=== PATIENT | male | born 1940 | race Caucasian/White ===

== ENCOUNTER → 2021-06-19 09:35 | Outpatient (BNVA) | payer MEDICARE, OTHER, SELFPAY | PROVIDERS: PCP Internal Medicine; Visit Provider Internal Medicine | DX: I49.5 Sick sinus syndrome (principal); Z95.0 Presence of cardiac pacemaker ==

== ENCOUNTER → 2021-09-16 13:56 | Outpatient (BNVA) | payer MEDICARE, OTHER, SELFPAY | PROVIDERS: PCP Internal Medicine; Visit Provider Internal Medicine Cardiovascular Disease | DX: I49.5 Sick sinus syndrome (principal); Z95.0 Presence of cardiac pacemaker; I10 Essential (primary) hypertension; R42 Dizziness and giddiness; F17.210 Nicotine dependence, cigarettes, uncomplicated | CPT/HCPCS: 99213 ==

== ENCOUNTER → 2022-03-10 13:36 | Outpatient (BNVA) | payer MEDICARE, OTHER, SELFPAY | PROVIDERS: PCP Internal Medicine; Visit Provider Urology | DX: R97.20 Elevated prostate specific antigen [PSA] (principal); N41.9 Inflammatory disease of prostate, unspecified; G30.9 Alzheimer's disease, unspecified; F02.80 Dementia in other diseases classified elsewhere, unspecified severity, without behavioral disturbance, psychotic disturbance, mood disturbance, and anxiety; I49.5 Sick sinus syndrome; R33.9 Retention of urine, unspecified; R39.9 Unspecified symptoms and signs involving the genitourinary system; R82.71 Bacteriuria | CPT/HCPCS: 51741; 51798; 81003; 87077; 87086; 87186; 99203 ==

== ENCOUNTER → 2022-03-25 11:17 | Outpatient (BNVA) | payer MEDICARE, OTHER, SELFPAY | PROVIDERS: PCP Internal Medicine; Visit Provider Internal Medicine Cardiovascular Disease | DX: I49.5 Sick sinus syndrome (principal); Z95.0 Presence of cardiac pacemaker; I10 Essential (primary) hypertension; E78.5 Hyperlipidemia, unspecified; F17.210 Nicotine dependence, cigarettes, uncomplicated | CPT/HCPCS: 99213 ==

== ENCOUNTER → 2022-03-31 13:14 | Outpatient (BNVA) | payer MEDICARE, OTHER, SELFPAY | PROVIDERS: PCP Internal Medicine; Visit Provider Urology | DX: R39.89 Other symptoms and signs involving the genitourinary system (principal); R97.20 Elevated prostate specific antigen [PSA]; G30.9 Alzheimer's disease, unspecified; F02.80 Dementia in other diseases classified elsewhere, unspecified severity, without behavioral disturbance, psychotic disturbance, mood disturbance, and anxiety; I49.5 Sick sinus syndrome; R33.9 Retention of urine, unspecified; R39.9 Unspecified symptoms and signs involving the genitourinary system; R82.71 Bacteriuria | CPT/HCPCS: 55700; 76872; 76942; 88305 ==

== ENCOUNTER 2022-04-19 07:29 | Outpatient (CLI) | payer MEDICARE, OTHER, SELFPAY ==
[2022-04-19 08:11] LABS: Blood Urea Nitrogen 19 mg/dL (8-23)
[2022-04-19] MEDS: iohexol 350 mg/mL 500 mL Btl (per mL) IV (08:22)
--- NOTE | 2022-04-19 08:30 | CTR_ITS ---
PROCEDURE INFORMATION: Exam: CT Abdomen And Pelvis Without And With Contrast Exam date and time: 04/19/2022 8:16 AM Age: 81 years old Clinical indication: Initial staging oncological exam. Tumor/polyp/nodule location - prostate cancer. Prior surgery; Surgery date: 6+ months; Surgery type: Appy, left hip, pacemaker; Additional info: Prostate cancer, CT abd/pelvis with and without contrast soon TECHNIQUE: Imaging protocol: Computed tomography of the abdomen and pelvis without and with contrast. 3D rendering (Not supervised by radiologist): MIP and/or 3D reconstructed images were created by the technologist. Radiation optimization: All CT scans at this facility use at least one of these dose optimization techniques: automated exposure control; mA and/or kV adjustment per patient size (includes targeted exams where dose is matched to clinical indication); or iterative reconstruction. Contrast material: OMNIPAQUE 350; Contrast volume: 95 ml; Contrast route: INTRAVENOUS (IV); COMPARISON: CR XR hip LT 2-3V wo/w pel* [id number] 09/22/2017 10:30 AM RADIATION DOSE METRICS: Total DLP (mGy-cm): 3078.32 FINDINGS: Pleural spaces: Small bilateral pleural effusions. Liver: Normal. No mass. Gallbladder and bile ducts: Normal. No calcified stones. No ductal dilation. Pancreas: Normal. No ductal dilation. Spleen: Normal. No splenomegaly. Adrenal glands: Normal. No mass. Kidneys and ureters: There is a 4.5 cm benign-appearing cysts in the left kidney. No hydronephrosis. Stomach and bowel: Sigmoid diverticulosis. No diverticulitis. No significant bowel dilatation or evidence of obstruction. Appendix: No evidence of appendicitis. Intraperitoneal space: Unremarkable. No free air. No significant fluid collection. Vasculature: Abdominal aorta and iliac arteries are calcified. No abdominal aortic aneurysm. Lymph nodes: Unremarkable. No enlarged lymph nodes. Urinary bladder: Unremarkable as visualized. Reproductive: The prostate is unremarkable as visualized. Bones/joints: A left hip prosthesis is present in satisfactory position. Chronic degenerative changes are present in the spine. No acute bony abnormality. Soft tissues: Unremarkable. CT/CT abdomen pelvis wo/w [id number] IMPRESSION: 1. Small pleural effusions. 2. No acute abnormality in the abdomen.. No evidence of metastatic disease. COMMENTS: Consistent with the [employer]'s Incidental Findings Committee white paper (J Am Adam Radiol 2018): Any incidental renal lesion less than 1 cm or classified as too small to characterize, or any incidental cystic renal lesion characterized as simple-appearing, is likely benign. No follow-up imaging is recommended for these lesions per consensus recommendations based on imaging criteria.
== END 2022-04-19 07:30 | disposition home or self-care (01) ==
PROVIDERS: PCP Internal Medicine; Visit Provider Urology
DX: C61 Malignant neoplasm of prostate (principal); J90 Pleural effusion, not elsewhere classified
CPT/HCPCS: 74178; 82565; 84520; Q9967

== ENCOUNTER 2022-04-21 07:26 | Outpatient (CLI) | payer MEDICARE, OTHER, SELFPAY ==
--- NOTE | 2022-04-21 07:45 | NM_ITS ---
WS: [id number] NUCLEAR MEDICINE BONE SCAN Radiopharmaceutical: 26.3 Tc-99m MDP mCi IV Injection site: antecubital Postinjection imaging delay: 1 hr CLINICAL INFORMATION: PROSTATE CANCER COMPARISON: None. FINDINGS: Bone lesions: Multiple punctate foci of radiotracer uptake involving the bilateral ribs suspicious fo r metastatic disease. Patchy areas of uptake within the lower thoracic and lumbar spine some of which may be degenerative but suspicious for metastatic disease. Additional focal area of activity LEFT lo wer cervical spine near the thyroid Soft tissue contours: Normal. Kidneys: Normal. Other findings: Degenerative type uptake involving both AC joints and sternoclavicular joints. Degene rative type uptake involving the base of the 1st LEFT metatarsal and both knees. IMPRESSION: 1. Numerous punctate foci of bony uptake involving the bilateral ribs suspicious for metastatic dise ase. 2. Additional punctate areas of uptake involving the posterior elements in the lower thoracic and heena mbar spine some of which may be degenerative but suspicious for metastatic disease. 3. aAdditional punctate focus of uptake in the LEFT lower cervical spine suspicious for metastatic d isease.
== END 2022-04-21 07:27 | disposition home or self-care (01) ==
LOC: RAD 07:30
PROVIDERS: PCP Internal Medicine; Visit Provider Urology
DX: C61 Malignant neoplasm of prostate (principal); R39.9 Unspecified symptoms and signs involving the genitourinary system; R33.8 Other retention of urine; N41.9 Inflammatory disease of prostate, unspecified; Z98.890 Other specified postprocedural states
CPT/HCPCS: 51798; 78306; 81003; 99214; A9561

== ENCOUNTER → 2022-04-22 09:20 | Outpatient (BNVA) | payer MEDICARE, OTHER, SELFPAY | PROVIDERS: PCP Internal Medicine; Visit Provider Internal Medicine | DX: Z45.010 Encounter for checking and testing of cardiac pacemaker pulse generator [battery] (principal) | CPT/HCPCS: 93296 ==

== ENCOUNTER 2022-05-03 07:39 | Oncology outpatient (recurring) (ONCR) | payer MEDICARE, OTHER, SELFPAY | END 2022-05-18 23:59 | disposition home or self-care (01) | PROVIDERS: PCP Internal Medicine; Visit Provider Internal Medicine Hematology & Oncology | DX: C61 Malignant neoplasm of prostate (principal); J90 Pleural effusion, not elsewhere classified; C79.51 Secondary malignant neoplasm of bone; F17.210 Nicotine dependence, cigarettes, uncomplicated; Z79.52 Long term (current) use of systemic steroids; Z79.818 Long term (current) use of other agents affecting estrogen receptors and estrogen levels; Z79.899 Other long term (current) drug therapy | CPT/HCPCS: 99204 ==

== ENCOUNTER → 2022-05-05 15:22 | Outpatient (BNVA) | payer MEDICARE, OTHER, SELFPAY | PROVIDERS: PCP Internal Medicine; Visit Provider Urology | DX: C61 Malignant neoplasm of prostate (principal); R33.8 Other retention of urine; R39.9 Unspecified symptoms and signs involving the genitourinary system; N41.9 Inflammatory disease of prostate, unspecified | CPT/HCPCS: 99213 ==

== ENCOUNTER → 2022-05-27 10:32 | Outpatient (BNVA) | payer MEDICARE, OTHER, SELFPAY | PROVIDERS: PCP Internal Medicine; Visit Provider Urology | DX: C61 Malignant neoplasm of prostate (principal); R33.8 Other retention of urine; R39.9 Unspecified symptoms and signs involving the genitourinary system; K92.1 Melena | CPT/HCPCS: 36415; 52000; 85025; 99213 ==

== ENCOUNTER 2022-06-07 13:31 | Oncology outpatient (recurring) (ONCR) | payer MEDICARE, OTHER, SELFPAY | END 2022-06-15 23:59 | disposition home or self-care (01) | LOC: ONCMED 13:31 | PROVIDERS: PCP Internal Medicine; Visit Provider Internal Medicine Hematology & Oncology | DX: C61 Malignant neoplasm of prostate (principal); C79.51 Secondary malignant neoplasm of bone; F17.210 Nicotine dependence, cigarettes, uncomplicated; Z79.52 Long term (current) use of systemic steroids; Z79.818 Long term (current) use of other agents affecting estrogen receptors and estrogen levels; Z79.899 Other long term (current) drug therapy | CPT/HCPCS: 99213; 99214 ==

== ENCOUNTER 2022-07-12 08:47 | Oncology outpatient (recurring) (ONCR) | payer MEDICARE, OTHER, SELFPAY ==
[2022-07-12 09:13] LABS: Basophils # 0.1 10^3/uL (0.0-0.1); Basophils % 1.2 %; Eosinophils # 0.2 10^3/uL (0.0-0.8); Eosinophils % 1.5 %; Hematocrit 29.5 % (42.0-52.0); Hemoglobin 9.6 g/dL (11.7-16.6); Lymphocytes # 1.4 10^3/uL (0.8-4.8); Lymphocytes % 14.3 %; Mean Corpuscular HGB Conc 32.5 g/dL (30.0-36.0); Mean Corpuscular Hemoglobin 29.8 pg (28.0-34.0); Mean Corpuscular Volume 91.6 fl (80-94); Monocytes % 9.7 %; Neutrophils # 7.16 10^3/uL (1.8-7.7); Neutrophils % 71.9 %; Nucleated Red Blood Cells % 0 %; Platelet Count 197 10^3/cmm (130-400); Red Blood Count 3.22 10^6/uL (4.1-5.3); Red Cell Distribution Width 16.2 % (12.1-15.1)
[2022-07-12 09:41] LABS: Alanine Aminotransferase 23 U/L (0-41); Albumin Level 3.7 g/dL (3.5-5.2); Alkaline Phosphatase 156 U/L (40-130); Anion Gap 16.6 (5-19); Aspartate Amino Transferase 40 U/L (0-40); Blood Urea Nitrogen 16 mg/dL (8-23); Calcium 8.8 mg/dL (8.5-10.5); Carbon Dioxide 25 mmol/L (22-29); Chloride 94 mmol/L (98-107); Globulin 2.9 g/dL (1.3-4.6); Glucose 116 mg/dL (65-115); Osmolality Calculated 274 mOsm/kg (285-295); Potassium 4.6 mmol/L (3.5-5.1); Sodium 131 mmol/L (136-145); Testosterone Total 227.4 ng/dL (193-740); Total Bilirubin 0.4 mg/dL (0.15-1.2); Total Protein 6.6 g/dL (6.6-8.7)
== END 2022-07-16 23:59 | disposition home or self-care (01) ==
PROVIDERS: Nurse Practitioner; PCP Internal Medicine; Visit Provider Internal Medicine Hematology & Oncology
DX: C61 Malignant neoplasm of prostate (principal); J90 Pleural effusion, not elsewhere classified; C79.51 Secondary malignant neoplasm of bone; F17.210 Nicotine dependence, cigarettes, uncomplicated; Z79.52 Long term (current) use of systemic steroids; Z79.818 Long term (current) use of other agents affecting estrogen receptors and estrogen levels; Z79.899 Other long term (current) drug therapy; C77.8 Secondary and unspecified malignant neoplasm of lymph nodes of multiple regions
CPT/HCPCS: 36415; 80053; 84153; 84403; 85025; 99215

== ENCOUNTER → 2022-07-29 12:36 | Outpatient (BNVA) | payer MEDICARE, OTHER, SELFPAY | PROVIDERS: PCP Internal Medicine; Visit Provider Nurse Practitioner Family | DX: I10 Essential (primary) hypertension (principal); Z95.0 Presence of cardiac pacemaker; F17.210 Nicotine dependence, cigarettes, uncomplicated; Z79.82 Long term (current) use of aspirin | CPT/HCPCS: 99214 ==

== ENCOUNTER 2022-08-02 08:00 | Oncology outpatient (recurring) (ONCR) | payer MEDICARE, OTHER, SELFPAY ==
[2022-07-26] MEDS: denosumab 120 mg SDV SUBCUT (14:31)
[2022-07-26] MEDS: leuprolide 22.5 mg Kit IM (14:32)
[2022-07-26 14:40] VITALS: BP 130/57; PULSE 73; RESP 18; TEMP 36.6; O2SAT 93
[2022-08-02 08:12] LABS: Basophils # 0.1 10^3/uL (0.0-0.1); Basophils % 1.8 %; Eosinophils # 0.4 10^3/uL (0.0-0.8); Eosinophils % 4.7 %; Hematocrit 33.3 % (42.0-52.0); Hemoglobin 10.4 g/dL (11.7-16.6); Lymphocytes # 1.7 10^3/uL (0.8-4.8); Lymphocytes % 21.8 %; Mean Corpuscular HGB Conc 31.2 g/dL (30.0-36.0); Mean Corpuscular Volume 92.8 fl (80-94); Mean Platelet Volume 10.2 fL (7.4-10.4); Monocytes # 0.6 10^3/uL (0.2-0.9); Monocytes % 7.5 %; Neutrophils # 4.91 10^3/uL (1.8-7.7); Neutrophils % 63.6 %; Nucleated Red Blood Cells % 0 %; Platelet Count 232 10^3/cmm (130-400); Red Blood Count 3.59 10^6/uL (4.1-5.3); Red Cell Distribution Width 16.6 % (12.1-15.1); White Blood Count 7.7 10^3/uL (4.0-10.0)
[2022-08-02 08:41] LABS: Alanine Aminotransferase 16 U/L (0-41); Albumin Level 4.1 g/dL (3.5-5.2); Alkaline Phosphatase 186 U/L (40-130); Anion Gap 17.6 (5-19); Aspartate Amino Transferase 37 U/L (0-40); Blood Urea Nitrogen 22 mg/dL (8-23); Calcium 8.4 mg/dL (8.5-10.5); Carbon Dioxide 21 mmol/L (22-29); Chloride 98 mmol/L (98-107); Globulin 3.5 g/dL (1.3-4.6); Glucose 151 mg/dL (65-115); Osmolality Calculated 278 mOsm/kg (285-295); Potassium 5.6 mmol/L (3.5-5.1); Sodium 131 mmol/L (136-145); Testosterone Total 291.9 ng/dL (193-740); Total Bilirubin 0.3 mg/dL (0.15-1.2); Total Protein 7.6 g/dL (6.6-8.7)
[2022-08-02 11:20] LABS: Ferritin 53 ng/mL (30-400); Iron 79 ug/dL (59-158); Percent Saturation 18.4 % (20-50); Total Iron Binding Capacity 429 mcg/dl; Unsaturated Iron Binding 350 ug/dL (112-347)
[2022-08-02 11:36] LABS: Vitamin B12 308 pg/mL (232-1245)
== END 2022-08-15 23:59 | disposition home or self-care (01) ==
PROVIDERS: PCP Internal Medicine; Visit Provider Internal Medicine Hematology & Oncology
DX: C61 Malignant neoplasm of prostate; C77.8 Secondary and unspecified malignant neoplasm of lymph nodes of multiple regions; C79.51 Secondary malignant neoplasm of bone; Z79.52 Long term (current) use of systemic steroids; Z79.818 Long term (current) use of other agents affecting estrogen receptors and estrogen levels; Z79.899 Other long term (current) drug therapy; D64.9 Anemia, unspecified; F17.210 Nicotine dependence, cigarettes, uncomplicated
CPT/HCPCS: 36415; 51741; 51798; 80053; 81003; 82607; 82728; 83540; 83550; 84153; 84403; 85025; 96372; 99213; 99214; J0897; J9217

== ENCOUNTER 2022-08-25 07:49 | Oncology outpatient (recurring) (ONCR) | payer MEDICARE, OTHER, SELFPAY ==
[2022-08-25 08:20] LABS: Basophils # 0.1 10^3/uL (0.0-0.1); Basophils % 0.9 %; Eosinophils # 0.2 10^3/uL (0.0-0.8); Hematocrit 32.2 % (42.0-52.0); Hemoglobin 10.1 g/dL (11.7-16.6); Lymphocytes # 1.3 10^3/uL (0.8-4.8); Lymphocytes % 16.7 %; Mean Corpuscular HGB Conc 31.4 g/dL (30.0-36.0); Mean Corpuscular Hemoglobin 30.1 pg (28.0-34.0); Mean Corpuscular Volume 96.1 fl (80-94); Mean Platelet Volume 9.3 fL (7.4-10.4); Monocytes # 0.5 10^3/uL (0.2-0.9); Monocytes % 6.3 %; Neutrophils # 5.69 10^3/uL (1.8-7.7); Nucleated Red Blood Cells % 0 %; Platelet Count 252 10^3/cmm (130-400); Red Blood Count 3.35 10^6/uL (4.1-5.3); Red Cell Distribution Width 16.5 % (12.1-15.1); White Blood Count 7.7 10^3/uL (4.0-10.0)
[2022-08-25 09:31] LABS: Alanine Aminotransferase 17 U/L (0-41); Albumin Level 4.1 g/dL (3.5-5.2); Alkaline Phosphatase 161 U/L (40-130); Aspartate Amino Transferase 20 U/L (0-40); Blood Urea Nitrogen 26 mg/dL (8-23); Calcium 7.6 mg/dL (8.5-10.5); Carbon Dioxide 20 mmol/L (22-29); Chloride 100 mmol/L (98-107); Ferritin 46 ng/mL (30-400); Globulin 2.7 g/dL (1.3-4.6); Glucose 112 mg/dL (65-115); Iron 80 ug/dL (59-158); Osmolality Calculated 276 mOsm/kg (285-295); Percent Saturation 22.7 % (20-50); Sodium 130 mmol/L (136-145); Total Bilirubin 0.2 mg/dL (0.15-1.2); Total Iron Binding Capacity 351 mcg/dl; Total Protein 6.8 g/dL (6.6-8.7); Unsaturated Iron Binding 271 ug/dL (112-347)
[2022-08-25] MEDS: denosumab 120 mg SDV SUBCUT (10:32)
[2022-08-25 11:26] LABS: Potassium 6.5 mmol/L (3.5-5.1)
[2022-08-25] MEDS: sodium chloride 0.9% 250 ML IV (14:06)
[2022-08-25 15:49] LABS: Potassium 5.6 mmol/L (3.5-5.1)
== END 2022-09-15 23:59 | disposition home or self-care (01) ==
PROVIDERS: Nurse Practitioner Family; PCP Internal Medicine; Visit Provider Internal Medicine Hematology & Oncology
DX: C61 Malignant neoplasm of prostate; C79.51 Secondary malignant neoplasm of bone; C77.8 Secondary and unspecified malignant neoplasm of lymph nodes of multiple regions; E86.0 Dehydration; E87.5 Hyperkalemia; E83.51 Hypocalcemia; Z79.818 Long term (current) use of other agents affecting estrogen receptors and estrogen levels; Z79.52 Long term (current) use of systemic steroids; Z79.899 Other long term (current) drug therapy; D64.9 Anemia, unspecified
CPT/HCPCS: 36415; 80053; 82728; 83540; 83550; 84132; 84153; 85025; 96372; 99214; J0897; J7040

== ENCOUNTER 2022-09-22 09:18 | Oncology outpatient (recurring) (ONCR) | payer MEDICARE, OTHER, SELFPAY ==
[2022-09-22 09:31] VITALS: BP 166/83; PULSE 76; RESP 18; TEMP 36.6; O2SAT 98
[2022-09-22 09:33] LABS: Basophils # 0.1 10^3/uL (0.0-0.1); Basophils % 0.9 %; Eosinophils # 0.1 10^3/uL (0.0-0.8); Eosinophils % 1.5 %; Hematocrit 33.9 % (42.0-52.0); Hemoglobin 10.9 g/dL (11.7-16.6); Lymphocytes # 1.3 10^3/uL (0.8-4.8); Lymphocytes % 20.5 %; Mean Corpuscular HGB Conc 32.2 g/dL (30.0-36.0); Mean Corpuscular Hemoglobin 30.7 pg (28.0-34.0); Mean Corpuscular Volume 95.5 fl (80-94); Mean Platelet Volume 8.8 fL (7.4-10.4); Monocytes # 0.5 10^3/uL (0.2-0.9); Monocytes % 8.3 %; Neutrophils # 4.47 10^3/uL (1.8-7.7); Neutrophils % 68.5 %; Nucleated Red Blood Cells % 0 %; Platelet Count 260 10^3/cmm (130-400); Red Blood Count 3.55 10^6/uL (4.1-5.3); Red Cell Distribution Width 15.4 % (12.1-15.1); White Blood Count 6.5 10^3/uL (4.0-10.0)
[2022-09-22 10:05] LABS: Alanine Aminotransferase 13 U/L (0-41); Albumin Level 4.3 g/dL (3.5-5.2); Alkaline Phosphatase 157 U/L (40-130); Anion Gap 15.9 (5-19); Aspartate Amino Transferase 17 U/L (0-40); Blood Urea Nitrogen 26 mg/dL (8-23); Calcium 8.5 mg/dL (8.5-10.5); Carbon Dioxide 22 mmol/L (22-29); Chloride 93 mmol/L (98-107); Globulin 2.8 g/dL (1.3-4.6); Glucose 105 mg/dL (65-115); Osmolality Calculated 265 mOsm/kg (285-295); Potassium 5.9 mmol/L (3.5-5.1); Sodium 125 mmol/L (136-145); Total Bilirubin 0.3 mg/dL (0.15-1.2); Total Protein 7.1 g/dL (6.6-8.7)
[2022-09-22] MEDS: denosumab 120 mg SDV SUBCUT (11:50)
[2022-09-22] MEDS: sodium chloride 0.9% 250 ML IV (11:51)
[2022-09-22 15:51] LABS: Potassium 5.1 mmol/L (3.5-5.1)
[2022-09-22 16:00] VITALS: BP 122/64; PULSE 61; RESP 16; TEMP 36.1; O2SAT 94
== END 2022-10-15 23:59 | disposition home or self-care (01) ==
PROVIDERS: PCP Internal Medicine; Visit Provider Internal Medicine Hematology & Oncology
DX: C61 Malignant neoplasm of prostate; C79.51 Secondary malignant neoplasm of bone; E83.51 Hypocalcemia; R19.7 Diarrhea, unspecified; E87.5 Hyperkalemia; Z79.899 Other long term (current) drug therapy; F17.210 Nicotine dependence, cigarettes, uncomplicated
CPT/HCPCS: 80053; 84132; 84153; 85025; 96360; 96372; 99214; J0897; J7050

== ENCOUNTER 2022-10-20 13:07 | Oncology outpatient (recurring) (ONCR) | payer MEDICARE, OTHER, SELFPAY ==
[2022-10-20 13:19] VITALS: BP 97/57; PULSE 79; RESP 18; TEMP 37.1; O2SAT 93
[2022-10-20 13:32] LABS: Basophils # 0.1 10^3/uL (0.0-0.1); Basophils % 1.2 %; Eosinophils # 0.1 10^3/uL (0.0-0.8); Eosinophils % 1.3 %; Hematocrit 30.9 % (42.0-52.0); Hemoglobin 9.9 g/dL (11.7-16.6); Lymphocytes # 1.6 10^3/uL (0.8-4.8); Mean Corpuscular Hemoglobin 31.4 pg (28.0-34.0); Mean Corpuscular Volume 98.1 fl (80-94); Mean Platelet Volume 9.3 fL (7.4-10.4); Monocytes # 0.5 10^3/uL (0.2-0.9); Monocytes % 8.2 %; Neutrophils # 3.82 10^3/uL (1.8-7.7); Nucleated Red Blood Cells % 0 %; Platelet Count 255 10^3/cmm (130-400); Red Blood Count 3.15 10^6/uL (4.1-5.3); Red Cell Distribution Width 15.1 % (12.1-15.1); White Blood Count 6.1 10^3/uL (4.0-10.0)
[2022-10-20 15:11] LABS: Alanine Aminotransferase 14 U/L (0-41); Alkaline Phosphatase 111 U/L (40-130); Anion Gap 16.6 (5-19); Aspartate Amino Transferase 14 U/L (0-40); Blood Urea Nitrogen 34 mg/dL (8-23); Calcium 8.1 mg/dL (8.5-10.5); Carbon Dioxide 22 mmol/L (22-29); Chloride 101 mmol/L (98-107); Globulin 2.4 g/dL (1.3-4.6); Glucose 88 mg/dL (65-115); Osmolality Calculated 285 mOsm/kg (285-295); Potassium 5.6 mmol/L (3.5-5.1); Sodium 134 mmol/L (136-145); Total Bilirubin 0.2 mg/dL (0.15-1.2); Total Protein 6.4 g/dL (6.6-8.7)
[2022-10-20] MEDS: leuprolide 22.5 mg Kit IM (17:21)
== END 2022-11-15 23:59 | disposition home or self-care (01) ==
PROVIDERS: PCP Internal Medicine; Visit Provider Internal Medicine Hematology & Oncology
DX: C61 Malignant neoplasm of prostate; C77.8 Secondary and unspecified malignant neoplasm of lymph nodes of multiple regions; C79.51 Secondary malignant neoplasm of bone; R53.0 Neoplastic (malignant) related fatigue; R63.4 Abnormal weight loss; Z68.23 Body mass index [BMI] 23.0-23.9, adult; R42 Dizziness and giddiness; M25.59 Pain in other specified joint; R20.0 Anesthesia of skin; E87.5 Hyperkalemia; E83.51 Hypocalcemia; Z79.818 Long term (current) use of other agents affecting estrogen receptors and estrogen levels; Z79.899 Other long term (current) drug therapy
CPT/HCPCS: 36415; 80053; 84153; 85025; 96402; 99214; J9217

== ENCOUNTER → 2022-11-16 15:40 | Outpatient (BNVA) | payer MEDICARE, OTHER, SELFPAY | PROVIDERS: PCP Internal Medicine; Visit Provider Internal Medicine | DX: Z45.010 Encounter for checking and testing of cardiac pacemaker pulse generator [battery] (principal) | CPT/HCPCS: 93296 ==

== ENCOUNTER 2022-12-15 13:00 | Oncology outpatient (recurring) (ONCR) | payer MEDICARE, OTHER, SELFPAY ==
[2022-11-17 13:35] VITALS: BMI 23.0
[2022-11-17 13:36] VITALS: BP 134/57; PULSE 70; RESP 17; TEMP 36.4; O2SAT 93
[2022-11-17 14:16] LABS: Basophils # 0.1 10^3/uL (0.0-0.1); Basophils % 0.8 %; Eosinophils % 0.5 %; Hematocrit 31.9 % (42.0-52.0); Hemoglobin 10.3 g/dL (11.7-16.6); Lymphocytes # 1.2 10^3/uL (0.8-4.8); Lymphocytes % 15.6 %; Mean Corpuscular HGB Conc 32.3 g/dL (30.0-36.0); Mean Corpuscular Hemoglobin 32.8 pg (28.0-34.0); Mean Corpuscular Volume 101.6 fl (80-94); Monocytes # 0.5 10^3/uL (0.2-0.9); Monocytes % 7.2 %; Neutrophils # 5.66 10^3/uL (1.8-7.7); Neutrophils % 75.8 %; Nucleated Red Blood Cells % 0 %; Platelet Count 246 10^3/cmm (130-400); Red Blood Count 3.14 10^6/uL (4.1-5.3); Red Cell Distribution Width 13.7 % (12.1-15.1); White Blood Count 7.5 10^3/uL (4.0-10.0)
[2022-11-17 14:36] LABS: Alanine Aminotransferase 18 U/L (0-41); Albumin Level 3.9 g/dL (3.5-5.2); Alkaline Phosphatase 100 U/L (40-130); Anion Gap 13.5 (5-19); Aspartate Amino Transferase 20 U/L (0-40); Blood Urea Nitrogen 30 mg/dL (8-23); Calcium 8.9 mg/dL (8.5-10.5); Carbon Dioxide 25 mmol/L (22-29); Chloride 101 mmol/L (98-107); Globulin 2.4 g/dL (1.3-4.6); Glucose 102 mg/dL (65-115); Osmolality Calculated 284 mOsm/kg (285-295); Potassium 5.5 mmol/L (3.5-5.1); Sodium 134 mmol/L (136-145); Total Bilirubin 0.2 mg/dL (0.15-1.2); Total Protein 6.3 g/dL (6.6-8.7)
[2022-11-17] MEDS: denosumab 120 mg SDV SUBCUT (15:17)
== END 2022-12-16 23:59 | disposition home or self-care (01) ==
PROVIDERS: Nurse Practitioner Family; PCP Internal Medicine; Visit Provider Internal Medicine Hematology & Oncology
DX: Z53.9 Procedure and treatment not carried out, unspecified reason (principal)
CPT/HCPCS: 80053; 85025; 96372; J0897

== ENCOUNTER 2023-01-12 13:00 | Oncology outpatient (recurring) (ONCR) | payer MEDICARE, OTHER, SELFPAY ==
[2023-01-12 13:43] VITALS: BP 123/65; PULSE 81; RESP 18; TEMP 36.4; O2SAT 95
[2023-01-12 14:10] LABS: Basophils # 0.1 10^3/uL (0.0-0.1); Basophils % 0.5 %; Eosinophils % 0.3 %; Hematocrit 33.7 % (37-53); Lymphocytes # 1.2 10^3/uL (0.8-4.8); Lymphocytes % 11.8 %; Mean Corpuscular Hemoglobin 31.2 pg (27-33); Mean Corpuscular Volume 97.4 fl (82-101); Mean Platelet Volume 10.1 fL (7.4-10.4); Monocytes # 0.8 10^3/uL (0.2-0.9); Monocytes % 8.3 %; Neutrophils # 7.96 10^3/uL (1.8-7.7); Neutrophils % 78.1 %; Nucleated Red Blood Cells % 0 %; Platelet Count 242 10^3/cmm (157-399); Red Blood Count 3.46 10^6/uL (3.85-5.65); Red Cell Distribution Width 12.6 % (12.1-15.1); White Blood Count 10.18 10^3/uL (3.29-11.43)
[2023-01-12 14:42] LABS: Alanine Aminotransferase 16 U/L (0-41); Albumin Level 3.8 g/dL (3.5-5.2); Alkaline Phosphatase 152 U/L (40-130); Anion Gap 11.4 (5-19); Aspartate Amino Transferase 37 U/L (0-40); Blood Urea Nitrogen 26 mg/dL (8-23); Calcium 8.8 mg/dL (8.5-10.5); Carbon Dioxide 28 mmol/L (22-29); Chloride 99 mmol/L (98-107); Globulin 3.2 g/dL (1.3-4.6); Glucose 113 mg/dL (65-115); Osmolality Calculated 284 mOsm/kg (285-295); Potassium 4.4 mmol/L (3.5-5.1); Sodium 134 mmol/L (136-145); Total Bilirubin 0.3 mg/dL (0.15-1.2)
[2023-01-12 15:19] LABS: Testosterone Total 2.5 ng/dL (193-740)
[2023-01-12] MEDS: leuprolide 22.5 mg Kit IM (16:15)
[2023-01-12] MEDS: denosumab 120 mg SDV SUBCUT (16:15)
== END 2023-01-15 23:59 | disposition home or self-care (01) ==
PROVIDERS: Nurse Practitioner Family; PCP Internal Medicine; Visit Provider Internal Medicine Medical Oncology
DX: C61 Malignant neoplasm of prostate (principal); F32.A Depression, unspecified; Z79.899 Other long term (current) drug therapy
CPT/HCPCS: 36415; 80053; 84153; 84403; 85025; 96372; 96402; 99214; J0897; J9217

== ENCOUNTER 2023-01-27 07:05 | Outpatient (CLI) | payer MEDICARE, OTHER, SELFPAY ==
[2023-01-27] MEDS: iohexol 350 mg/mL 500 mL Btl (per mL) IV (08:22)
[2023-01-27] MEDS: iohexol 350 mg/mL 500 mL Btl (per mL) PO (08:22)
--- NOTE | 2023-01-27 08:30 | CTR_ITS ---
PROCEDURE INFORMATION: Exam: CT Chest With Contrast; Diagnostic Exam date and time: 01/27/2023 8:33 AM Age: 82 years old Clinical indication: Abnormal findings; Abnormal lab test; Other: Increased psa; Abnormal diagnostic tests; Prior surgery; Surgery date: 6+ months; Surgery type: Appy, pacemaker, lt hip; Patient HX: Cancer (type)--prostate, bone, lymph nodes TECHNIQUE: Imaging protocol: Diagnostic computed tomography of the chest with contrast. Radiation optimization: All CT scans at this facility use at least one of these dose optimization techniques: automated exposure control; mA and/or kV adjustment per patient size (includes targeted exams where dose is matched to clinical indication); or iterative reconstruction. Contrast material: OMNI 350; Contrast volume: 100 ml; Contrast route: INTRAVENOUS (IV); REPORTING DATA: Count of CT and Cardiac NM exams in prior 12 months: This patient has received [address] and 0 known cardiac nuclear medicine studies in the 12 months prior to the current study. COMPARISON: NM bone scan whole body* [id number] 04/21/2022 7:45 AM RADIATION DOSE METRICS: Total DLP (mGy-cm): 679.88 FINDINGS: Tubes, catheters and devices: There is a dual-lead AICD with leads positioned in the right atrium and right ventricle. Lungs: There is moderate diffuse centrilobular emphysema. There is minimal upper lung predominant paraseptal emphysema. There is minimal subpleural fine reticular opacity in the lower lungs bilaterally. There is an 11 x 10 mm focus of mixed ground-glass and reticular opacity in the left upper lobe on axial series 4, image 12. Pleural spaces: There is no pleural effusion or pneumothorax. Heart: Heart size is normal. There is no pericardial effusion. Lymph nodes: There is no mediastinal or hilar lymphadenopathy. Vasculature: There is mild aortic atherosclerotic disease. The central pulmonary arteries are unremarkable. Bones/joints: There are sclerotic osseous lesions involving the ribs, thoracic spine, left clavicle, left humerus, and bilateral scapulae. No acute fracture. Soft tissues: The extrathoracic soft tissues are unremarkable. PROCEDURE INFORMATION: Exam: CT Abdomen And Pelvis With Contrast Exam date and time: 01/27/2023 8:33 AM Age: 82 years old Clinical indication: Abnormal findings; Abnormal lab test; Other: Increased psa; Abnormal diagnostic tests; Prior surgery; Surgery date: 6+ months; Surgery type: Appy, pacemaker, lt hip; Patient HX: Cancer (type)--prostate, bone, lymph nodes TECHNIQUE: Imaging protocol: Computed tomography of the abdomen and pelvis with contrast. Radiation optimization: All CT scans at this facility use at least one of these dose optimization techniques: automated exposure control; mA and/or kV adjustment per patient size (includes targeted exams where dose is matched to clinical indication); or iterative reconstruction. Contrast material: OMNI 350; Contrast volume: 100 ml; Contrast route: INTRAVENOUS (IV); REPORTING DATA: Count of CT and Cardiac NM exams in prior 12 months: This patient has received [address] and 0 known cardiac nuclear medicine studies in the 12 months prior to the current study. COMPARISON: CT abdomen pelvis wo/w [id number] 04/19/2022 8:16 AM RADIATION DOSE METRICS: Total DLP (mGy-cm): 679.88 FINDINGS: Liver: The liver is normal. Gallbladder and bile ducts: The gallbladder is nondistended. No stones are seen. There is trace pericholecystic fluid in the gallbladder fossa. There is no biliary dilation. Pancreas: The pancreas is unremarkable. Spleen: The spleen is unremarkable. Adrenal glands: The adrenal glands are hypertrophic bilaterally. Kidneys and ureters: Bilateral renal vascular calcification. There are simple cysts in the left kidney. There is no hydronephrosis or stones. Stomach and bowel: The stomach is decompressed, preventing meaningful evaluation of wall thickness. The small bowel is nondilated. There is moderate sigmoid colonic diverticulosis without evidence of diverticulitis. Appendix: The appendix is absent. Intraperitoneal space: Trace simple free fluid in the lower abdomen. No intraperitoneal free air. Vasculature: There is moderate aortic atherosclerotic disease. The portal, splenic and superior mesenteric veins are patent. Lymph nodes: There is a 10 x 10 mm retroperitoneal lymph node in the left upper para-aortic region on axial series 5, image 30 which is slightly increased since 04/19/2022 when it measured 8 x 7 mm. No other enlarged retroperitoneal lymph nodes. No pelvic or inguinal lymph node enlargement. No mesenteric lymph node enlargement. Urinary bladder: There is mild diffuse bladder wall thickening suggesting muscular hypertrophy. Reproductive: The prostate and seminal vesicles are unremarkable. Bones/joints: There are sclerotic osseous metastases involving the lumbar spine, pelvis and sacrum. The left hip prosthesis is intact and well aligned. No acute fracture. Soft tissues: The abdominal wall is intact. CT/CT chest abdpel w/*[id number] IMPRESSION: 1. Sclerotic osseous metastases. 2. 11 x 10 mm focus of mixed ground-glass and reticular opacity in the left upper lobe is nonspecific and may represent focal fibrosis or minimal bronchiolitis. Metastasis is less likely but not unequivocally excluded. Recommend attention to this finding at follow-up. 3. Paraseptal and centrilobular emphysema with minimal subpleural reticular opacity in the lower lungs suggesting interstitial lung disease. IMPRESSION: 1. Sclerotic osseous metastases are new since 04/19/2022. 2. Borderline enlarged retroperitoneal lymph node (10 x 10 mm) slightly increased in size since 04/19/2022 (8 x 7 mm). Recommend attention to this finding at follow-up. 3. Trace intraperitoneal free fluid of unknown significance. 4. New bilateral adrenal hypertrophy. COMMENTS: Consistent with the [employer]'s Incidental Findings Committee white paper (J Am Adam Radiol 2018): Any incidental renal lesion less than 1 cm or classified as too small to characterize, or any incidental cystic renal lesion characterized as simple-appearing, is likely benign. No follow-up imaging is recommended for these lesions per consensus recommendations based on imaging criteria.
== END 2023-01-27 07:06 | disposition home or self-care (01) ==
LOC: RAD 07:06
PROVIDERS: PCP Internal Medicine; Visit Provider Nurse Practitioner Family
DX: C61 Malignant neoplasm of prostate (principal); C79.51 Secondary malignant neoplasm of bone; R59.0 Localized enlarged lymph nodes; I10 Essential (primary) hypertension; I49.5 Sick sinus syndrome; E78.5 Hyperlipidemia, unspecified; Z95.0 Presence of cardiac pacemaker; Z72.0 Tobacco use
CPT/HCPCS: 71260; 74177; 99214; Q9967

== ENCOUNTER 2023-01-28 07:45 | Outpatient (CLI) | payer MEDICARE, OTHER, SELFPAY ==
--- NOTE | 2023-01-28 08:45 | NM_ITS ---
WS: [id number] NUCLEAR MEDICINE BONE SCAN Radiopharmaceutical: 26.8 Tc-99m MDP mCi IV Injection site: Antecubital Postinjection imaging delay: 1 hr CLINICAL INFORMATION: increasing PSA COMPARISON: 04/21/2022 FINDINGS: Bone lesions: Areas of increased activity compatible with metastatic disease involving the ribs, thor acic spine, LEFT humerus, LEFT sterno clavicular junction extending into the sternum, and LEFT greate r than RIGHT scapula. Punctate foci of uptake in the thoracic and lumbar spine are progressed compare d to previous. Thoracolumbar scoliosis. Soft tissue contours: Normal. Kidneys: Normal. Other findings: Degenerative type uptake involving both AC joints and sternoclavicular joints. Degene rative type uptake involving the base of the 1st LEFT metatarsal and both knees. IMPRESSION: 1. Progressed metastatic disease compared to previous worse involving the sternoclavicular junction with new sternal lesion. 2. Progressed punctate lesions involving the thoracic and lumbar spine. 3. Numerous punctate foci of uptake involving the ribs appears progressed.
== END 2023-01-28 07:46 | disposition home or self-care (01) ==
LOC: RAD 07:46
PROVIDERS: PCP Internal Medicine; Visit Provider Nurse Practitioner Family
DX: C79.51 Secondary malignant neoplasm of bone (principal); C61 Malignant neoplasm of prostate
CPT/HCPCS: 78306; A9561

== ENCOUNTER 2023-02-09 20:41 | Inpatient (IN) | payer MEDICARE, OTHER, SELFPAY ==
--- NOTE | 2023-02-09 | USR_ITS ---
NOTE: Report was unsigned for reason: Order was edited. Original Signature date and time was: 02/10/23 @ 1:10 AM PROCEDURE INFORMATION: Exam: US Duplex Lower Extremity Veins, Bilateral Exam date and time: 02/10/2023 12:20 AM Age: 82 years old Clinical indication: Condition or disease; Patient HX: Prostate cancer with mets, elevated d-dimer, shortness of breath; Additional info: Sandhu TECHNIQUE: Imaging protocol: Real-time duplex ultrasound of the bilateral extremities with 2-D pierre scale, color Doppler flow and spectral waveform analysis including responses to compression and other maneuvers (when performed) with image documentation. Complete exam focused on the lower extremity veins. COMPARISON: CT chest abdpel w/*[id number] 01/27/2023 8:33 AM FINDINGS: Right deep veins: Unremarkable. The common femoral, femoral, proximal profunda femoral and popliteal veins are patent without thrombus. Normal Doppler waveforms. Normal compressibility and/or augmentation response. Left deep veins: Unremarkable. The common femoral, femoral, proximal profunda femoral and popliteal veins are patent without thrombus. Normal Doppler waveforms. Normal compressibility and/or augmentation response. Superficial veins: Bilateral saphenofemoral junctions are patent without thrombus. Soft tissues: Right calf edema. Left calf edema. IMPRESSION: No evidence of acute deep venous thrombosis. Mild edema noted in each. MTDD
--- NOTE | 2023-02-09 20:47 | ECG_ITS ---
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 Measurements Intervals [place] Rate: 102 P: 69 NE: 209 QRS: 160 QRSD: 149 T: 73 QT: 370 QTc: 482 Interpretive Statements ELECTRONIC VENTRICULAR PACEMAKER Compared to ECG 06/05/2015 05:59:25 AV dual-paced complex(es) or rhythm no longer present Electronically Signed On 02-09-2023 23:38:17 CDT by Gomez Sanchez M.D. [id number]
[2023-02-09 20:48] VITALS: BP 136/81; PULSE 99; RESP 16; TEMP 36.5; O2SAT 93; BMI 25.0
--- NOTE | 2023-02-09 20:55 | XRR_ITS ---
PROCEDURE INFORMATION: Exam: XR Chest Exam date and time: 02/09/2023 9:15 PM Age: 82 years old Clinical indication: Shortness of breath; Additional info: SOA TECHNIQUE: Imaging protocol: Radiologic exam of the chest. Views: 1 view. COMPARISON: CT chest abdpel w/*[id number] 01/27/2023 8:33 AM FINDINGS: Tubes, catheters and devices: Left subclavian transvenous atrioventricular pacemaker is in expected position. Lungs: Lungs are hyperinflated. Clear parenchyma. Pleural spaces: No pleural effusion. No pneumothorax. Heart/Mediastinum: Mildly enlarged cardiac silhouette is stable from prior. Bones/joints: Bone anchors are visible in the left humeral head. Subjective bony demineralization. XR/XR chest 1V [id number] IMPRESSION: Hyperinflated but clear lungs. No other acute cardiopulmonary abnormality.
[2023-02-09 21:10] LABS: Hematocrit 30.7 % (37-53); Mean Corpuscular HGB Conc 32.6 g/dL (30-55); Mean Corpuscular Hemoglobin 30.5 pg (27-33); Mean Corpuscular Volume 93.6 fl (82-101); Mean Platelet Volume 10.6 fL (7.4-10.4); Platelet Count 91 10^3/cmm (157-399); Red Blood Count 3.28 10^6/uL (3.85-5.65); Red Cell Distribution Width 15.1 % (12.1-15.1); White Blood Count 11.81 10^3/uL (3.29-11.43)
[2023-02-09 21:19] VITALS: BP 139/77; PULSE 93; RESP 17; O2SAT 98
[2023-02-09 21:26] LABS: Troponin(5th) Baseline 35 ng/L (0-15)
[2023-02-09 21:37] LABS: Slide Review Slide Review Perform
[2023-02-09 21:39] LABS: Absolute Segmented Neutrophil 8.7 10/cmm (1.6-7.1); Band Neutrophils Absolute 0.1 10^3/cmm (0.0-1.2); Eosinophils 0 %; Lymphocytes 10 %; Monocytes Absolute 1.1 10^3/cmm (0.1-0.6); Segmented Neutrophils 74 %; Total Cells Counted 100 (0-100)
[2023-02-09 21:40] LABS: Absolute Neutrophil 8.9 10^3/cmm (1.4-6.5); Platelet Estimate Decreased (Normal)
[2023-02-09 21:45] LABS: Alanine Aminotransferase 178 U/L (0-41); Albumin Level 3.7 g/dL (3.5-5.2); Alkaline Phosphatase 356 U/L (40-130); Aspartate Amino Transferase 228 U/L (0-40); Blood Urea Nitrogen 29 mg/dL (8-23); Calcium 8.3 mg/dL (8.5-10.5); Carbon Dioxide 22 mmol/L (22-29); Chloride 91 mmol/L (98-107); Globulin 2.3 g/dL (1.3-4.6); Glucose 138 mg/dL (65-115); NT Pro B Type Natriuretic Pept 15717 pg/mL (0-450); Osmolality Calculated 270 mOsm/kg (285-295); Sodium 126 mmol/L (136-145); Total Bilirubin 0.7 mg/dL (0.15-1.2)
[2023-02-09 21:50] LABS: Anion Gap 17.5 (5-19); Potassium 4.5 mmol/L (3.5-5.1)
--- NOTE | 2023-02-09 22:39 | CTR_ITS ---
PROCEDURE INFORMATION: Exam: CTA Chest With Contrast Exam date and time: 02/09/2023 11:14 PM Age: 82 years old Clinical indication: Shortness of breath; Prior surgery; Surgery date: 6+ months; Surgery type: Pacer; Additional info: SOA, per hospitalist TECHNIQUE: Imaging protocol: Computed tomographic angiography of the chest with contrast. Exam focused on the arteries. 3D rendering (Not supervised by radiologist): MIP and/or 3D reconstructed images were created by the technologist. Radiation optimization: All CT scans at this facility use at least one of these dose optimization techniques: automated exposure control; mA and/or kV adjustment per patient size (includes targeted exams where dose is matched to clinical indication); or iterative reconstruction. Contrast material: OMNI 350; Contrast volume: 70 ml; Contrast route: INTRAVENOUS (IV); REPORTING DATA: Count of CT and Cardiac NM exams in prior 12 months: This patient has received 2 known CTs and 0 known cardiac nuclear medicine studies in the 12 months prior to the current study. COMPARISON: CT chest abdpel w/*[id number] 01/27/2023 8:33 AM RADIATION DOSE METRICS: Total DLP (mGy-cm): 412.69 FINDINGS: Tubes, catheters and devices: Left subclavian transvenous atrioventricular pacemaker is in expected position. Pulmonary arteries: Attenuation coefficient in the main pulmonary artery is 150 Hounsfield units, suboptimal. No large or central emboli are demonstrated. Small or peripheral emboli cannot be excluded. Aorta: Mild calcific plaque noted in the normal caliber thoracic aorta. There is insufficient contrast in the aortic lumen to exclude dissection. Thyroid: Homogeneous thyroid. Lungs: Advanced centrilobular emphysema. Subpleural reticular opacities suggest interstitial lung disease. Pleural spaces: Small non loculated bilateral pleural effusions. No pneumothorax. Heart: Aortic valve annulus and leaflet calcifications are noted. Mild cardiomegaly. Coronary arteries: Moderate coronary artery calcification. Lymph nodes: Numerous non pathologically enlarged mediastinal lymph nodes are noted. No axillary adenopathy. Diaphragm: Small sliding hiatal hernia. Gallbladder and bile ducts: Postprandial gallbladder is contracted. Spleen: Normal spleen. Adrenal glands: Thickened adrenals without discrete mass. Kidneys and ureters: Visualized portions of the kidneys are normal. Stomach and bowel: Postprandial stomach. Intraperitoneal space: Low volume ascites noted in the upper abdomen. Bones/joints: Multifocal heterogeneous sclerotic bony lesions are worrisome for metastatic disease. No pathologic fracture. Soft tissues: Mild body wall edema. CT/CT angio chest [id number] IMPRESSION: 1. No large or central pulmonary embolism. Contrast bolus is suboptimal for exclusion of small or peripheral emboli. 2. Bilateral pleural effusions without loculation. Body wall edema. Low volume ascites. Findings are concerning for right heart failure. 3. 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 4. Extensive sclerotic osseous metastatic disease.
--- NOTE | 2023-02-09 22:56 | ECG_ITS ---
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 Measurements Intervals [place] Rate: 93 P: -44 SC: 164 QRS: 116 QRSD: 168 T: 52 QT: 416 QTc: 520 Interpretive Statements ELECTRONIC VENTRICULAR PACEMAKER ABNORMAL RHYTHM ECG Compared to ECG 06/05/2015 05:59:25 AV dual-paced complex(es) or rhythm no longer present Electronically Signed On 02-09-2023 23:39:39 CDT by Gomez Sanchez M.D. [id number]
[2023-02-09 22:57] LABS: Reflex FDPQ test REFLEX FDP QUEST TES
--- NOTE | 2023-02-09 23:01 | ED_ITS ---
HPI - SOB/Dyspnea General: Chief Complaint: Shortness of Breath/Dyspnea Stated Complaint: SOB, swelling in hands and face Time Seen by Provider: 02/09/23 20:53 Source: patient and family Mode of arrival: wheelchair Limitations: no limitations and altered mental status (Patient has Alzheimer's and often repeats questions) History of Present Illness: HPI Narrative: Patient presents emergency department today accompanied by family for evaluation treatment of concerns for worsening shortness of breath. Patient has a history of sick sinus syndrome for which he has a pacemaker. Dr. Sanchez saw this patient on 01/27 for a normal cardiology visit. He had mentioned increased blood pressures, increased chest pains, and increased dyspnea on exertion during that time and EKG showed new finding of A-fib. They did discuss starting anticoagulation but patient declined-stating he wanted to stay on aspirin. Patient does have a significant history of prostate cancer. Patient will cath himself every once in a while to keep the urethra open. He had a CT examination last month which showed metastases into the bones of the pelvis. No other concerning findings on the CT at that time. Patient's family noted decrease in oxygen saturation at home and with his complaints of shortness of breath and noticeable increase in bilateral lower extremity edema, did bring the patient in. They were worried about puffiness in his face earlier today but, notes that it looks to have improved somewhat. Review of Systems General: Reports: 10 or more systems reviewed and unremarkable except in HPI and below PFSH ED PFSH: Medical History Alzheimer disease Dizziness Dyslipidemia Elevated PSA HTN (hypertension) Migraine SSS (sick sinus syndrome) Surgical History Hx of shoulder surgery S/P appendectomy S/P cataract extraction S/P hip replacement Status cardiac pacemaker Family History Father , AT AGE 80 Stroke Mother , AT AGE 26 Bowel obstruction Other CAD (coronary artery disease) Cancer Social History Smoking and tobacco/nicotine status: current every day tobacco/nicotine user cigarettes Packs smoked per day: 1 Years cigarettes smoked: 70 Alcohol intake: never Substance/Drug Use: never Lives independently: Yes Marital status: / service: Yes branch: [employer] Current occupational status: retired Previous occupational history: [employer] Current gender identity: Male Physical Exam Const: COMMON NORMALS: patient oriented x3 GENERAL APPEARANCE: well kempt OTHER: Patient is pleasant, social. Answers much of his own history.. Vital signs relatively stable while using 3 L nasal cannula. HENMT: COMMON NORMALS: normocephalic, atraumatic, external ears normal, Normal external nose present, Normal nasal mucous membranes and turbinates present and moist oral mucous membranes HEAD & SCALP: normocephalic and atraumatic NOSE: Normal external nose present and Normal nasal mucous membranes and turbinates present EXTERNAL EAR: Yes external ears normal Neck/C-Spine: COMMON NORMALS: full ROM Chest: COMMONS NORMALS: normal inspection of the chest (Visible pacemaker bump in left upper chest) Resp: OTHER: No signs of respiratory distress-no obvious retractions or accessory muscle use. 88 to 89% O2 on room air. 92 to 93% on 3 L nasal cannula. Cardio: COMMON NORMALS: regular rate and regular rhythm RATE: regular rate RHYTHM: regular rhythm OTHER: Paced but regular. GI: OTHER: Abdomen is soft, nontender to palpation. Extremity: NARRATIVE EXTREMITY EXAM: Patient moves all limbs independently. Neuro: COMMON NORMALS: patient oriented x3, CN's II-XII intact bilaterally and moves all extremities SPEECH: speech normal Psych: COMMON NORMALS: cooperative, normal affect and activity/motor behavior normal APPEARANCE: Yes grossly normal and Yes well kempt ATTITUDE: Yes calm Course Vital Signs: Vital signs: Vital Signs Temperature 97.7 F 02/09/23 20:48 Pulse Rate 93 02/09/23 21:19 Respiratory Rate 17 02/09/23 21:19 Blood Pressure 139/77 02/09/23 21:19 Pulse Oximetry 98 02/09/23 21:19 Oxygen Delivery Me thod Nasal Cannula 02/09/23 21:19 Oxygen Flow Rate 3 02/09/23 21:19 MDM - SOB/Dyspnea Medical Decision Making Patient presented to the emergency department today for continued dyspnea and worsening edema. Patient was placed on 3 L by nasal cannula as his oxygenation was in the upper 80s upon arrival. Patient had 3+ pitting edema in the lower extremities. While the chest x-ray did not indicate signs of cardiomegaly or pleural effusion, I did check a BNP which was found to be greater than 15,000. Baseline troponin was 35. He also had noticeable elevated LFTs. No previous BNP to compare but last months LFTs were normal. Patient was started on Lasix and we discussed an indwelling Amaro catheter as he does get so out of breath trying to get up and down out of the bed and, as he has had issues with his prostate due to cancer requiring catheterization anyways, he agreed. Having been consulting with Dr. Martinez during this patient's evaluation, he recommended I discussed the case with regarding findings of new onset CHF and acutely elevated LFTs. Dr Ramon also had concerns given the patient's platelet count and requested a DIC profile, D-dimer, and CTA to be ordered. He is however admitting the patient to [facility]. Differential Diagnosis Likely congestive heart failure; Unlikely acute exacerbation of chronic obstructive airways disease, community acquired pneumonia or pulmonary embolism Lab Data 02/09/23 21:00 02/09/23 21:00 Labs/Radiology: Radiology Impressions Chest X-Ray 02/09/23 20:55 IMPRESSION: Hyperinflated but clear lungs. No other acute cardiopulmonary abnormality. Chest CTA 02/09/23 22:39 IMPRESSION: 1. No large or central pulmonary embolism. Contrast bolus is suboptimal for exclusion of small or peripheral emboli. 2. Bilateral pleural effusions without loculation. Body wall edema. Low volume ascites. Findings are concerning for right heart failure. 3. 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 4. Extensive sclerotic osseous metastatic disease. Laboratory Results WBC 11.81 10^3/uL (3.29-11.43) H 02/09/23 21:00 RBC 3.28 10^6/uL (3.85-5.65) L 02/09/23 21:00 Hgb 10.00 g/dL (11.27-16.99) L 02/09/23 21:00 Hct 30.7 % (37-53) L 02/09/23 21:00 MCV 93.6 fl (82-101) 02/09/23 21:00 MCH 30.5 pg (27-33) 02/09/23 21:00 MCHC 32.6 g/dL (30-55) 02/09/23 21:00 RDW 15.1 % (12.1-15.1) 02/09/23 21:00 Plt Count 91 10^3/cmm (157-399) L 02/09/23 21:00 MPV 10.6 fL (7.4-10.4) H 02/09/23 21:00 Lymph % (Auto) Not Reportable 02/09/23 21:00 [place] % (Auto) Not Reportable 02/09/23 21:00 Lymph # (Auto) Not Reportable 02/09/23 21:00 [place] # (Auto) Not Reportable 02/09/23 21:00 Total Counted 100 (0-100) 02/09/23 21:00 Atypical Lymphs % Not Reportable 02/09/23 21:00 Absolute Neutrophils 8.9 10^3/cmm (1.4-6.5) H 02/09/23 21:00 Segmented Neutrophils 74 % 02/09/23:00 Abs Segm Neuts (Man) 8.7 10/cmm (1.6-7.1) H 02/09/23 21:00 Band Neutrophils 1.0 % 02/09/23 21:00 Abs Band Neuts (Man) 0.1 10^3/cmm (0.0-1.2) 02/09/23 21:00 Lymphocytes (Manual) 10 % 02/09/23 21:00 Monocytes (Manual) 9.0 % 02/09/23 21:00 Absolute Monocytes 1.1 10^3/cmm (0.1-0.6) H 02/09/23 21:00 Eosinophils (Manual) 0 % 02/09/23 21:00 Absolute Eosinophils 0.0 10^3/cmm (0.0-0.7) 02/09/23 21:00 Basophils (Manual) 0.0 % 02/09/23 21:00 Absolute Basophils 0.0 10^3/cmm (0.0-0.2) 02/09/23 21:00 Metamyelocytes 2.0 % 02/09/23 21:00 Myelocytes 3.0 % 02/09/23 21:00 Nucleated RBCs 1.0 /100WBC (0-1) 02/09/23 21:00 Platelet Estimate Decreased (Normal) 02/09/23 21:00 PT 21.00 SECONDS (12.1-14.9) H 02/09/23 22:50 INR 1.75 (0.8-1.2) H 02/09/23 22:50 APTT 35.0 SECONDS (23.9-36.7) 02/09/23 22:50 Fibrinogen 155 mg/dL (174-498) L 02/09/23 22:50 D-Dimer >= 20.00 ug/mLFEU (0-0.59) H 02/09/23 22:50 Sodium 126 mmol/L (136-145) L 02/09/23 21:00 Potassium 4.5 mmol/L (3.5-5.1) 02/09/23 21:00 Chloride 91 mmol/L (98-107) L 02/09/23 21:00 Carbon Dioxide 22 mmol/L (22-29) 02/09/23 21:00 Anion Gap 17.5 (5-19) 02/09/23 21:00 BUN 29 mg/dL (8-23) H 02/09/23 21:00 Creatinine 1.1 mg/dL (0.7-1.2) 02/09/23 21:00 GFR Calculation Not Reportable 02/09/23 21:00 Glucose 138 mg/dL (65-115) H 02/09/23 21:00 Calculated Osmolality 270 mOsm/kg (285-295) L 02/09/23 21:00 Calcium 8.3 mg/dL (8.5-10.5) L 02/09/23 21:00 Total Bilirubin 0.7 mg/dL (0.15-1.2) 02/09/23 21:00 AST 228 U/L (0-40) H 02/09/23 21:00 ALT 178 U/L (0-41) H 02/09/23 21:00 Alkaline Phosphatase 356 U/L (40-130) H 02/09/23 21:00 Creatine Kinase 578 U/L (39-308) H* 02/09/23 22:50 Troponin T Baseline 35 ng/L (0-15) H 02/09/23 21:00 Troponin T 120 Minute 33.20 ng/L (0-15) H 02/09/23 22:50 Delta Troponin T -1.80 ABS# (0-10) L 02/09/23 22:50 NT-Pro-B Natriuret Pep 01674 pg/mL (0-450) H 02/09/23 21:00 Total Protein 6.0 g/dL (6.6-8.7) L 02/09/23 21:00 Albumin 3.7 g/dL (3.5-5.2) 02/09/23 21:00 Globulin 2.3 g/dL (1.3-4.6) 02/09/23 21:00 Urine Color Light yellow (Yellow) 02/09/23 22:06 Urine Appearance Clear (CLEAR) 02/09/23 22:06 Urine pH 5 (5-7) 02/09/23 22:06 Ur Specific Ackworth 1.020 (1.005-1.030) 02/09/23 22:06 Urine Protein Neg (Negative) 02/09/23 22:06 Urine Glucose (UA) Norm (Normal) 02/09/23 22:06 Urine Ketones Negative (Negative) 02/09/23 22:06 Urine Blood 2+ (Negative) H 02/09/23 22:06 Urine Nitrate Negative (Negative) 02/09/23 22:06 Urine Bilirubin Neg (Negative) 02/09/23 22:06 Urine Urobilinogen 1 mg/dL (Negative) H 02/09/23 22:06 Ur Leukocyte Esterase Negative (Negative) 02/09/23 22:06 Urine RBC 5-10 /hpf (0-2) H 02/09/23 22:06 Urine WBC 0-4 /hpf (0-5) H 02/09/23 22:06 Ur Squamous Epith Cells None /hpf (0-5) 02/09/23 22:06 Ur Transition Epith Cell 0-4 /hpf 02/09/23 22:06 Amorphous Sediment Not Reportable 02/09/23 22:06 Urine Bacteria Trace /hpf (NONE) 02/09/23 22:06 Urine Mucus 2+ /hpf 02/09/23 22:06 All radiology interpretation(s) finalized by discharge Discharge Plan Discharge Patient Disposition: Admitted As Inpatient Admit Provider: Leeroy Ramon Clinical Impression: Congestive heart failure, Status cardiac pacemaker, Elevated LFTs Condition: Stable Coding Level of Care Code 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
[2023-02-09 23:15] LABS: Add Urine Microscopic? YES; Bilirubin Urine Neg (Negative); Blood Urine 2+ (Negative); Glucose Urine UA Norm (Normal); Ketones Urine Negative (Negative); Leukocyte Esterase Urine Negative (Negative); Nitrate Urine Negative (Negative); Protein Urine Neg (Negative); Urine Appearance Clear (CLEAR); Urine Color Light yellow (Yellow); Urobilinogen Urine 1 mg/dL (Negative); pH Urine 5 (5-7)
[2023-02-09 23:16] LABS: Add Urine Culture? No; Bacteria Urine TRACE /hpf; Mucus Urine 2+ /hpf; Transitional Epi Cells Urine 0-4 /hpf; WBC Urine 0-4 /hpf (0-5)
[2023-02-09 23:19] LABS: INR 1.75 (0.8-1.2)
[2023-02-09 23:25] LABS: Creatine Phosphokinase 578 U/L (39-308)
[2023-02-09] MEDS: FUROsemide 10 mg/mL SDV 4mL 40 MG IVP (23:35)
[2023-02-09 23:37] LABS: D Dimer >= 20.00 ug/mLFEU (0-0.59)
[2023-02-09] MEDS: iohexol 350 mg/mL 500 mL Btl (per mL) IV (23:39)
[2023-02-09 23:47] LABS: Fibrinogen 155 mg/dL (174-498)
--- NOTE | 2023-02-09 23:48 | P.HP_ITS ---
Providers/Chief Complaint Primary Care Provider: Daniele Clarke DO Chief Complaint: SOB, swelling in hands and face History of Present Illness Pleasant 82-year-old gentleman with history of metastatic prostate cancer on Lupron, abiraterone, denosumab, lately with decreased functional status, SSS, atrial fibrillation, status post pacemaker, declined anticoagulation, on aspirin, HLD, HTN, Alzheimer's disease presented due to progressive shortness of breath, lower extremity edema, in ER noted newly requiring 2 L nasal cannula oxygen, found in fluid overload with new congestive heart failure, NT-proBNP 15,717. Baseline troponin 35, 2-hour troponin 33.2. Additionally noted new transaminitis, AST 228, ALT 178, alk phos 356. Hyponatremia sodium 126. Mild leukocytosis 11.8, but with neutrophilia, 1% bands, 3% myelocytes, 2% m etamyelocytes and with new thrombocytopenia, platelets 91. Chronic anemia hemoglobin at 10. INR 1.75 Chest x-ray with hyperinflation. UA with 5-10 RBC, 0-4 WBC, negative nitrate, trace bacteria. Review of Systems Const: Denies: fever(s), chills, body aches or malaise ENMT: Denies: throat pain Card: Denies: chest pain, edema, pre-syncope or dyspnea on exertion Resp: Reports: non-productive cough; Denies: dyspnea, productive cough, change in phlegm color or hemoptysis GI: Denies: abdominal pain, nausea, vomiting, diarrhea, constipation, hematochezia or melena : Denies: flank pain, difficulty urinating, urinary frequency or hematuria Musc: Denies: back pain, joint swelling or joint redness Skin/Breast: Denies: rash or new lesions Neuro: Denies: headache(s), numbness in extremities, weakness in extremities, dizziness, confusion or seizure-like activity Medications/Allergies Home Medications Medication Instructions Recorded Confirmed Last Taken Type fluoxetine 20 mg capsule (Prozac) 20 mg PO DAILY 05/21/19 01/27/23 Unknown History meloxicam 7.5 mg tablet (Mobic) 7.5 mg PO DAILY 05/21/19 01/27/23 Unknown History omeprazole 40 mg capsule,delayed 40 mg PO DAILY 05/21/19 01/27/23 Unknown His tory release simvastatin 20 mg tablet 20 mg PO DAILY 05/21/19 01/27/23 Unknown History aspirin 81 mg tablet,delayed 81 mg PO DAILY 12/05/19 01/27/23 Unknown History release (Adult Low Dose Aspirin) oxycodone-acetaminophen 5 mg-325 1 tab PO ONCE PRN pain 1 day #1 tab 03/10/22 01/27/23 Unknown Rx mg tablet (Percocet) acetaminophen 500 mg capsule 500 mg PO DAILY PRN 03/25/22 01/27/23 Unknown History montelukast 10 mg tablet 10 mg PO DAILY PRN 03/25/22 01/27/23 Unknown History (Singulair) sulfamethoxazole 800 1 tab PO BID #60 tabs 04/21/22 01/27/23 Unknown Rx mg-trimethoprim 160 mg tablet tamsulosin 0.4 mg capsule 0.4 mg PO BID PRN 08/02/22 01/27/23 Unknown History ascorbic acid (vitamin C) 500 mg 500 mg PO DAILY 08/25/22 01/27/23 Unknown History capsule,extended release (Vitamin C) cholecalciferol (vitamin D3) 10 10 mcg PO DAILY 08/25/22 01/27/23 Unknown History mcg (400 unit) capsule metoprolol succinate 50 mg 75 mg PO DAILY #135 tabs 10/04/22 01/27/23 Unknown Rx tablet,extended release 24 hr prednisone 5 mg tablet 5 mg PO BID #60 tabs 10/11/22 01/27/23 Unknown Rx escitalopram oxalate 5 mg tablet 5 mg PO DAILY #30 tabs 01/12/23 01/27/23 Unknown Rx abiraterone 250 mg tablet See Rx Instructions .Route 01/19/23 01/27/23 Unknown Rx .COMPLEX #28 tabs Allergies Allergy/AdvReac Type Severity Reaction Status Date / Time grass pollen Allergy Mild ALGY-Conges Verified 01/27/23 13:43 leobardo PFSH Acute PFSH: Medical History Alzheimer disease Dizziness Dyslipidemia Elevated PSA HTN (hypertension) Migraine SSS (sick sinus syndrome) Surgical History Hx of shoulder surgery S/P appendectomy S/P cataract extraction S/P hip replacement Status cardiac pacemaker Family History Father , AT AGE 80 Stroke Mother , AT AGE 26 Bowel obstruction Other CAD (coronary artery disease) Cancer Social History Smoking and tobacco/nicotine status: current every day tobacco/nicotine user cigarettes Packs smoked per day: 1 Years cigarettes smoked: 70 Alcohol intake: never Substance/Drug Use: never Lives independently: Yes Marital status: / service: Yes branch: [employer] Current occupational status: retired Previous occupational history: [employer] Current gender identity: Male Vitals/I&O/Wt Last Vital Signs Temp 97.7 F 02/09/23 20:48 Pulse 93 02/09/23 21:19 Resp 17 02/09/23 21:19 BP 139/77 02/09/23 21:19 Pulse Ox 98 02/09/23 21:19 O2 Del Method Nasal Cannula 02/09/23 21:19 O2 Flow Rate 3 02/09/23 21:19 Weight last 48 hrs Weight 78.925 kg Physical Exam Narrative: Family including daughter at bedside. Const: COMMON NORMALS: patient oriented x3 and alert GENERAL APPEARANCE: cooperative ORIENTATION/CONSCIOUSNESS: Yes awake HENMT: COMMON NORMALS: oropharynx normal Neck/C-Spine: COMMON NORMALS: no JVD Resp: AUSCULTATION: diminished lung sounds Cardio: COMMON NORMALS: no JVD, regular rhythm, S1 normal heart sound present, S2 normal heart sound present and No murmurs present (Cardio) RHYTHM: regular rhythm HEART SOUNDS: S1 normal heart sound present and S2 normal heart sound present GI: COMMON NORMALS: Normal to inspection, nondistended, normoactive bowel sounds present, Soft to palpation and non-tender PALPATION: Yes Soft to palpation Extremity: COMMON NORMALS: no joint enlargement GENERAL: Yes edema (3+ BL LE) Neuro: COMMON NORMALS: patient oriented x3 and moves all extremities SENSORIUM/ORIENTATION: Yes alert Skin: COMMON NORMALS: no rashes or lesions noted GENERAL SKIN EXAM: no rashes or lesions noted Urinary Catheter Management: Amaro: Cath Placed During This Visit: yes Urinary Catheter Date of Insertion: 02/09/23 Urinary Catheter Time of Insertion: 23:04 Data 02/09/23 21:00 02/09/23 21:00 A&P Assessment and plan (1) Congestive heart failure: Appears to have new onset severe decompensated congestive heart failure with lower extremity edema, dyspnea, suspected congestive hepatopathy. Type unknown. Suspect component of right heart failure. Complicated by new onset hypoxia requiring 2 L nasal cannula oxygen. Not normally on oxygen. Pending further assessment. No history of CHF. Discussed with ER provider, ER documentation reviewed. Received Lasix, continue diuretics as per discussion, monitor YASMINE, weights. At risk of electro abnormality, monitor chemistry and on telemetry with risk of arrhythmia. Monitor renal function, at risk of LASHELL. Assess TTE. Complete troponin, EKG series. He has been free of chest pain or pressure. Oxygen support, 3 L nasal cannula. Wean down as tolerating. Discussed with him and family. Consider uncommon but possible adverse effect with Lupron causing congestive heart failure, consider uncommon but possible adverse effect with abiraterone causing CHF, will need to be considered at follow-up with oncology. (2) Elevated LFTs: Reviewed liver parameters, INR. Suspect congestive hepatopathy with decompens ated CHF. Possible right heart failure. Hold statin. He does report he has had dry cough. Assess respiratory viral panel. (3) Thrombocytopenia: New thrombocytopenia: Platelets down to 91,000. Unclear cause. Unclear if may be related to portal hypertension, congestive hepatopathy. DIC profile has been sent. Noted elevated D-dimer. Fibrinogen borderline low 155. Additionally noted some neutrophilia, bands 1%, myelocytes 3%, metamyelocytes 2%. Does not appear to have obvious infection, although he is coughing, requested respiratory viral panel. Chest x-ray not suggestive of focal pneumonia. UA has been requested. We will request peripheral smear. Follow-up CBC. Prophylactic Lovenox for now. Monitor platelet level. Head CTA, technically somewhat difficult study but on my interpretation no large PE. Lower extremity swelling, VTE not ruled out at this time. Check lower extremity duplex. (4) Hyponatremia: Hypervolemic hyponatremia, reviewed chemistry, sodium 126. Diuresis as above. Reassess sodium. (5) Goals of care, counseling/discussion: With metastatic cancer, recently with decline in functional status, but in case of cardiopulmonary arrest wants to have attempted resuscitation, CPR, intubation if needed. Plan Mild rhabdomyolysis: Follow-up CK. Hold statin for now. Metastatic prostate cancer SSS, status post pacemaker Atrial fibrillation: Declined anticoagulation, on aspirin HTN: Monitor blood pressures HLD: With rhabdomyolysis, transaminitis, hold statin for now. Reassess CK, reassess liver parameters. Alzheimer's disease Requested to confirm home medications, please reconcile once available. Attestations Medical Necessity Statement*: Admission of over 2 midnights anticipated for assessment management of new decompensated congestive heart failure, new thrombocytopenia, hyponatremia, transaminitis, rhabdomyolysis in a gentleman with underlying metastatic cancer, additional comorbidities as above. Diagnoses Congestive heart failure I50.9 Elevated LFTs R79.89 Thrombocytopenia D69.6 Hyponatremia E87.1 Goals of care, counseling/discussion Z71.89
[2023-02-10] VITALS (12 sets, daily range): BP systolic 112–149; BP diastolic 61–93; PULSE 52–98; RESP 16–37; TEMP 36.3–36.9; O2SAT 91–98
[2023-02-10 01:48] LABS: Adenovirus Not Detected (NOT DETECT); Chlamydia Pneumoniae Not Detected (NOT DETECT); Coronavirus 229E,HKU1,NL63,OC4 Not Detected (NOT DETECT); Human Metapneumovirus Not Detected (NOT DETECT); Human Rhinovirus/Enterovirus Not Detected (NOT DETECT); Influenza A Not Detected (NOT DETECT); Influenza A H1 Not Detected (NOT DETECT); Influenza A H1-2009 Not Detected (NOT DETECT); Influenza A H3 Not Detected (NOT DETECT); Influenza B Not Detected (NOT DETECT); Mycoplasma Pneumoniae Not Detected (NOT DETECT); Parainfluenza Virus Type 1 Not Detected (NOT DETECT); Parainfluenza Virus Type 2 Not Detected (NOT DETECT); Parainfluenza Virus Type 3 Not Detected (NOT DETECT); Parainfluenza Virus Type 4 Not Detected (NOT DETECT); Respiratory Syncytial Virus A Not Detected (NOT DETECT); Respiratory Syncytial Virus B Not Detected (NOT DETECT); SARS-COV-2 Not Detected (NOT DETECT)
--- NOTE | 2023-02-10 01:49 | USCV_ITS ---
Charlie Regalado Age: 82 Gender: M : 1940 Exam Date: 02/10/2023 02:24 Ordering Phys: Leeroy Ramon MD Technologist: JOSE Exam Location: [facility] [place] Indication: prostate cancer with mets, SOB, JONES, s/p pacer 2016. BP: 147 / 84 HR: 75 Rhythm: Atrial fibrillation Technical Quality: Adequate MEASUREMENTS (Male / Female) Normal Values 2D ECHO LV Diastolic Diameter PLAX 5.1 cm 4.2 - 5.9 / 3.9 - 5.3 cm LV Systolic Diameter PLAX 3.9 cm IVS Diastolic Thickness 1.3 cm 0.6 - 1.0 / 0.6 - 0.9 cm IVS Systolic Thickness 1.9 cm LVPW Diastolic Thickness 1.3 cm 0.6 - 1.0 / 0.6 - 0.9 cm LVPW Systolic Thickness 1.7 cm LVOT Diameter 2.0 cm LV Ejection Fraction 2D Teich 45.4 % LV Ejection Fraction MOD 2C 41.9 % LV Ejection Fraction 2C AL 41.1 % LA Diameter 4.6 cm LA Width 4.8 cm LA Height 5.3 cm RA Width 4.6 cm RA Height 5.9 cm Aorta at Sinotubular Diameter 2.8 cm IVC Diameter 2.7 cm M-MODE Aortic Annulus Diameter 3.5 cm LA Ao Ratio MM 1.5 MV E Point Septal Separation 1.5 cm DOPPLER AV Peak Velocity 116.0 cm/s LVOT Peak Velocity 73.0 cm/s AV Area Cont Eq vti 2.0 cm squared AV Area Cont Eq pk 1.9 cm squared MV Area PHT 7.6 cm squared MV E' Velocity 77.0 cm/s Mitral E to MV E' Ratio 15.1 Mitral E to LV E' Lateral Ratio 9.5 Mitral E to LV E' Septal Ratio 37.5 TR Peak Velocity 301.3 cm/s TR Peak Gradient 36.3 mmHg TV Peak E Velocity 72.0 cm/s Right Atrial Pressure 10.0 mmHg Pulmonary Artery Systolic Pressu 46.3 mmHg PV Peak Velocity 89.0 cm/s RV Acceleration Time 0.1 s RV Ejection Time 0.3 s RV AcT/ET 0.2 FINDINGS Left Ventricle Normal left ventricular cavity size. Normal left ventricular wall thickness. Moderately decreased left ventricular systolic function. Left ventricular ejection fraction is estimated at 30-35 % visually and 41% by modified biplane method. Global left ventricular hypokinesis. Abnormal septal motion consistent with pacemaker. Abnormal diastolic function. Right Ventricle Normal right ventricular size and systolic function. Right ventricular systolic pressure 52 mmHg. Catheter/pacemaker wire visualized in the right ventricle. Right Atrium Normal right atrial size. Catheter/pacemaker wire in the right atrial cavity. Left Atrium Moderately increased left atrial size. Mitral Valve Mild mitral annular calcification. Mildly thickened mitral valve. No mitral valve stenosis. Mild mitral valve regurgitation. Aortic Valve Thickened trileaflet aortic valve. No aortic valve stenosis. No aortic valve regurgitation. Tricuspid Valve Structurally normal tricuspid valve. No tricuspid valve stenosis. Mild to moderate tricuspid valve regurgitation. Pulmonic Valve Pulmonic valve not well visualized. Pericardium No pericardial effusion. Aorta Normal size aortic root and proximal ascending aorta. IVC Normal IVC dimension with no respiratory change of the inferior vena cava. CONCLUSIONS 1. Normal left ventricular cavity size. Moderately decreased left ventricular systolic function. Left ventricular ejection fraction is estimated at 30-35 % visually and 41% by modified biplane method. Global left ventricular hypokinesis. 2. Mild mitral valve regurgitation. 3. Mild to moderate tricuspid valve regurgitation. 4. When compared to study dated 05/30/2015, left regular systolic function seems to have decreased. Radha Gregory MD (Electronically Signed) Final Date: 10 February 2023 13:05 S
[2023-02-10] MEDS: enoxaparin 30 mg/0.3 mL Syringe SUBCUT (01:56)
[2023-02-10] MEDS: acetaminophen 325 mg Tablet 650 MG PO (01:57)
--- NOTE | 2023-02-10 02:56 | ECG_ITS ---
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 Measurements Intervals [place] Rate: 62 P: 0 AL: 0 QRS: 155 QRSD: 160 T: 33 QT: 441 QTc: 450 Interpretive Statements ELECTRONIC VENTRICULAR PACEMAKER ABNORMAL RHYTHM ECG Compared to ECG 02/09/2023 22:20:58 No significant changes Electronically Signed On 02-10-2023 11:33:37 CDT by Radha Gregory M.D. [id number]
[2023-02-10 03:38] LABS: Troponin 5 6HR 39.08 ng/L (0-15)
[2023-02-10 03:40] LABS: Troponin 5 6HR Delta 4.08 ng/L (0-12)
[2023-02-10 05:01] LABS: Reflex FDPQ test REFLEX FDP QUEST TES
[2023-02-10 05:16] LABS: INR 1.83 (0.8-1.2)
[2023-02-10] MEDS: FUROsemide 10 mg/mL SDV 4mL 40 MG IVP ×2 (05:16→17:21)
[2023-02-10 05:17] LABS: Partial Thromboplastin Time 40.5 SECONDS (23.9-36.7)
[2023-02-10 05:22] LABS: Fibrinogen 153 mg/dL (174-498)
[2023-02-10 05:34] LABS: D Dimer >= 20.00 ug/mLFEU (0-0.59)
[2023-02-10 07:30] LABS: LAB Peripheral Smear Sent for Review
--- NOTE | 2023-02-10 08:32 | US_ITS ---
WS: [id number] RIGHT UPPER QUADRANT ULTRASOUND HISTORY: RIGHT upper quadrant pain. COMPARISON: None available. Liver: 21.6 cm in length. Enlarged liver. No mass. No bile duct dilatation. Portal Vein: Normal hepatopetal flow with monophasic waveform. Gallbladder: Abnormal gallbladder. Gallbladder does not measure greater than 4 cm in diameter. There is diffuse wall thickening with no stones identified. There is fluid around the gallbladder consisten t with pericholecystic fluid infiltrates the soft tissues adjacent to the liver. Gallbladder was also abnormal on the CT from 02/09/2023. CBD: 0.4 cm Pancreas: Portions of the head and tail are obscured. The body is negative. Right kidney: 11.8 cm in length. Normal size and echogenicity. No hydronephrosis or mass. Aorta and IVC: Unremarkable abdominal aorta and IVC. No ascites. IMPRESSION: 1. No cholelithiasis. 2. Diffuse gallbladder wall thickening with adjacent pericholecystic fluid. This may be secondary to a calculus acute cholecystitis. Gallbladder wall thickening and pericholecystic fluid also can be rel ated to hepatocellular disease. Additional causes of pericholecystic fluid include cirrhosis, congest tammy heart failure and ascites. 3. Small RIGHT pleural effusion. 4. Moderate hepatomegaly.
[2023-02-10] MEDS: aspirin 81 mg EC Tablet PO (08:33)
[2023-02-10] MEDS: metoprolol succinate ER (24 HR) 25 mg Tablet 75 MG PO (08:33)
[2023-02-10] MEDS: pantoprazole DR 40 mg Tablet PO ×2 (08:33→17:22)
[2023-02-10 09:38] LABS: C Reactive Protein 53.8 mg/L (0.0-4.9)
[2023-02-10 09:45] LABS: Procalcitonin 0.14 ng/mL (0-0.5)
[2023-02-10] MEDS: metroNIDAZOLE IV 500 MG/100 ML PREMIX 100 MG IV ×2 (14:42→21:13)
--- NOTE | 2023-02-10 15:39 | XR_ITS ---
WS: [id number] Exam: XR chest 1V portable [id number] Date/Time of Exam: 02/10/2023 3:45 PM Reason For Exam: increased SOB Comparison 02/09/2023. The lungs are mildly hyperinflated. No consolidating infiltrates are seen. Mild cardiac enlargement. No obvious pleural effusions are noted. A permanent cardiac pacer superimposes the LEFT chest. Bony s tructures are intact. DJD of the visualized shoulders. IMPRESSION: 1. Mild cardiac enlargement and pulmonary hyperinflation. No acute process noted.
--- NOTE | 2023-02-10 15:40 | ECG_ITS ---
[facility] Test Date: 2023-02-10 Pat Name: Charlie Regalado Department: Room: 106 Gender: Male Evaluation Advisor: : 1940 Requested By: Eulalio Mata Order Number: [id number] Cinthia MD: Radha Gregory M.D. Measurements Intervals [place] Rate: 59 P: 158 CT: 177 QRS: 244 QRSD: 161 T: 88 QT: 447 QTc: 446 Interpretive Statements ATRIAL FIBRILLATION ELECTRONIC VENTRICULAR PACEMAKER ABNORMAL RHYTHM ECG Compared to ECG 02/10/2023 03:23:09 No significant changes Electronically Signed On 02-10-2023 16:39:02 CDT by Radha Gregory M.D. [id number]
[2023-02-10 16:05] LABS: ABG PCO2 27.5 mmHg (35-45); Alveolar-Arterial Oxygen Gradi 4.8 mmHg (5-10); Arterial Blood Gas Hematocrit 31.5 % (42-52); Base Excess ABG -0.8 mmol/L (-2.0-2.0); Blood Gas Allen Test Pos; Blood Gas Sample Site Radial, right; Blood Gas Sample Type Arterial; Carboxyhemoglobin 0.8 %THgb (0.4-20.1); HCO3 ABG 21.5 mmol/L (22-26); Ionized Calcium Level - ABG 1.1 mmol/L (1.1-1.4); Methemoglobin 0.6 % (0.4-1.5); Oxygen Device NC; Oxygen Saturation ABG 95.4; PO2 ABG 77.3 mmHg (80.0-100.0); Potassium Level - ABG 3.8 mmol/L (3.5-5.0); Total Hemoglobin 10.3 g/dL (14-18)
[2023-02-10] MEDS: ciprofloxacin 400 MG/200 ML PREMIX 200 MG IV (16:12)
--- NOTE | 2023-02-10 16:21 | PM.PN ---
Subjective Subjective: Patient was seen this morning, he is alert to person, to place, not to time, he denies any shortness of breath, he tells me that his lower extremity edema has significantly improved, he feels a lot better, I went over his test results his venous ultrasound negative for DVT CT angiogram of the chest negative for PE, I think a lot of his symptoms are related to heart failure, particularly he has features of right-sided heart failure, given his elevated LFTs I will do a right upper quadrant ultrasound as he does complain of right upper quadrant pain, denies any fevers, no chills, I was advised by nursing staff that in the afternoon patient was more short of breath, tachypnea, patient's daughter is at bedside, patient was reexamined, his respiratory rate is between 12-14, does have crackles on lung florence, normotensive, he is alert to person, to place, he follows commands, repeat ABG shows patient tachypneic with a PCO2 of 27.5, and PO2 of 77.3, on 4 L, he continues to diurese well, patient's daughter is at bedside, I discussed echocardiogram findings, his EF is down to 35%, etiology is unclear, it could be a cardiac event, it could be possibly he is chemotherapy agents, will have to continue to diurese him, will follow his troponin series, and monitor him, and consider outpatient follow-up with cardiology for consideration angiogram, or stress testing based on his clinical progress or he can do as inpatient depending on his clinical progress, in terms of his shortness of breath, I think is likely secondary to pulm edema, will continue to diurese, however I am worried with his sodium, being 126, we have to recheck it, his creatinine has been reasonable, we will have to monitor his creatinine closely, he does have radiographic evidence of gallbladder wall thickening, this could be acute cholecystitis have started him on antibiotics, Cipro and Flagyl but it could be a right-sided heart failure and hepatic congestion, will watch him closely if his respiratory status worsens we might have to move him to ICU for closer monitoring, will start him on BiPAP tonight, patient and daughter voiced understanding, all questions answered, agreed to proceed Vitals/I&O/Wt Last Vital Signs Temp 97.5 F L 02/10/23 11:28 Pulse 93 02/10/23 11:28 Resp 26 H 02/10/23 11:28 BP 120/66 02/10/23 11:28 Pulse Ox 92 02/10/23 11:28 O2 Del Method Nasal Cannula 02/10/23 11:28 O2 Flow Rate 4 02/10/23 08:00 02/10/23 02/10/23 02/10/23 06:59 14:59 22:59 Intake Total 60 / 60 600 / 600 100 / 700 Output Total 1850 / 1850 Balance -1790 / -1790 600 / 600 100 / 700 Weight last 48 hrs Weight 78.335 kg Weight 78.925 kg Physical Exam Const: COMMON NORMALS: no acute distress and patient oriented x3 Resp: COMMON NORMALS: normal respiratory effort, No retractions and No use of accessory muscles AUSCULTATION: crackles and wheezes Cardio: COMMON NORMALS: regular rate, regular rhythm, S1 normal heart sound present and S2 normal heart sound present RATE: regular rate RHYTHM: regular rhythm HEART SOUNDS: S1 normal heart sound present and S2 normal heart sound present GI: COMMON NORMALS: Normal to inspection, nondistended, normoactive bowel sounds present and non-tender Extremity: COMMON NORMALS: no pedal edema Neuro: COMMON NORMALS: patient oriented x3 Psych: COMMON NORMALS: mental status grossly normal Urinary Catheter Management: Amaro: Cath Placed During This Visit: yes Reason for Continuing Indwelling Catheter: Accurate Measurement of Urinary Output in Critically Ill Patients Urinary Catheter Date of Insertion: 02/09/23 Urinary Catheter Time of Insertion: 23:04 Data 02/09/23 21:00 02/09/23 21:00 A&P Assessment and plan (1) Hyponatremia: (2) Thrombocytopenia: (3) Elevated LFTs: (4) Status cardiac pacemaker: (5) HTN (hypertension): (6) Dyslipidemia: (7) SSS (sick sinus syndrome): (8) Prostate cancer: (9) Systolic CHF, acute: (10) Right-sided heart failure: (11) Cholecystitis without calculus: (12) Bilateral pleural effusion: (13) Emphysema of lung: Plan Acute hypoxic respiratory failure -Secondary to pulm edema, fluid overload, systolic CHF -Possible component of lung emphysema Plan -Monitor in cardiac stepdown unit -Currently on 4 L, will consider BiPAP schedule during the night -Continue diuresis, monitor serum sodium, creatinine -We will get 40 mg IV push Lasix tonight -1 dose of Solu-Medrol -Monitor respiratory status closely -DuoNeb, budesonide -Full code -Lovenox for DVT prophylaxis Systolic CHF, acute exacerbation CONCLUSIONS ?1. Normal left ventricular cavity size. Moderately decreased ?left ventricular systolic function.? Left ventricular ejection ?fraction is estimated at 30-35 % visually and 41% by modified ?biplane method. Global left ventricular hypokinesis. ?2. Mild mitral valve regurgitation. ?3. Mild to moderate tricuspid valve regurgitation. ?4. When compared to study dated 05/30/2015, left regular ?systolic function seems to have decreased. Plan -Diuresis as above -Aspirin, statin -We will repeat troponin series -We will consider heparin drip for anticoagulant therapy -Etiology cardiac versus stress-induced cardiomyopathy, -Denies chest pain Right-sided heart failure -Possibly secondary to underlying emphysema -CT angiogram negative for pulm embolism -We will continue diuresis Acalculous cholecystitis 1. No cholelithiasis. 2. Diffuse gallbladder wall thickening with adjacent pericholecystic fluid. This may be secondary to a calculus acute cholecystitis. Gallbladder wall thickening and pericholecystic fluid also can be related to hepatocellular disease. Additional causes of pericholecystic fluid include cirrhosis, congestive heart failure and ascites. 3. Small RIGHT pleural effusion. 4. Moderate hepatomegaly. 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 Metastatic prostate cancer SSS, status post pacemaker Atrial fibrillation: Declined anticoagulation, on aspirin HTN: Monitor blood pressures HLD: Alzheimer's disease Requested to confirm home medications, please reconcile once available. Patient was seen this morning, he is alert to person, to place, not to time, he denies any shortness of breath, he tells me that his lower extremity edema has significantly improved, he feels a lot better, I went over his test results his venous ultrasound negative for DVT CT angiogram of the chest negative for PE, I think a lot of his symptoms are related to heart failure, particularly he has features of right-sided heart failure, given his elevated LFTs I will do a right upper quadrant ultrasound as he does complain of right upper quadrant pain, denies any fevers, no chills, I was advised by nursing staff that in the afternoon patient was more short of breath, tachypnea, patient's daughter is at bedside, patient was reexamined, his respiratory rate is between 12-14, does have crackles on lung florence, normotensive, he is alert to person, to place, he follows commands, repeat ABG shows patient tachypneic with a PCO2 of 27.5, and PO2 of 77.3, on 4 L, he continues to diurese well, patient's daughter is at bedside, I discussed echocardiogram findings, his EF is down to 35%, etiology is unclear, it could be a cardiac event, it could be possibly he is chemotherapy agents, will have to continue to diurese him, will follow his troponin series, and monitor him, and consider outpatient follow-up with cardiology for consideration angiogram, or stress testing based on his clinical progress or he can do as inpatient depending on his clinical progress, in terms of his shortness of breath, I think is likely secondary to pulm edema, will continue to diurese, however I am worried with his sodium, being 126, we have to recheck it, his creatinine has been reasonable, we will have to monitor his creatinine closely, he does have radiographic evidence of gallbladder wall thickening, this could be acute cholecystitis have started him on antibiotics, Cipro and Flagyl but it could be a right-sided heart failure and hepatic congestion, will watch him closely if his respiratory status worsens we might have to move him to ICU for closer monitoring, will start him on BiPAP tonight, patient and daughter voiced understanding, all questions answered, agreed to proceed Attestations Medical Necessity Statement*: Patient requires hospitalization, inpatient, greater than 2 minutes, for acute hypoxic respiratory failure, systolic CHF exacerbation, right-sided heart failure, gallbladder wall thickening, possible cholecystitis, NSTEMI, rhabdomyolysis, transaminitis, Diagnoses Hyponatremia E87.1 Thrombocytopenia D69.6 Elevated LFTs R79.89 Status cardiac pacemaker Z95.0 HTN (hypertension) I10 Dyslipidemia E78.5 SSS (sick sinus syndrome) I49.5 Prostate cancer C61 Systolic CHF, acute I50.21 Right-sided heart failure I50.810 Cholecystitis without calculus K81.9 Bilateral pleural effusion J90 Emphysema of lung J43.9
[2023-02-10 16:31] LABS: Anion Gap 16.9 (5-19); Blood Urea Nitrogen 25 mg/dL (8-23); Carbon Dioxide 23 mmol/L (22-29); Chloride 92 mmol/L (98-107); Creatinine Clr Calc Pharmacy 60.5246; Glucose 107 mg/dL (65-115); Osmolality Calculated 271 mOsm/kg (285-295); Potassium 3.9 mmol/L (3.5-5.1); Sodium 128 mmol/L (136-145)
[2023-02-10 16:34] LABS: Troponin(5th) Baseline 61 ng/L (0-15)
[2023-02-10] MEDS: methylPREDNISolone sod succ 125 MG in water for injection-sterile 2 ML 24 MG IVP (17:21)
[2023-02-10] MEDS: predniSONE 5 mg Tablet PO (17:22)
[2023-02-10] MEDS: potassium chloride ER 20 mEq Tablet PO (17:22)
[2023-02-10] MEDS: metOLazone 5 MG Tablet 2.5 MG PO (17:22)
[2023-02-10] MEDS: heparin drip 25,000 UNIT/500 ML PREMIX 22 UNIT IV (18:38)
--- NOTE | 2023-02-10 18:43 | PC.NURSE ---
Patient has became increasingly more lethargic and drowsy through out the day. There has been some intermittent confusion. Patient had an event at 1530 where he became tachypenic and his oxygen dropped below normal limits. Physician and respiratory were notified, physician orders for abg, ekg, chest xray were placed. Patient is stable. Son is currently at bedside.
[2023-02-10 18:58] LABS: Troponin 5 2HR 63.73 ng/L (0-15)
[2023-02-10 19:00] LABS: Troponin 5 2HR Delta 2.73 ABS# (0-10)
[2023-02-10 19:34] LABS: Creatine Phosphokinase 360 U/L (39-308)
--- NOTE | 2023-02-10 19:47 | PC.NURSE ---
Patient has increasing restlessness. Son at bedside. Informed Dr Mata and received onetime order for Vistaril 25mg PO. RBVO
[2023-02-10] MEDS: hyDROXYzine 25 mg Capsule PO (21:14)
--- NOTE | 2023-02-10 21:30 | ECG_ITS ---
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 Measurements Intervals [place] Rate: 88 P: 98 [place]: 211 QRS: 180 QRSD: 174 T: 29 QT: 452 QTc: 549 Interpretive Statements ELECTRONIC VENTRICULAR PACEMAKER ABNORMAL RHYTHM ECG Compared to ECG 02/10/2023 15:49:36 Atrial fibrillation no longer present Electronically Signed On 02-11-2023 7:11:55 CDT by Radha Gregory M.D. [id number]
[2023-02-10 22:24] LABS: Troponin 5 6HR 54.35 ng/L (0-15)
[2023-02-10 22:32] LABS: Troponin 5 6HR Delta -6.65 ng/L (0-12)
[2023-02-11] VITALS (13 sets, daily range): BP systolic 114–151; BP diastolic 54–86; PULSE 60–82; RESP 13–32; TEMP 36.4–37.2; O2SAT 84–97
[2023-02-11] MEDS: ciprofloxacin 400 MG/200 ML PREMIX 200 MG IV ×2 (01:42→15:20)
[2023-02-11 01:45] LABS: Mean Corpuscular HGB Conc 32.8 g/dL (30-55); Mean Corpuscular Hemoglobin 30.5 pg (27-33); Mean Corpuscular Volume 93.2 fl (82-101); Mean Platelet Volume 11.8 fL (7.4-10.4); Platelet Count 74 10^3/cmm (157-399); Red Blood Count 3.11 10^6/uL (3.85-5.65); Red Cell Distribution Width 15.6 % (12.1-15.1); White Blood Count 13.07 10^3/uL (3.29-11.43)
[2023-02-11 02:05] LABS: Alanine Aminotransferase 179 U/L (0-41); Albumin Level 3.5 g/dL (3.5-5.2); Alkaline Phosphatase 417 U/L (40-130); Anion Gap 14.9 (5-19); Aspartate Amino Transferase 270 U/L (0-40); Blood Urea Nitrogen 28 mg/dL (8-23); Calcium 7.9 mg/dL (8.5-10.5); Carbon Dioxide 24 mmol/L (22-29); Chloride 94 mmol/L (98-107); Creatinine Clr Calc Pharmacy 60.5246; Globulin 2.3 g/dL (1.3-4.6); Glucose 144 mg/dL (65-115); Osmolality Calculated 276 mOsm/kg (285-295); Potassium 3.9 mmol/L (3.5-5.1); Sodium 129 mmol/L (136-145); Total Bilirubin 0.8 mg/dL (0.15-1.2); Total Protein 5.8 g/dL (6.6-8.7)
[2023-02-11 02:07] LABS: Partial Thromboplastin Time 119.9 SECONDS (23.9-36.7)
[2023-02-11 02:14] LABS: Absolute Segmented Neutrophil 11.2 10/cmm (1.6-7.1); Lymphocytes 9 %; Monocytes Absolute 0.3 10^3/cmm (0.1-0.6); Segmented Neutrophils 86 %; Slide Review Slide Review Perform; Total Cells Counted 100 (0-100)
[2023-02-11 02:15] LABS: Absolute Eosinophils 0.1 10^3/cmm (0.0-0.7); Eosinophils 1 %; Platelet Estimate Decreased (Normal)
[2023-02-11 02:16] LABS: NT Pro B Type Natriuretic Pept 10091 pg/mL (0-450)
[2023-02-11 02:17] LABS: Creatine Phosphokinase 451 U/L (39-308)
[2023-02-11] MEDS: FUROsemide 10 mg/mL SDV 4mL 40 MG IVP ×2 (04:39→09:23)
[2023-02-11] MEDS: potassium chloride ER 20 mEq Tablet PO ×2 (04:39→09:23)
[2023-02-11 05:22] LABS: Reflex FDPQ test REFLEX FDP QUEST TES
[2023-02-11] MEDS: metroNIDAZOLE IV 500 MG/100 ML PREMIX 100 MG IV ×3 (05:34→22:36)
[2023-02-11 05:38] LABS: Fibrinogen 263 mg/dL (174-498); INR 1.78 (0.8-1.2)
[2023-02-11 05:47] LABS: Partial Thromboplastin Time 109.9 SECONDS (23.9-36.7)
[2023-02-11 05:55] LABS: D Dimer >= 20.00 ug/mLFEU (0-0.59)
[2023-02-11] MEDS: budesonide 0.5 mg/2 mL Neb INHALATION (08:22)
[2023-02-11] MEDS: ipratropium-albuterol 3 mL Neb INHALATION ×2 (08:22→11:13)
--- NOTE | 2023-02-11 08:44 | PC.CHAP ---
Pastoral Care Encounter/Spiritual Assessment Type of Contact [] Declined hog handler visit [] Patient/Family/Request visit [] Outpatient visit [] Follow-up visit [] Physician referral [] Code/Alert [x] Routine visit [] Staff referral [] Actively dying [] Patient sleeping [x] Family support [] [] Out of room [] Palliative care [] [] Receiving care in room [] Pre-surgical visit [] Trauma [] Long length of stay [] ICU visit [] Other: Relational/Emotional Strength [x] Patient feels connected with others/family/visitors/staff [] Distress [] Loneliness/isolation [] Abandonment Spirituality of Patient [x] Person of [place] [] Attends Yarsani of their [place] [x] Believes in Prayer [] Reads Bible or Evangelical materials [] There are Spiritual issues to be addressed 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 Interventions [x] Prayer [x] Active listening [] Non-anxious presence [x] Spiritual/emotional support [] Crisis/trauma care [] Spiritual counseling [] Bereavement support [] Provided bereavement packet [] Provided Bible/devotional materials [] Provided toy/stuffed animal, coloring book to patient or family member [] Provided Communion [] Anointing/[place] [] Salvation [x] Completed spiritual assessment [] Other: Impact on Illness or Injury [] Angry [] Fearful [] Anxious [] Often cries [] Exhaustion [] Unable to work [] Unable to attend restorationism [] Unable to walk/stand [] Unable to read [] Unable to drive [] Unable to eat/drink [] Unable to sleep [] Unable to be with family [] Patient intubated [] Other: Summary Time spent with patient 5 min
[2023-02-11 09:11] LABS: Partial Thromboplastin Time 141.2 SECONDS (23.9-36.7)
[2023-02-11] MEDS: metoprolol succinate ER (24 HR) 25 mg Tablet 75 MG PO (09:22)
[2023-02-11] MEDS: atorvastatin 40 mg Tablet 20 MG PO (09:23)
[2023-02-11] MEDS: predniSONE 5 mg Tablet PO ×2 (09:23→18:01)
[2023-02-11] MEDS: aspirin 81 mg EC Tablet PO (09:23)
[2023-02-11] MEDS: pantoprazole DR 40 mg Tablet PO ×2 (09:23→18:01)
[2023-02-11] MEDS: escitalopram 10 mg Tablet 5 MG PO (09:23)
[2023-02-11] MEDS: metOLazone 5 MG Tablet PO (09:23)
[2023-02-11 10:30] LABS: Platelet Count 69 10^3/cmm (157-399)
--- NOTE | 2023-02-11 11:03 | P.PN_ITS ---
Subjective Subjective: Patient was seen this morning, patient's daughter is at bedside he is much more alert and awake, does report minimal shortness of breath, but significantly improved compared to last night, his daughter is at bedside tells me that he looks much more comfortable, his edema has improved, we had a discussion about his echocardiogram results, it could be CAD versus stress-induced cardiomyopathy, potentially from his cancer medications, we will continue to hold, will reach out to oncology, Vitals/I&O/Wt Last Vital Signs Temp 97.6 F 02/11/23 07:36 Pulse 79 02/11/23 08:22 Resp 20 H 02/11/23 08:22 BP 117/63 02/11/23 07:36 Pulse Ox 96 02/11/23 08:22 O2 Del Method Nasal Cannula 02/11/23 08:22 O2 Flow Rate 2 02/11/23 08:22 02/10/23 02/11/23 02/11/23 22:59 06:59 14:59 Intake Total 402 / 1002 669.033 / 1671.033 602.683 / 602.683 Output Total 2500 / 2500 Balance 402 / 1002 -1830.967 / -828.967 602.683 / 602.683 Weight last 48 hrs Weight 74.072 kg Weight 78.335 kg Weight 78.925 kg Physical Exam Const: COMMON NORMALS: no acute distress and patient oriented x3 Resp: COMMON NORMALS: normal respiratory effort, No retractions and No use of accessory muscles AUSCULTATION: crackles Cardio: COMMON NORMALS: regular rate, regular rhythm, S1 normal heart sound p resent and S2 normal heart sound present RATE: regular rate RHYTHM: regular rhythm HEART SOUNDS: S1 normal heart sound present and S2 normal heart sound present GI: COMMON NORMALS: Normal to inspection, nondistended, normoactive bowel sounds present and non-tender Extremity: COMMON NORMALS: no pedal edema Neuro: COMMON NORMALS: patient oriented x3 Psych: COMMON NORMALS: mental status grossly normal Urinary Catheter Management: Amaro: Cath Placed During This Visit: yes Reason for Continuing Indwelling Catheter: Acute Urinary Retention or Obstruction Urinary Catheter Date of Insertion: 02/09/23 Urinary Catheter Time of Insertion: 23:04 Data 02/11/23 01:35 02/11/23 01:35 A&P Assessment and plan (1) Hyponatremia: (2) Thrombocytopenia: (3) Elevated LFTs: (4) Status cardiac pacemaker: (5) HTN (hypertension): (6) Dyslipidemia: (7) SSS (sick sinus syndrome): (8) Prostate cancer: (9) Systolic CHF, acute: (10) Right-sided heart failure: (11) Cholecystitis without calculus: (12) Bilateral pleural effusion: (13) Emphysema of lung: Plan Acute hypoxic respiratory failure -Secondary to pulm edema, fluid overload, systolic CHF -Possible component of lung emphysema Plan -Monitor in cardiac stepdown unit -Currently on 4 L, will consider BiPAP schedule during the night -Continue diuresis, monitor serum sodium, creatinine -We will get 40 mg IV push Lasix this morning, metolazone, klor con -s/p dose of Solu-Medrol -Monitor respiratory status closely -DuoNeb, budesonide -Full code -Lovenox for DVT prophylaxis Systolic CHF, acute exacerbation CONCLUSIONS ?1. Normal left ventricular cavity size. Moderately decreased ?left ventricular systolic function.? Left ventricular ejection ?fraction is estimated at 30-35 % visually and 41% by modified ?biplane method. Global left ventricular hypokinesis. ?2. Mild mitral valve regurgitation. ?3. Mild to moderate tricuspid valve regurgitation. ?4. When compared to study dated 05/30/2015, left regular ?systolic function seems to have decreased. Plan -Diuresis as above -Aspirin, statin -We will repeat troponin series -Heparin drip -Etiology cardiac versus stress-induced cardiomyopathy, Zytiga -Denies chest pain Right-sided heart failure -Possibly secondary to underlying emphysema -CT angiogram negative for pulm embolism -We will continue diuresis Acalculous cholecystitis 1. No cholelithiasis. 2. Diffuse gallbladder wall thickening with adjacent pericholecystic fluid. This may be secondary to a calculus acute cholecystitis. Gallbladder wall thickening and pericholecystic fluid also can be related to hepatocellular disease. Additional causes of pericholecystic fluid include cirrhosis, congestive heart failure and ascites. 3. Small RIGHT pleural effusion. 4. Moderate hepatomegaly. 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 Metastatic prostate cancer SSS, status post pacemaker Atrial fibrillation: Declined anticoagulation, on aspirin HTN: Monitor blood pressures HLD: Alzheimer's disease Requested to confirm home medications, please reconcile once available. Plan for today 1 dose of Lasix, 1 dose of metolazone, potassium, currently on heparin drip, discussed with patient, discussed with family, discussed with daughter, Attestations Medical Necessity Statement*: Patient requires hospitalization for CHF, requiring further diuresis, stress- induced cardiomyopathy versus Zytiga versus CAD, NSTEMI, on heparin drip, a calculus cholecystitis, on antibiotics Diagnoses Hyponatremia E87.1 Thrombocytopenia D69.6 Elevated LFTs R79.89 Status cardiac pacemaker Z95.0 HTN (hypertension) I10 Dyslipidemia E78.5 SSS (sick sinus syndrome) I49.5 Prostate cancer C61 Systolic CHF, acute I50.21 Right-sided heart failure I50.810 Cholecystitis without calculus K81.9 Bilateral pleural effusion J90 Emphysema of lung J43.9
--- NOTE | 2023-02-11 12:16 | PC.SOCIAL ---
Pg 2 IMM Explained to pt Pg 2 IMM. No questions voiced. Provided pt a copy. Initialed, dated, & timed a copy & placed in chart.
[2023-02-11 14:46] LABS: Partial Thromboplastin Time 57.4 SECONDS (23.9-36.7)
[2023-02-11 22:56] LABS: Partial Thromboplastin Time 108.7 SECONDS (23.9-36.7)
[2023-02-12] VITALS (17 sets, daily range): BP systolic 103–128; BP diastolic 56–71; PULSE 72–92; RESP 16–22; TEMP 36.3–37.1; O2SAT 93–96
[2023-02-12] MEDS: ciprofloxacin 400 MG/200 ML PREMIX 200 MG IV ×2 (01:26→14:41)
[2023-02-12] MEDS: heparin drip 25,000 UNIT/500 ML PREMIX 17 UNIT IV (02:23)
[2023-02-12] MEDS: ondansetron 2 mg/ML SDV 2 mL 4 MG IVP (03:12)
[2023-02-12] MEDS: ipratropium-albuterol 3 mL Neb INHALATION ×5 (03:47→23:30)
[2023-02-12 04:56] LABS: Reflex FDPQ test REFLEX FDP QUEST TES
[2023-02-12 05:04] LABS: Hematocrit 24.4 % (37-53); Mean Corpuscular HGB Conc 32.8 g/dL (30-55); Mean Corpuscular Hemoglobin 30.8 pg (27-33); Mean Corpuscular Volume 93.8 fl (82-101); Mean Platelet Volume 11.7 fL (7.4-10.4); Platelet Count 84 10^3/cmm (157-399); Red Cell Distribution Width 15.5 % (12.1-15.1); White Blood Count 12.99 10^3/uL (3.29-11.43)
[2023-02-12 05:22] LABS: INR 1.47 (0.8-1.2)
[2023-02-12 05:23] LABS: Fibrinogen 271 mg/dL (174-498); Partial Thromboplastin Time 64.8 SECONDS (23.9-36.7)
[2023-02-12 05:25] LABS: Alanine Aminotransferase 141 U/L (0-41); Albumin Level 2.9 g/dL (3.5-5.2); Alkaline Phosphatase 330 U/L (40-130); Aspartate Amino Transferase 126 U/L (0-40); Blood Urea Nitrogen 26 mg/dL (8-23); Calcium 7.4 mg/dL (8.5-10.5); Carbon Dioxide 26 mmol/L (22-29); Chloride 91 mmol/L (98-107); Globulin 2.5 g/dL (1.3-4.6); Glucose 114 mg/dL (65-115); Osmolality Calculated 270 mOsm/kg (285-295); Sodium 127 mmol/L (136-145); Total Bilirubin 0.5 mg/dL (0.15-1.2); Total Protein 5.4 g/dL (6.6-8.7)
[2023-02-12 05:32] LABS: D Dimer 13.04 ug/mLFEU (0-0.59)
[2023-02-12 05:36] LABS: NT Pro B Type Natriuretic Pept 7216 pg/mL (0-450)
[2023-02-12 05:46] LABS: Slide Review Slide Review Perform
[2023-02-12 05:47] LABS: Absolute Neutrophil 11.4 10^3/cmm (1.4-6.5); Absolute Segmented Neutrophil 11.2 10/cmm (1.6-7.1); Band Neutrophils Absolute 0.3 10^3/cmm (0.0-1.2); Eosinophils 0 %; Lymphocytes 6 %; Lymphocytes Absolute 0.8 10^3/cmm (1.2-3.4); Monocytes Absolute 0.5 10^3/cmm (0.1-0.6); Platelet Estimate Decreased (Normal); Segmented Neutrophils 86 %; Total Cells Counted 100 (0-100)
[2023-02-12] MEDS: metroNIDAZOLE IV 500 MG/100 ML PREMIX 100 MG IV ×3 (06:09→21:30)
[2023-02-12 07:32] LABS: Partial Thromboplastin Time 46.6 SECONDS (23.9-36.7)
[2023-02-12] MEDS: budesonide 0.5 mg/2 mL Neb INHALATION (07:54)
--- NOTE | 2023-02-12 07:56 | PC.NURSE ---
Upon rounding on the patient at shift changed this nurse noted that while the IV pump said heparin, the bag hanging was magnesium sulfate. Nurse called pharmacy to make sure patient should not be receiving mag since I didn't see it on the JUN. Pharmacy confirmed and bag was quickly switched from mag sulfate to heparin. Dr. Mata notified. He ordered a stat mag to be drawn. Patient's PTT came back at 46.6. Patient is not in any distress. He is alert and oriented times 4 and was sitting up joking with nurses. Next PTT due at 1330. Awaiting mag results.
[2023-02-12 08:05] LABS: Magnesium 2.2 mg/dL (1.7-2.3)
[2023-02-12] MEDS: pantoprazole DR 40 mg Tablet PO ×2 (08:32→17:41)
[2023-02-12] MEDS: aspirin 81 mg EC Tablet PO (08:32)
[2023-02-12] MEDS: escitalopram 10 mg Tablet 5 MG PO (08:33)
[2023-02-12] MEDS: atorvastatin 40 mg Tablet 20 MG PO (08:36)
[2023-02-12] MEDS: predniSONE 5 mg Tablet PO ×2 (08:37→17:40)
[2023-02-12] MEDS: metOLazone 5 MG Tablet PO (08:37)
[2023-02-12] MEDS: potassium chloride ER 20 mEq Tablet 40 MEQ PO (08:37)
[2023-02-12] MEDS: metoprolol succinate ER (24 HR) 25 mg Tablet 75 MG PO (08:38)
[2023-02-12] MEDS: FUROsemide 10 mg/mL SDV 4mL 40 MG IVP (08:39)
[2023-02-12 13:38] LABS: Magnesium 2.4 mg/dL (1.7-2.3)
--- NOTE | 2023-02-12 16:23 | P.PN_ITS ---
Subjective Subjective: Patient was seen this morning, family members at bedside, does report shortness of breath but his lower extremity edema has improved, no chest pain, we did discuss his anemia, hemoglobin down to 8.0, will need to monitor, Hemoccult stool, going to hold the heparin drip for now given his NSTEMI, and his diminished ejection fraction, we discussed doing stress testing on Tuesday due to his diminished ejection fraction, for now he is agreeable but he wants to see how he does by tomorrow, Vitals/I&O/Wt Last Vital Signs Temp 97.9 F 02/12/23 10:59 Pulse 76 02/12/23 15:43 Resp 18 02/12/23 15:43 BP 115/68 02/12/23 15:43 Pulse Ox 93 02/12/23 15:43 O2 Del Method Room Air 02/12/23 15:43 O2 Flow Rate 2 02/12/23 15:35 02/12/23 02/12/23 02/12/23 06:59 14:59 22:59 Intake Total 628.284 / 2495.967 944.717 / 944.717 200 / 1144.717 Output Total 1300 / 2400 1550 / 1550 1550 / 3100 Balance -671.716 / 95.967 -605.283 / -605.283 -1350 / -1955.283 Weight last 48 hrs Weight 76.929 kg Weight 74.072 kg Physical Exam Const: COMMON NORMALS: no acute distress and patient oriented x3 Resp: COMMON NORMALS: normal respiratory effort, No retractions and No use of accessory muscles AUSCULTATION: crackles Cardio: COMMON NORMALS: regular rate, regular rhythm, S1 normal heart sound present and S2 normal heart sound present RATE: regular rate RHYTHM: re gular rhythm HEART SOUNDS: S1 normal heart sound present and S2 normal heart sound present GI: COMMON NORMALS: Normal to inspection, nondistended, normoactive bowel sounds present and non-tender Extremity: COMMON NORMALS: no pedal edema Neuro: COMMON NORMALS: patient oriented x3 Psych: COMMON NORMALS: mental status grossly normal Urinary Catheter Management: Amaro: Cath Placed During This Visit: yes Reason for Continuing Indwelling Catheter: Acute Urinary Retention or Ob struction Urinary Catheter Date of Insertion: 02/09/23 Urinary Catheter Time of Insertion: 23:04 Data 02/12/23 04:27 02/12/23 04:27 A&P Assessment and plan (1) Hyponatremia: (2) Thrombocytopenia: (3) Elevated LFTs: (4) Status cardiac pacemaker: (5) HTN (hypertension): (6) Dyslipidemia: (7) SSS (sick sinus syndrome): (8) Prostate cancer: (9) Systolic CHF, acute: (10) Right-sided heart failure: (11) Cholecystitis without calculus: (12) Bilateral pleural effusion: (13) Emphysema of lung: (14) Acute anemia: Plan Acute hypoxic respiratory failure -Secondary to pulm edema, fluid overload, systolic CHF -Possible component of lung emphysema Plan -Monitor in cardiac stepdown unit -Currently on room air, will consider BiPAP schedule during the night -Continue diuresis, monitor serum sodium, creatinine -We will get 40 mg IV push Lasix this morning, metolazone, klor con -s/p dose of Solu-Medrol -Monitor respiratory status closely -DuoNeb, budesonide -Full code -Lovenox for DVT prophylaxis Systolic CHF, acute exacerbation CONCLUSIONS ?1. Normal left ventricular cavity size. Moderately decreased ?left ventricular systolic function.? Left ventricular ejection ?fraction is estimated at 30-35 % visually and 41% by modified ?biplane method. Global left ventricular hypokinesis. ?2. Mild mitral valve regurgitation. ?3. Mild to moderate tricuspid valve regurgitation. ?4. When compared to study dated 05/30/2015, left regular ?systolic function seems to have decreased. Plan -Diuresis as above -Aspirin, statin -Heparin drip on hold -Etiology cardiac versus stress-induced cardiomyopathy, Zytiga -Denies chest pain Right-sided heart failure -Possibly secondary to underlying emphysema -CT angiogram negative for pulm embolism -We will continue diuresis Acalculous cholecystitis 1. No cholelithiasis. 2. Diffuse gallbladder wall thickening with adjacent pericholecystic fluid. This may be secondary to a calculus acute cholecystitis. Gallbladder wall thickening and pericholecystic fluid also can be related to hepatocellular disease. Additional causes of pericholecystic fluid include cirrhosis, congestive heart failure and ascites. 3. Small RIGHT pleural effusion. 4. Moderate hepatomegaly. 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 Acute anemia -Heparin drip on hold ? Continue aspirin for now ? Monitor hemoglobin ? Ferritin, iron ? Hemoccult stool Metastatic prostate cancer SSS, status post pacemaker Atrial fibrillation: Declined anticoagulation, on aspirin HTN: Monitor blood pressures HLD: Alzheimer's disease Full code As SCDs for DVT prophylaxis, heparin drip on hold for anemia Plan for today, spoke to patient, spoke to daughter, spoke to son-in-law at bedside, continue IV antibiotics for a calculus cholecystitis, diuresis, Lasix and metolazone, watch hemoglobin, check hemoglobin in the hold heparin drip for NSTEMI, will consider stress test 48 hours Attestations Medical Necessity Statement*: Patient requires hospitalization for NSTEMI, CHF, a anemia, systolic CHF Diagnoses Hyponatremia E87.1 Thrombocytopenia D69.6 Elevated LFTs R79.89 Status cardiac pacemaker Z95.0 HTN (hypertension) I10 Dyslipidemia E78.5 SSS (sick sinus syndrome) I49.5 Prostate cancer C61 Systolic CHF, acute I50.21 Right-sided heart failure I50.810 Cholecystitis without calculus K81.9 Bilateral pleural effusion J90 Emphysema of lung J43.9 Acute anemia D64.9
[2023-02-12 16:51] LABS: Hematocrit 28.4 % (37-53)
[2023-02-12 17:04] LABS: Ferritin 579 ng/mL (30-400); Iron 44 ug/dL (59-158); Percent Saturation 15.7 % (20-50); Total Iron Binding Capacity 279 mcg/dl; Unsaturated Iron Binding 235 ug/dL (112-347)
--- NOTE | 2023-02-12 23:59 | PC.NURSE ---
Nurse went into check on patient as he had come off telemetry. Patient was standing at bedside naked, had removed gown and all his telemetry and was pulling on his rhodes. Nurse asked what he was doing and patient stated he was trying to pull out the rhodes as it had been hurting him all day. Nurse assisted patient back into bed and the patient told the nurse to take out the rhodes. The nurse brought in a urinal and told patient that he needed to use make sure to use the urinal so that we can get accurate I and Os. The patient agreed to use the urinal. The rhodes was removed at this time by the nurse per patient request. The nurse made aware that the rhodes had been removed and why.
[2023-02-13] VITALS (18 sets, daily range): BP systolic 107–138; BP diastolic 60–84; PULSE 83–99; RESP 15–32; TEMP 36.6–36.9; O2SAT 90–97
[2023-02-13] MEDS: zolpidem 5 mg Tablet PO (00:07)
[2023-02-13] MEDS: acetaminophen 325 mg Tablet 650 MG PO (00:36)
[2023-02-13] MEDS: ciprofloxacin 400 MG/200 ML PREMIX 200 MG IV (01:30)
[2023-02-13 03:17] LABS: Hematocrit 27.1 % (37-53); Mean Corpuscular HGB Conc 31.4 g/dL (30-55); Mean Corpuscular Hemoglobin 29.6 pg (27-33); Mean Corpuscular Volume 94.4 fl (82-101); Mean Platelet Volume 11.5 fL (7.4-10.4); Platelet Count 83 10^3/cmm (157-399); Red Blood Count 2.87 10^6/uL (3.85-5.65); Red Cell Distribution Width 15.7 % (12.1-15.1); White Blood Count 11.05 10^3/uL (3.29-11.43)
[2023-02-13 03:37] LABS: Alanine Aminotransferase 118 U/L (0-41); Albumin Level 3.3 g/dL (3.5-5.2); Alkaline Phosphatase 307 U/L (40-130); Anion Gap 14.4 (5-19); Aspartate Amino Transferase 114 U/L (0-40); Blood Urea Nitrogen 29 mg/dL (8-23); Carbon Dioxide 27 mmol/L (22-29); Chloride 90 mmol/L (98-107); Globulin 2.4 g/dL (1.3-4.6); Glucose 108 mg/dL (65-115); Osmolality Calculated 270 mOsm/kg (285-295); Potassium 4.4 mmol/L (3.5-5.1); Sodium 127 mmol/L (136-145); Total Bilirubin 0.5 mg/dL (0.15-1.2); Total Protein 5.7 g/dL (6.6-8.7)
[2023-02-13 03:46] LABS: Slide Review Slide Review Perform
[2023-02-13 03:47] LABS: Basophils % 0.3 %; Eosinophils # 0.1 10^3/uL (0.0-0.8); Eosinophils % 0.5 %; Lymphocytes # 1.6 10^3/uL (0.8-4.8); Lymphocytes % 14.2 %; Monocytes # 0.6 10^3/uL (0.2-0.9); Monocytes % 5.7 %; Neutrophils # 7.91 10^3/uL (1.8-7.7); Neutrophils % 71.6 %; Nucleated Red Blood Cells # 0.1 /100WBC
[2023-02-13 03:48] LABS: NT Pro B Type Natriuretic Pept 5277 pg/mL (0-450)
[2023-02-13] MEDS: ipratropium-albuterol 3 mL Neb INHALATION ×5 (04:04→19:06)
[2023-02-13] MEDS: metroNIDAZOLE IV 500 MG/100 ML PREMIX 100 MG IV ×2 (05:41→14:16)
--- NOTE | 2023-02-13 07:35 | PC.NURSE ---
Bed alarm set on patient. Nurse and self contained behavior unit teacher heard alarm go off and ran down to room 106 to find patient in the floor. Physician notified. Patient moved to room 111-1, closer to the nurses' station and bed alarm reset. Family notified.
[2023-02-13] MEDS: escitalopram 10 mg Tablet 5 MG PO (08:17)
[2023-02-13] MEDS: metoprolol succinate ER (24 HR) 25 mg Tablet 75 MG PO (08:18)
[2023-02-13] MEDS: predniSONE 5 mg Tablet PO ×2 (08:19→17:15)
[2023-02-13] MEDS: atorvastatin 40 mg Tablet 20 MG PO (08:19)
[2023-02-13] MEDS: pantoprazole DR 40 mg Tablet PO ×2 (08:19→17:15)
[2023-02-13] MEDS: aspirin 81 mg EC Tablet PO (08:20)
[2023-02-13] MEDS: budesonide 0.5 mg/2 mL Neb INHALATION (08:24)
--- NOTE | 2023-02-13 08:39 | XRR_ITS ---
PROCEDURE INFORMATION: Exam: XR Bilateral Hips Exam date and time: 02/13/2023 9:40 AM Age: 82 years old Clinical indication: Injury or trauma; Fall; Blunt trauma (contusions or hematomas); Bilateral; Hip; Additional info: Fall/ fracture TECHNIQUE: Imaging protocol: Radiologic exam of the bilateral hips. Views: 2 views of hips with pelvis when performed. COMPARISON: CR XR hip RT 2-3V wo/w pel* [id number] 02/08/2023 12:33 PM FINDINGS: Bones/joints: Mild arthritis right hip. 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 Otherwise, unremarkable. Soft tissues: Unremarkable. Vasculature: Vascular calcifications. XR/XR hip BI 2V wo/w pel [id number] IMPRESSION: No acute findings.
--- NOTE | 2023-02-13 08:39 | XRR_ITS ---
PROCEDURE INFORMATION: Exam: XR Lumbosacral Spine Exam date and time: 02/13/2023 9:39 AM Age: 82 years old Clinical indication: Injury or trauma; Fall; Blunt trauma (contusions or hematomas); Additional info: Pain TECHNIQUE: Imaging protocol: Radiologic exam of the lumbosacral spine. Views: 2 or 3 views. COMPARISON: NM bone scan whole body* [id number] 01/28/2023 8:45 AM FINDINGS: Bones/joints: Mild scoliosis. Severe multilevel spondylosis. Otherwise, unremarkable. Soft tissues: Unremarkable. Vasculature: Arterial calcification. XR/XR lumbar spine 2-3V* [id number] IMPRESSION: Severe multilevel spondylosis and mild scoliosis.
[2023-02-13 08:58] LABS: Add Urine Microscopic? YES; Bilirubin Urine Neg (Negative); Blood Urine Neg (Negative); Glucose Urine UA Norm (Normal); Ketones Urine Negative (Negative); Leukocyte Esterase Urine 1+ (Negative); Nitrate Urine Negative (Negative); Protein Urine Neg (Negative); Specific Gravity, Urine 1.005 (1.005-1.030); Urine Appearance Clear (CLEAR); Urine Color Yellow (Yellow); Urobilinogen Urine 1 mg/dL (Negative); pH Urine 6.5 (5-7)
[2023-02-13 09:00] LABS: Bacteria Urine TRACE /hpf; Squamous Epithelial Cell Urine 0-4 /hpf (0-5)
[2023-02-13 09:01] LABS: Add Urine Culture? No
--- NOTE | 2023-02-13 09:02 | CTR_ITS ---
PROCEDURE INFORMATION: Exam: CT Head Without Contrast Exam date and time: 02/13/2023 10:05 AM Age: 82 years old Clinical indication: Injury or trauma; Fall; Blunt trauma (contusions or hematomas); Altered mental status/memory loss; Confusion or disorientation; Additional info: AMS, fall TECHNIQUE: Imaging protocol: Computed tomography of the head without contrast. Radiation optimization: All CT scans at this facility use at least one of these dose optimization techniques: automated exposure control; mA and/or kV adjustment per patient size (includes targeted exams where dose is matched to clinical indication); or iterative reconstruction. REPORTING DATA: Count of CT and Cardiac NM exams in prior 12 months: This patient has received 3 known CTs and 0 known cardiac nuclear medicine studies in the 12 months prior to the current study. COMPARISON: NM bone scan whole body* [id number] 01/28/2023 8:45 AM RADIATION DOSE METRICS: Total DLP (mGy-cm): 1144.78 FINDINGS: Brain: Mild, diffuse atrophy of the brain.There is ill-defined, fairly symmetric low-density within the cerebral deep white matter bilaterally which is likely the sequela of chronic ischemic change due to small vessel disease. A few scattered chronic lacunar infarcts.No CT evidence of mass effect, intracranial hemorrhage, or acute infarct. . Cerebral ventricles: No ventriculomegaly. Paranasal sinuses: Visualized sinuses are unremarkable. No fluid levels. Mastoid air cells: Visualized mastoid air cells are well aerated. Bones/joints: Unremarkable. No acute fracture. Soft tissues: Unremarkable. CT/CT head wo con* [id number] IMPRESSION: 1. No acute intracranial pathology. 2. Additional details as above.
--- NOTE | 2023-02-13 09:03 | XRR_ITS ---
PROCEDURE INFORMATION: Exam: XR Chest Exam date and time: 02/13/2023 9:50 AM Age: 82 years old Clinical indication: Shortness of breath; Additional info: SOB TECHNIQUE: Imaging protocol: Radiologic exam of the chest. Views: 1 view. COMPARISON: CR XR chest 1V portable [id number] 02/10/2023 3:57 PM FINDINGS: Tubes, catheters and devices: Unchanged left pacemaker projecting in satisfactory position. Lungs: New mild diffuse bilateral pulmonary edema and/or pneumonitis. Pleural spaces: Unremarkable. No pleural effusion. No pneumothorax. Heart/Mediastinum: Unremarkable. No cardiomegaly. Bones/joints: Unchanged mild scoliosis with moderate and severe multilevel spondylosis. XR/XR chest 1V portable [id number] IMPRESSION: New mild diffuse bilateral pulmonary edema and/or pneumonitis.
--- NOTE | 2023-02-13 09:04 | XRR_ITS ---
PROCEDURE INFORMATION: Exam: XR Left Knee Exam date and time: 02/13/2023 9:47 AM Age: 82 years old Clinical indication: Injury or trauma; Fall; Blunt trauma; Knee; Left TECHNIQUE: Imaging protocol: Radiologic exam of the left knee. Views: 1 or 2 views. COMPARISON: NM bone scan whole body* [id number] 01/28/2023 8:45 AM FINDINGS: Bones/joints: Mild arthritis. Otherwise, unremarkable. Soft tissues: Normal. Vasculature: Large amount of arterial calcification. XR/XR knee LT 1-2V [id number] IMPRESSION: No acute findings.
--- NOTE | 2023-02-13 09:04 | XRR_ITS ---
PROCEDURE INFORMATION: Exam: XR Right Knee Exam date and time: 02/13/2023 9:44 AM Age: 82 years old Clinical indication: Injury or trauma; Fall; Blunt trauma; Knee; Right TECHNIQUE: Imaging protocol: Radiologic exam of the right knee. Views: 1 or 2 views. COMPARISON: NM bone scan whole body* [id number] 01/28/2023 8:45 AM FINDINGS: Bones/joints: Minimal arthritis. Otherwise, unremarkable. Soft tissues: Normal. Vasculature: Arterial calcification. XR/XR knee RT 1-2V [id number] IMPRESSION: No acute findings.
--- NOTE | 2023-02-13 12:55 | PC.OT ---
OT orders received to evaluate and treat. Evaluation to be completed on Tuesday secondary to OT weekend protocol.
--- NOTE | 2023-02-13 13:35 | PC.NURSE ---
Patient had to be redircted a number of times throughout the day. He kept wanting to crawl out of bed and crawl over rails. One time when nurse asked him where he was going he replied [place] .
--- NOTE | 2023-02-13 14:22 | PM.PN ---
Subjective Subjective: - Patient was examined multiple times throughout the morning, with family at bedside -Last night patient was pulling on his Amaro catheter, nursing staff had removed Amaro catheter -Last night patient was complaining of insomnia, difficulty falling asleep, was given Ambien -This morning at roughly 8 AM or so, patient's bed alarm went off, nursing staff had gotten checked out patient and he had fallen out of bed, and was on his bottom on the floor, no reported head trauma, no loss of consciousness, he is alert to person and place, to time, he can follow commands, but having episodes of confusion -Patient was moved to 111 bed 1 across nursing staff desk, bed alarm placed, -I was notified by nursing staff that patient's family was upset, as patient had fallen out of bed, and received Ambien overnight -Upon evaluation, patient was sitting up in bed, bed alarm going off, urinating to the urinal -He is alert oriented x3, following all commands, having intermittent confusion, but can answer most questions appropriately -He is knows that he is in the hospital, he knows that he is here in the hospital for his heart -He tells me he slipped out of bed, when he tried to get out of bed, and he landed on his bottom,, denies any headache, no blurry vision, no nausea, vomiting, no hip pain, no abdominal pain, chest pain, no knee pain, no ankle pain, -With nursing staff at bedside had a thorough physical examination, -Pupils equal round reactive to light -Can follow commands -Cranial nerves II to XII grossly intact, no facial droop, I cannot discern any slurring of his words, no focal weakness -Palpation of cervical spine, no spinal tenderness, no paraspinal tenderness,, no palpable abnormalities ? Palpation of thoracic spine no spinal tenderness, no paraspinal tenderness ?, Palpation of lumbar spine, no spinal tenderness, no paraspinal tenderness, no bruising, ? Palpation of bilateral hips, no palpable deformities, no bruising, ? Bilateral knees, no palpable abnormalities, no pain with range of motion, no clicking, popping, no pain with internal/external rotation of bilateral knees, ? Bilateral ankles, no palpable abnormalities, no pain with range of motion, no clicking or popping no pain with internal/external rotation, eversion, inversion ? I actually had patient's stand up to the side of the bed, he is able to take a few steps, without any pain ? Patient denies any pain complaints, ? I had extensive discussion with patient and family at bedside ? I apologized as he received Ambien during the night, certainly this could be playing a role into to some degree his confusion this morning, but I think a significant component is his prolonged hospitalization, he has underlying deconditioning, some degree of underlying dementia coming out as he has been hospitalized for a few days, with unfamiliar environment, I believe that it has to play a role in terms of episodes of increased confusion -UA is unremarkable for UTI -Chest x-ray does show evidence of pulmonary edema, no significant leukocytosis -He is on Cipro and Flagyl for a calculus cholecystitis, -We discussed his diminished ejection fraction, yesterday he was hesitant about proceeding with a stress test as he wanted to go home yesterday, and family convinced him to stay here for further diuresis, we had an extensive discussion with him today about doing stress testing tomorrow, he is agreeable, -We discussed monitoring his mentation this morning into this afternoon, will avoid sedating medication, avoid Ambien, my worry is is that he will have episodes of increased confusion which will result in increased worry, will try to avoid any sedating medications, but if he has a risk to himself, then we might have to use sedating medications which can further exacerbate his confusion and certainly make the situation difficult, but I am worried about him getting up out of bed again, and falling -We discussed doing further imaging, as he does not have any pain complaints I am to do an x-ray of his lumbar spine, of his hips, of his knees, to be on the safe side, as he fell on his bottom, also he does not complain of any headaches, but his confusion will prompt me to order a CT of his head, he does have metastatic prostate cancer to the bone she is increased risk of fractures -Went over the x-rays, no acute fracture, CT head, no acute findings, he was reexamined early in the afternoon, he is alert to person, to place, not to time he can follow commands, nursing staff does tell me that he has had episodes of confusion throughout the morning, trying to get up out of bed, will place a one-to-one sitter -Sodium is 127, will hold diuresis for today I suspect its from heart failure -We discussed with family, family is concerned about him going home by himself, they are worried about his risk of falls at home, discussed rehab at detention facility, patient's family tells me that they will try to convince Charlie to go to a detention facility Vitals/I&O/Wt Last Vital Signs Temp 97.9 F 02/13/23 09:23 Pulse 83 02/13/23 13:10 Resp 16 02/13/23 13:10 BP 138/78 02/13/23 13:10 Pulse Ox 94 02/13/23 13:10 O2 Del Method Nasal Cannula 02/13/23 11:13 O2 Flow Rate 2 02/13/23 11:13 02/12/23 02/13/23 02/13/23 22:59 06:59 14:59 Intake Total 540 / 1484.717 300 / 1784.717 Output Total 2100 / 3650 600 / 4250 180 / 180 Balance -1560 / -2165.283 -300 / -2465.283 -180 / -180 Weight last 48 hrs Weight 75.931 kg Weight 76.929 kg Physical Exam Const: COMMON NORMALS: no acute distress EXAM LIMITATIONS: altered mental status ORIENTATION/CONSCIOUSNESS: Yes awake, Yes oriented to person, Yes oriented to place and Yes oriented to time Eye: COMMON NORMALS: Equal, round and reactive pupils present and EOMs intact bilaterally PUPIL: Yes Equal, round and reactive pupils present Resp: COMMON NORMALS: normal respiratory effort, No retractions, No use of accessory muscles and clear to auscultation bilaterally AUSCULTATION: clear to auscultation bilaterally Cardio: COMMON NORMALS: regular rate, regular rhythm, S1 normal heart sound present and S2 normal heart sound present RATE: regular rate RHYTHM: regular rhythm HEART SOUNDS: S1 normal heart sound present and S2 normal heart sound present GI: COMMON NORMALS: Normal to inspection, nondistended, normoactive bowel sounds present and non-tender Extremity: COMMON NORMALS: no pedal edema Neuro: SENSORIUM/ORIENTATION: Yes oriented to person, Yes oriented to place and Yes oriented to time Urinary Catheter Management: Amaro: Cath Placed During This Visit: yes, but has since been removed by the nurse Reason for Continuing Indwelling Catheter: Acute Urinary Retention or Obstruction Urinary Catheter Date of Insertion: 02/09/23 Urinary Catheter Time of Insertion: 23:04 Date Urinary Catheter Removed: 02/13/23 Time Urinary Catheter Discontinued: 00:00 Data 02/13/23 02:56 02/13/23 02:56 Micro: Microbiology 02/12/23 21:05 Occult Blood (FIT) - Final Stool - Stool Aspirate A&P Assessment and plan (1) Hyponatremia: (2) Thrombocytopenia: (3) Elevated LFTs: (4) Status cardiac pacemaker: (5) HTN (hypertension): (6) Dyslipidemia: (7) SSS (sick sinus syndrome): (8) Prostate cancer: (9) Systolic CHF, acute: (10) Right-sided heart failure: (11) Cholecystitis without calculus: (12) Bilateral pleural effusion: (13) Emphysema of lung: (14) Acute anemia: (15) Acute encephalopathy: Plan Fall -monitor as above Acute encephalopathy -No significant leukocytosis ? UA within normal is ?, Chest x-ray shows pulmonary edema ? CT head within normal limits ? Did receive Ambien last night, possible delirium related to adverse drug reaction, side effect ? Has had a prolonged hospitalization, possible delirium related to prolonged hospitalization, -Acute on chronic hyponatremia 127, will monitor, repeat BMP this afternoon Acute hypoxic respiratory failure -Secondary to pulm edema, fluid overload, systolic CHF -Possible component of lung emphysema Plan -Monitor in cardiac stepdown unit -Currently on room air, will consider BiPAP schedule during the night -Continue diuresis, monitor serum sodium, creatinine -Sodium 127, he is -6 L, on 2 L nasal cannula, will monitor, consider Lasix this afternoon -s/p dose of Solu-Medrol -Monitor respiratory status closely -DuoNeb, budesonide -Full code -Lovenox for DVT prophylaxis Systolic CHF, acute exacerbation CONCLUSIONS ?1. Normal left ventricular cavity size. Moderately decreased ?left ventricular systolic function.? Left ventricular ejection ?fraction is estimated at 30-35 % visually and 41% by modified ?biplane method. Global left ventricular hypokinesis. ?2. Mild mitral valve regurgitation. ?3. Mild to moderate tricuspid valve regurgitation. ?4. When compared to study dated 05/30/2015, left regular ?systolic function seems to have decreased. Plan -Diuresis as above -Aspirin, statin -Heparin drip on hold -Etiology cardiac versus stress-induced cardiomyopathy, Zytiga -N.p.o. midnight, cardiac stress test tomorrow -Denies chest pain Right-sided heart failure -Possibly secondary to underlying emphysema -CT angiogram negative for pulm embolism -We will continue diuresis Acalculous cholecystitis 1. No cholelithiasis. 2. Diffuse gallbladder wall thickening with adjacent pericholecystic fluid. This may be secondary to a calculus acute cholecystitis. Gallbladder wall thickening and pericholecystic fluid also can be related to hepatocellular disease. Additional causes of pericholecystic fluid include cirrhosis, congestive heart failure and ascites. 3. Small RIGHT pleural effusion. 4. Moderate hepatomegaly. 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 Acute anemia -Heparin drip on hold ? Continue aspirin for now ? Monitor hemoglobin ? Ferritin, iron ? Hemoccult stool Metastatic prostate cancer SSS, status post pacemaker Atrial fibrillation: Declined anticoagulation, on aspirin HTN: Monitor blood pressures HLD: Alzheimer's disease Full code As SCDs for DVT prophylaxis, start lovenox tonight Plan for today, we will do x-ray of bilateral hips, bilateral knees, lumbar spine, CT of the head, will consider diuresis this evening, n.p.o. midnight, for stress test tomorrow, monitor mentation, neurochecks, aspiration precautions, night stroke scale, Attestations Medical Necessity Statement*: patient requires hospitalization for nstemi, chf, fall, confusion, resp failure Diagnoses Hyponatremia E87.1 Thrombocytopenia D69.6 Elevated LFTs R79.89 Status cardiac pacemaker Z95.0 HTN (hypertension) I10 Dyslipidemia E78.5 SSS (sick sinus syndrome) I49.5 Prostate cancer C61 Systolic CHF, acute I50.21 Right-sided heart failure I50.810 Cholecystitis without calculus K81.9 Bilateral pleural effusion J90 Emphysema of lung J43.9 Acute anemia D64.9 Acute encephalopathy G93.40
[2023-02-13] MEDS: nicotine 14 mg Patch 1 PATCH TRANSDERMA (14:29)
--- NOTE | 2023-02-13 14:44 | ECG_ITS ---
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 Interpretive Statements NAME OF STUDY: LEXISCAN SESTAMIBI STRESS TEST INDICATION: [Diminished EF, ] Procedure: At the baseline, the blood pressure was 140/92 mmHg with a heart rate of 86 bpm. The electrocardiogram showed normal sinus rhythm with left bundle branch block. The Lexiscan was infused over a period of 20 seconds. A total of 0.4 mg of Lexiscan was infused. The stress phase was continued for a total of 5 minutes. Heart rate was at the end of stress phase was 86 bpm and a blood pressure of 116/61 mmHg. The EKG at the peak infusion revealed normal sinus rhythm with no significant ST-T wave changes. Sestamibi was injected 20 seconds after the Lexiscan infusion. Blood pressure at the end of recovery phase was 129/67 mmHg with a heart rate of 85 bpm. Conclusion: 1. Normal EKG response to Lexiscan infusion 2. No Lexiscan induced chest pain or cardiac arrhythmia. 3. Normal blood pressure and heart rate response. 4. Sestamibi/sestamibi perfusion scan pending; see separate report. Electronically Signed On 02-19-2023 20:38:50 CDT by Gomez Sanchez M.D. [id number]
[2023-02-13] MEDS: enoxaparin 40 mg/0.4 mL Syringe SUBCUT (15:10)
[2023-02-13 16:29] LABS: Anion Gap 14.4 (5-19); Blood Urea Nitrogen 25 mg/dL (8-23); Calcium 7.9 mg/dL (8.5-10.5); Carbon Dioxide 26 mmol/L (22-29); Chloride 89 mmol/L (98-107); Glucose 88 mg/dL (65-115); Osmolality Calculated 264 mOsm/kg (285-295); Potassium 4.4 mmol/L (3.5-5.1); Sodium 125 mmol/L (136-145)
[2023-02-13] MEDS: ciprofloxacin 500 mg Tablet PO (20:30)
[2023-02-13] MEDS: metroNIDAZOLE 500 MG Tablet PO (20:30)
[2023-02-13 21:01] LABS: Sodium 127 mmol/L (136-145)
[2023-02-14] VITALS (17 sets, daily range): BP systolic 109–142; BP diastolic 55–88; PULSE 70–91; RESP 14–29; TEMP 36.7; O2SAT 93–100
--- NOTE | 2023-02-14 00:13 | PC.NURSE ---
on 02/13 upon nursing assessment pt was cooperative and agreeable to plan for the night. lab came to get blood around 1999 and pt then refused blood draw. stated we were using him as a guinea pig. nurse reassured pt that was not happening and he was in the hospital because he was sick. pt disagreed multiple times. pt started to stand up and stated he was going home and need his clothes. nurse tried to reason with him, pt still adamant he was going home. was called to come talk to him. dr came and discussed with pt the plan and pt became agreeable with plan. around 2129 pt again became uncooperative and stated he was going to leave even if he was naked. pt became threatening to the nurse and started to rip all cords of himself. he began to get up and walk to the door. nurse stepped in front of him and told him he needed to sit down incase he fell. pt became combative and was called. called family for further direction. family was as bedside within 30 mins. after family arrived pt began to settle and lay down. it was agreed with everyone that family would stay at bedside for the night and pt was moved to 112-2.
[2023-02-14 01:21] LABS: Sodium 128 mmol/L (136-145)
[2023-02-14] MEDS: ipratropium-albuterol 3 mL Neb INHALATION ×4 (03:25→20:57)
[2023-02-14 04:19] LABS: Basophils % 0.3 %; Eosinophils # 0.1 10^3/uL (0.0-0.8); Eosinophils % 0.7 %; Hematocrit 25.7 % (37-53); Lymphocytes # 1.5 10^3/uL (0.8-4.8); Lymphocytes % 16.3 %; Mean Corpuscular HGB Conc 31.9 g/dL (30-55); Mean Corpuscular Hemoglobin 29.7 pg (27-33); Mean Corpuscular Volume 93.1 fl (82-101); Monocytes # 0.7 10^3/uL (0.2-0.9); Monocytes % 7.8 %; Neutrophils # 6.33 10^3/uL (1.8-7.7); Neutrophils % 66.9 %; Nucleated Red Blood Cells # 0.1 /100WBC; Nucleated Red Blood Cells % 1.2 %; Platelet Count 79 10^3/cmm (157-399); Red Blood Count 2.76 10^6/uL (3.85-5.65); Red Cell Distribution Width 15.9 % (12.1-15.1); White Blood Count 9.47 10^3/uL (3.29-11.43)
[2023-02-14 04:34] LABS: Alanine Aminotransferase 103 U/L (0-41); Albumin Level 3.2 g/dL (3.5-5.2); Alkaline Phosphatase 305 U/L (40-130); Anion Gap 15.5 (5-19); Aspartate Amino Transferase 139 U/L (0-40); Blood Urea Nitrogen 26 mg/dL (8-23); C Reactive Protein 131.3 mg/L (0.0-4.9); Calcium 7.3 mg/dL (8.5-10.5); Carbon Dioxide 28 mmol/L (22-29); Chloride 90 mmol/L (98-107); Glucose 87 mg/dL (65-115); Osmolality Calculated 272 mOsm/kg (285-295); Phosphorus 2.6 mg/dL (2.5-4.5); Potassium 4.5 mmol/L (3.5-5.1); Sodium 129 mmol/L (136-145); Total Bilirubin 0.9 mg/dL (0.15-1.2); Total Protein 5.2 g/dL (6.6-8.7)
[2023-02-14 04:44] LABS: NT Pro B Type Natriuretic Pept 13186 pg/mL (0-450); Procalcitonin 0.36 ng/mL (0-0.5)
[2023-02-14 04:47] LABS: Slide Review Slide Review Perform
[2023-02-14] MEDS: regadenoson 0.4 Mg/5 ml Syringe IVP (08:27)
--- NOTE | 2023-02-14 08:48 | PC.NURSE ---
Patient left CSU for stress test at 0715.
--- NOTE | 2023-02-14 08:57 | PC.OT ---
OT EVALUATION HELD PATIENT CURRENTLY IN STRESS TEST. WILL ATTEMPT TOMORROW.
--- NOTE | 2023-02-14 09:16 | PC.NURSE ---
Patient came back to CSU from stress test at 0915 via a wheelchair.
[2023-02-14] MEDS: predniSONE 5 mg Tablet PO ×2 (09:52→17:40)
[2023-02-14] MEDS: pantoprazole DR 40 mg Tablet PO ×2 (09:52→17:41)
[2023-02-14] MEDS: ciprofloxacin 500 mg Tablet PO ×2 (09:52→21:02)
[2023-02-14] MEDS: atorvastatin 40 mg Tablet 20 MG PO (09:53)
[2023-02-14] MEDS: metoprolol succinate ER (24 HR) 25 mg Tablet 75 MG PO (09:53)
[2023-02-14] MEDS: aspirin 81 mg EC Tablet PO (09:53)
[2023-02-14] MEDS: metroNIDAZOLE 500 MG Tablet PO ×3 (09:53→21:02)
[2023-02-14] MEDS: escitalopram 10 mg Tablet 5 MG PO (09:54)
[2023-02-14] MEDS: nicotine 14 mg Patch 1 PATCH TRANSDERMA (09:54)
--- NOTE | 2023-02-14 12:20 | PC.SOCIAL ---
IMM Update pg 2 of IMM updated and reviewed w/ patient and daughter. Copy provided and copy in chart dated, and initialed.
--- NOTE | 2023-02-14 14:44 | NMCV_ITS ---
NM aida perf SPECT r/s* [id number] Charlie Regalado Age: 82 Gender: M : 1940 Exam Date: 02/14/2023 14:44 Ordering Phys: Eulalio Mata MD Technologist: NEGAR Wesley Exam Location: [facility] Indications: CHEST PAIN STRESS TEST Please see separate stress test report in [facility] for full findings IMAGE PROTOCOL Rest/Stress 1 Lexiscan Day Radiopharmaceutical Dose (mCi) Administration Site Administered by Rest: Tc-99m 9.8 IV NEGAR Rob Sestamibi Stress:Tc-99m 27.9 IV NEGAR Wesley Sestamichi Rest: 14-Feb-2023 60 Discovery 630 Stress: 14-Feb-2023 30 Discovery 630 0.4mg Lexiscan. Supine position only as patient was unable to lay prone. SPECT RESULTS Technical Quality: Excellent Raw Data Analysis: Normal Image Corrections: No attenuation or motion correction applied Summed Stress Score: 4 Summed Rest Score: 8 Summed Difference Score: 0 PERFUSION FINDINGS There is medium sized, fixed perfusion defects noted in apical inferior and septal ryan. 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 No evidence of ischemia. FUNCTIONAL RESULTS (calculated via Gated SPECT) Stress Image LV EF (%): 36 Stress EDV (mL):148 TID: 1 Stress ESV (mL):95 FUNCTIONAL FINDINGS: LV systolic function is moderate to severely reduced with EF of 36% and moderate to severe global hypokinesis. IMPRESSIONS 1. 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 No evidence of ischemia. 2. LV systolic function is moderate to severely reduced with EF of 36%. Moderate to severe global hypokinesis is seen. Gomez Sanchez MD (Electronically Signed) Final Date: 14 February 2023 13:55 S
[2023-02-14] MEDS: enoxaparin 40 mg/0.4 mL Syringe SUBCUT (15:57)
--- NOTE | 2023-02-14 19:06 | PM.PN ---
Subjective Subjective: - Patient was seen this morning -After stress test he is alert to person, to place, not to time he is a bit drowsy -For members at bedside, denies any shortness of breath, no chest pain, no abdominal pain -No nausea, no vomiting, afebrile overnight -Did have episodes of confusion overnight, requiring family emergency to sit by him at bedside -For now reselling me that he typically sleeps during the day, is awake during the night even at home, he is quite functional at home -Patient was reexamined in the evening time, he is sitting up in a chair actually calling his sister, son is at bedside, I did detailed discussion about his stress test, given his diminished ejection fraction of 35% there is no acute ischemia but there is areas of old infarction which will monitor, will have him follow-up with cardiology as outpatient with consideration of stress testing, and I have confirmed with cardiology that given his age his risk factors creatinine this is the best course of action, they voiced understanding -I also had a discussion about his PET scan, 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, son is at bedside, voiced understanding Vitals/I&O/Wt Last Vital Signs Temp 97.9 F 02/13/23 09:23 Pulse 75 02/14/23 17:05 Resp 18 02/14/23 17:05 BP 142/88 02/14/23 17:05 Pulse Ox 95 02/14/23 17:05 O2 Del Method Room Air 02/14/23 17:05 O2 Flow Rate 3 02/14/23 15:02 02/14/23 02/14/23 02/14/23 06:59 14:59 22:59 Intake Total 340 / 340 240 / 580 Output Total 250 / 430 Balance -250 / -430 340 / 340 240 / 580 Weight last 48 hrs Weight 73.482 kg Weight 75.931 kg Physical Exam Const: COMMON NORMALS: no acute distress and patient oriented x3 Resp: COMMON NORMALS: normal respiratory effort, No retractions, No use of accessory muscles and clear to auscultation bilaterally AUSCULTATION: clear to auscultation bilaterally Cardio: COMMON NORMALS: regular rate, regular rhythm, S1 normal heart sound present and S2 normal heart sound present RATE: regular rate RHYTHM: regular rhythm HEART SOUNDS: S1 normal heart sound present and S2 normal heart sound present GI: COMMON NORMALS: Normal to inspection, nondistended, normoactive bowel sounds present and non-tender Extremity: COMMON NORMALS: no pedal edema Neuro: COMMON NORMALS: patient oriented x3, CN's II-XII intact bilaterally, moves all extremities and no focal motor deficits Psych: COMMON NORMALS: mental status grossly normal Urinary Catheter Management: Amaro: Cath Placed During This Visit: yes, but has since been removed by the nurse Reason for Continuing Indwelling Catheter: Acute Urinary Retention or Obstruction Urinary Catheter Date of Insertion: 02/09/23 Urinary Catheter Time of Insertion: 23:04 Date Urinary Catheter Removed: 02/13/23 Time Urinary Catheter Discontinued: 00:00 Data 02/14/23 03:24 02/14/23 03:24 Micro: Microbiology 02/14/23 10:40 Blood Culture - Preliminary Blood SPECIMEN COLLECTED 02/14/23 10:40 Blood Culture - Preliminary Blood SPECIMEN COLLECTED A&P Assessment and plan (1) Hyponatremia: (2) Thrombocytopenia: (3) Elevated LFTs: (4) Status cardiac pacemaker: (5) HTN (hypertension): (6) Dyslipidemia: (7) SSS (sick sinus syndrome): (8) Prostate cancer: (9) Systolic CHF, acute: (10) Right-sided heart failure: (11) Cholecystitis without calculus: (12) Bilateral pleural effusion: (13) Emphysema of lung: (14) Acute anemia: (15) Acute encephalopathy: (16) Physical deconditioning: (17) Protein calorie malnutrition: Plan Fall -Multiple x-rays no acute fracture Acute encephalopathy -No significant leukocytosis ? UA within normal is within normal limits ?, Chest x-ray shows pulmonary edema ? CT head within normal limits ? Did receive Ambien last night, possible delirium related to adverse drug reaction, side effect -He did receive magnesium sulfate accidentally on Tuesday, which was stopped, after about 1/4 of it infused, doubt that this is likely why he is encephalopathic, will monitor ? Has had a prolonged hospitalization, possible delirium related to prolonged hospitalization, -Acute on chronic hyponatremia 129 Acute hypoxic respiratory failure -Secondary to pulm edema, fluid overload, systolic CHF -Possible component of lung emphysema Plan -Monitor in cardiac stepdown unit -Currently on room air, will consider BiPAP schedule during the night -Continue diuresis, monitor serum sodium, creatinine -Sodium 129, he is -6 L, on 2 L nasal cannula, will monitor, consider Lasix this afternoon -s/p dose of Solu-Medrol -Monitor respiratory status closely -DuoNeb, budesonide -Full code -Lovenox for DVT prophylaxis Systolic CHF, acute exacerbation CONCLUSIONS ?1. Normal left ventricular cavity size. Moderately decreased ?left ventricular systolic function.? Left ventricular ejection ?fraction is estimated at 30-35 % visually and 41% by modified ?biplane method. Global left ventricular hypokinesis. ?2. Mild mitral valve regurgitation. ?3. Mild to moderate tricuspid valve regurgitation. ?4. When compared to study dated 05/30/2015, left regular ?systolic function seems to have decreased. Plan -Diuresis as above -Aspirin, statin -Etiology cardiac versus stress-induced cardiomyopathy, Zytiga -Cardiac stress test -?IMPRESSIONS ?1.? 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 No evidence of ischemia. ?2.? LV systolic function is moderate to severely reduced with EF of 36%.? ?Moderate to severe global hypokinesis is seen. -Denies chest pain Right-sided heart failure -Possibly secondary to underlying emphysema -CT angiogram negative for pulm embolism -We will continue diuresis as above Acalculous cholecystitis 1. No cholelithiasis. 2. Diffuse gallbladder wall thickening with adjacent pericholecystic fluid. This may be secondary to a calculus acute cholecystitis. Gallbladder wall thickening and pericholecystic fluid also can be related to hepatocellular disease. Additional causes of pericholecystic fluid include cirrhosis, congestive heart failure and ascites. 3. Small RIGHT pleural effusion. 4. Moderate hepatomegaly. 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 Acute anemia -Heparin stopped ? Continue aspirin for now ? Monitor hemoglobin ? Hemoccult stool negative Metastatic prostate cancer SSS, status post pacemaker Atrial fibrillation: Declined anticoagulation, on aspirin HTN: Monitor blood pressures HLD: Alzheimer's disease Full code As SCDs for DVT prophylaxis, lovenox Plan for today, stress test, spoke to patient, family, Attestations Medical Necessity Statement*: patient requires hospitalization for systolic CHF, requiring diuresis, with encephalopathy, multifactorial, deconditioning, protein calorie malnutrition, PT OT, dietary eval Coding Level of Care Code Acute Code for Chg Fwd Diagnoses Hyponatremia E87.1 Thrombocytopenia D69.6 Elevated LFTs R79.89 Status cardiac pacemaker Z95.0 HTN (hypertension) I10 Dyslipidemia E78.5 SSS (sick sinus syndrome) I49.5 Prostate cancer C61 Systolic CHF, acute I50.21 Right-sided heart failure I50.810 Cholecystitis without calculus K81.9 Bilateral pleural effusion J90 Emphysema of lung J43.9 Acute anemia D64.9 Acute encephalopathy G93.40 Physical deconditioning R53.81 Protein calorie malnutrition E46
[2023-02-15] VITALS (18 sets, daily range): BP systolic 102–122; BP diastolic 51–75; PULSE 73–174; RESP 16–24; TEMP 36.8–37.7; O2SAT 78–96; BMI 22.6
[2023-02-15 04:18] LABS: Hematocrit 27.1 % (37-53); Mean Corpuscular HGB Conc 31.4 g/dL (30-55); Mean Corpuscular Hemoglobin 29.8 pg (27-33); Mean Corpuscular Volume 95.1 fl (82-101); Mean Platelet Volume 10.6 fL (7.4-10.4); Platelet Count 87 10^3/cmm (157-399); Red Blood Count 2.85 10^6/uL (3.85-5.65); Red Cell Distribution Width 15.8 % (12.1-15.1); White Blood Count 10.07 10^3/uL (3.29-11.43)
[2023-02-15 04:36] LABS: Slide Review Slide Review Perform
[2023-02-15 04:37] LABS: Absolute Eosinophils 0.1 10^3/cmm (0.0-0.7); Absolute Segmented Neutrophil 7.5 10/cmm (1.6-7.1); Eosinophils 1 %; Lymphocytes 9 %; Monocytes Absolute 0.7 10^3/cmm (0.1-0.6); Platelet Estimate Decreased (Normal); Segmented Neutrophils 74 %; Total Cells Counted 100 (0-100)
[2023-02-15 04:40] LABS: Alanine Aminotransferase 85 U/L (0-41); Alkaline Phosphatase 300 U/L (40-130); Anion Gap 14.9 (5-19); Aspartate Amino Transferase 113 U/L (0-40); Blood Urea Nitrogen 25 mg/dL (8-23); C Reactive Protein 172.6 mg/L (0.0-4.9); Carbon Dioxide 27 mmol/L (22-29); Chloride 89 mmol/L (98-107); Globulin 2.6 g/dL (1.3-4.6); Glucose 120 mg/dL (65-115); Osmolality Calculated 270 mOsm/kg (285-295); Phosphorus 2.2 mg/dL (2.5-4.5); Potassium 3.9 mmol/L (3.5-5.1); Sodium 127 mmol/L (136-145); Total Bilirubin 0.9 mg/dL (0.15-1.2); Total Protein 5.6 g/dL (6.6-8.7)
[2023-02-15 04:45] LABS: NT Pro B Type Natriuretic Pept 15482 pg/mL (0-450); Procalcitonin 0.39 ng/mL (0-0.5)
[2023-02-15] MEDS: ipratropium-albuterol 3 mL Neb INHALATION ×4 (04:59→20:07)
[2023-02-15] MEDS: budesonide 0.5 mg/2 mL Neb INHALATION (07:39)
[2023-02-15] MEDS: atorvastatin 40 mg Tablet 20 MG PO (08:42)
[2023-02-15] MEDS: pantoprazole DR 40 mg Tablet PO ×2 (08:42→17:12)
[2023-02-15] MEDS: aspirin 81 mg EC Tablet PO (08:42)
[2023-02-15] MEDS: metoprolol succinate ER (24 HR) 25 mg Tablet 75 MG PO (08:42)
[2023-02-15] MEDS: escitalopram 10 mg Tablet 5 MG PO (08:43)
[2023-02-15] MEDS: ciprofloxacin 500 mg Tablet PO ×2 (08:43→21:05)
[2023-02-15] MEDS: predniSONE 5 mg Tablet PO ×2 (08:44→17:12)
[2023-02-15] MEDS: metroNIDAZOLE 500 MG Tablet PO ×3 (08:44→21:05)
--- NOTE | 2023-02-15 08:45 | PC.CHAP ---
Pastoral Care Encounter/Spiritual Assessment Type of Contact [] Declined dock manager visit [] Patient/Family/Request visit [] Outpatient visit [] Follow-up visit [] Physician referral [] Code/Alert [x] Routine visit [] Staff referral [] Actively dying [] Patient sleeping [x] Family support [] [] Out of room [] Palliative care [] [] Receiving care in room [] Pre-surgical visit [] Trauma [] Long length of stay [] ICU visit [] Other: Relational/Emotional Strength [x] Patient feels connected with others/family/visitors/staff [] Distress [] Loneliness/isolation [] Abandonment Spirituality of Patient [x] Person of [place]ieve [] Attends Holiness of their [place] [x] Believes in Prayer [] Reads Bible or Voodoo materials [] There are Spiritual issues to be addressed 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 Interventions [x] Prayer [x] Active listening [] Non-anxious presence [x] Spiritual/emotional support [] Crisis/trauma care [] Spiritual counseling [] Bereavement support [] Provided bereavement packet [] Provided Bible/devotional materials [] Provided toy/stuffed animal, coloring book to patient or family member [] Provided Communion [] Anointing/[place] [] Salvation [] Completed spiritual assessment [] Other: Impact on Illness or Injury [] Angry [] Fearful [] Anxious [] Often cries [] Exhaustion [] Unable to work [] Unable to attend mandaen [] Unable to walk/stand [] Unable to read [] Unable to drive [] Unable to eat/drink [] Unable to sleep [] Unable to be with family [] Patient intubated [] Other: Summary Time spent with patient 5 min
--- NOTE | 2023-02-15 09:30 | CT_ITS ---
WS: [id number] CT ABDOMEN PELVIS TECHNIQUE: Noncontrast CT of the abdomen and pelvis with coronal and sagittal reformatted images. CLINICAL INFORMATION: cholecystitis, elevated crp, COMPARISON: 01/27/2023 DLP: 468.[address] scans at [facility] use at least one of these dose optimization techniques: automated e xposure control; mA and/or kV adjustment per patient size (includes targeted exams where dose is matc hed to clinical indication); or iterative reconstruction. FINDINGS: Similar-appearing sclerotic osseous metastasis. LEFT YESSY. Small bilateral pleural effusions. Emphysem atous changes in the lung bases. Compressive atelectasis lung bases. Gallbladder is contracted. Mild hepatomegaly. Small esophageal renal hernia. Bilateral adrenal gland hypertrophy LEFT greater than RI GHT unchanged. Splenic artery calcification. Normal caliber abdominal aorta. Small bladder cystocele. Sigmoid diverticulosis. LEFT lower pole renal cyst. No hydronephrosis in eit her kidney. Mild body wall anasarca. Stable borderline enlarged LEFT retroperitoneal lymph node previ ously described on the recent CT abdomen pelvis 01/27/2023. Disc space narrowing throughout the lumbar spine. IMPRESSION: 1. Gallbladder is contracted. No pericholecystic fluid. 2. Small bilateral pleural effusions RIGHT greater than LEFT. 3. Small esophageal hiatal hernia. 4. 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 5. No hydronephrosis in either kidney. 6. Bilateral adrenal gland hypertrophy unchanged. 7. Mild diffuse body wall anasarca progressed compared to previous. 8. No other acute findings.
--- NOTE | 2023-02-15 09:40 | XRR_ITS ---
PROCEDURE INFORMATION: Exam: XR Chest Exam date and time: 02/15/2023 9:57 AM Age: 82 years old Clinical indication: Shortness of breath; Patient HX: HX of prostate cancer; Additional info: SOB TECHNIQUE: Imaging protocol: Radiologic exam of the chest. Views: 1 view. COMPARISON: CR (CHEST, ) 02/13/2023 9:50 AM FINDINGS: Lungs: Mild prominence of bronchovascular interstitial lower lung zone with peribronchial cuffing suspicious for mild pulmonary vascular congestion. No irma pulmonary edema or infiltrates detected. Pleural spaces: Unremarkable. No pleural effusion. No pneumothorax. Heart/Mediastinum: Heart is moderately enlarged. Dual electrode pacemaker unchanged projecting within the right atrium right ventricle. Pulmonary vascular distribution indicating elevated central venous pressure. Bones/joints: Unremarkable for age. XR/XR chest 1V portable [id number] IMPRESSION: Cardiomegaly with mild pulmonary vascular congestion likely secondary to CHF.
[2023-02-15] MEDS: potassium chloride ER 20 mEq Tablet 40 MEQ PO (14:19)
[2023-02-15] MEDS: enoxaparin 40 mg/0.4 mL Syringe SUBCUT (14:19)
[2023-02-15] MEDS: FUROsemide 10 mg/mL SDV 4mL 40 MG IVP (14:19)
--- NOTE | 2023-02-15 17:04 | PM.PN ---
Subjective Subjective: Patient was seen this morning, he has some 1+ pitting edema bilateral extremity, crackles on lung exam, on 2 L, he is speaking on his phone with his sister, he is alert to person, to place, follows commands, he is frustrated about being here in the hospital, and discussion about his elevated CRP, white blood cell count is a bit on the higher and I would repeat a CT scan to look at his gallbladder to ensure that the infection is not worsening, we will need to diurese him today, but his sodium levels are on the lower end at 127, will have to monitor those closely, I suspect that hopefully they should remain stable with Lasix, but his BNP is elevated he has evidence of fluid overload so I will need to diurese him today, he understands as he is frustrated about being here in the hospital, he really wants to go home to his dog Vitals/I&O/Wt Last Vital Signs Temp 98.7 F 02/15/23 15:45 Pulse 78 02/15/23 15:45 Resp 24 H 02/15/23 15:45 BP 104/54 02/15/23 15:45 Pulse Ox 94 02/15/23 15:45 O2 Del Method Nasal Cannula 02/15/23 15:45 O2 Flow Rate 2 02/15/23 15:45 02/15/23 02/15/23 02/15/23 06:59 14:59 22:59 Intake Total 660 / 660 Output Total 220 / 220 Balance -220 / 360 660 / 660 Weight last 48 hrs Weight 71.356 kg Weight 73.482 kg Physical Exam Const: COMMON NORMALS: no acute distress and patient oriented x3 Resp: COMMON NORMALS: normal respiratory effort, No retractions, No use of accessory muscles and clear to auscultation bilaterally AUSCULTATION: clear to auscultation bilaterally Cardio: COMMON NORMALS: regular rate, regular rhythm, S1 normal heart sound present and S2 normal heart sound present RATE: regular rate RHYTHM: regular rhythm HEART SOUNDS: S1 normal heart sound present and S2 normal heart sound present GI: COMMON NORMALS: Normal to inspection, nondistended, normoactive bowel sounds present and non-tender Extremity: COMMON NORMALS: no pedal edema Neuro: COMMON NORMALS: patient oriented x3 Psych: COMMON NORMALS: mental status grossly normal Urinary Catheter Management: Amaro: Cath Placed During This Visit: yes, but has since been removed by the nurse Reason for Continuing Indwelling Catheter: Acute Urinary Retention or Obstruction Urinary Catheter Date of Insertion: 02/09/23 Urinary Catheter Time of Insertion: 23:04 Date Urinary Catheter Removed: 02/13/23 Time Urinary Catheter Discontinued: 00:00 Data 02/15/23 03:40 02/15/23 03:40 Micro: Microbiology 02/14/23 10:40 Blood Culture - Preliminary Blood NEGATIVE TO DATE 02/14/23 10:40 Blood Culture - Preliminary Blood NEGATIVE TO DATE 02/13/23 10:42 Urine Culture - Final Urine,Voided A&P Assessment and plan (1) Hyponatremia: (2) Thrombocytopenia: (3) Elevated LFTs: (4) Status cardiac pacemaker: (5) HTN (hypertension): (6) Dyslipidemia: (7) SSS (sick sinus syndrome): (8) Prostate cancer: (9) Systolic CHF, acute: (10) Right-sided heart failure: (11) Cholecystitis without calculus: (12) Bilateral pleural effusion: (13) Emphysema of lung: (14) Acute anemia: (15) Acute encephalopathy: (16) Physical deconditioning: (17) Protein calorie malnutrition: Plan Fall -Multiple x-rays no acute fracture Acute encephalopathy -No significant leukocytosis ? UA within normal is within normal limits ?, Chest x-ray shows pulmonary edema ? CT head within normal limits ? Did receive Ambien last night, possible delirium related to adverse drug reaction, side effect -He did receive magnesium sulfate accidentally on Tuesday, which was stopped, after about 1/4 of it infused, doubt that this is likely why he is encephalopathic, will monitor ? Has had a prolonged hospitalization, possible delirium related to prolonged hospitalization, -Acute on chronic hyponatremia 129 Acute hypoxic respiratory failure -Secondary to pulm edema, fluid overload, systolic CHF -Possible component of lung emphysema Plan -Monitor in cardiac stepdown unit -Currently on room air, will consider BiPAP schedule during the night -Continue diuresis, monitor serum sodium, creatinine -Sodium 129, he is -6 L, on 2 L nasal cannula, will monitor, consider Lasix this afternoon -s/p dose of Solu-Medrol -Monitor respiratory status closely -DuoNeb, budesonide -Full code -Lovenox for DVT prophylaxis Systolic CHF, acute exacerbation CONCLUSIONS ?1. Normal left ventricular cavity size. Moderately decreased ?left ventricular systolic function.? Left ventricular ejection ?fraction is estimated at 30-35 % visually and 41% by modified ?biplane method. Global left ventricular hypokinesis. ?2. Mild mitral valve regurgitation. ?3. Mild to moderate tricuspid valve regurgitation. ?4. When compared to study dated 05/30/2015, left regular ?systolic function seems to have decreased. Plan -Diuresis as above -Aspirin, statin -Etiology cardiac versus stress-induced cardiomyopathy, Zytiga -Cardiac stress test -?IMPRESSIONS ?1.? 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 No evidence of ischemia. ?2.? LV systolic function is moderate to severely reduced with EF of 36%.? ?Moderate to severe global hypokinesis is seen. -Denies chest pain Right-sided heart failure -Possibly secondary to underlying emphysema -CT angiogram negative for pulm embolism -We will continue diuresis as above Acalculous cholecystitis 1. No cholelithiasis. 2. Diffuse gallbladder wall thickening with adjacent pericholecystic fluid. This may be secondary to a calculus acute cholecystitis. Gallbladder wall thickening and pericholecystic fluid also can be related to hepatocellular disease. Additional causes of pericholecystic fluid include cirrhosis, congestive heart failure and ascites. 3. Small RIGHT pleural effusion. 4. Moderate hepatomegaly. 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 Acute anemia -Heparin stopped ? Continue aspirin for now ? Monitor hemoglobin ? Hemoccult stool negative Metastatic prostate cancer SSS, status post pacemaker Atrial fibrillation: Declined anticoagulation, on aspirin HTN: Monitor blood pressures HLD: Alzheimer's disease Full code As SCDs for DVT prophylaxis, lovenox Plan for today, follow serum sodium, repeat in the afternoon, CT scan abdomen pelvis, continue antibiotics, BNP is over 15,000, with evidence of fluid overload 1 dose of Lasix, Attestations Medical Necessity Statement*: Patient requires hospitalization for fluid overload, requiring diuresis, persistently elevated CRP, with upward trending WBC, requiring CT scan abdomen pelvis Diagnoses Hyponatremia E87.1 Thrombocytopenia D69.6 Elevated LFTs R79.89 Status cardiac pacemaker Z95.0 HTN (hypertension) I10 Dyslipidemia E78.5 SSS (sick sinus syndrome) I49.5 Prostate cancer C61 Systolic CHF, acute I50.21 Right-sided heart failure I50.810 Cholecystitis without calculus K81.9 Bilateral pleural effusion J90 Emphysema of lung J43.9 Acute anemia D64.9 Acute encephalopathy G93.40 Physical deconditioning R53.81 Protein calorie malnutrition E46
[2023-02-15] MEDS: nicotine 14 mg Patch 1 PATCH TRANSDERMA (17:13)
[2023-02-15 18:04] LABS: Sodium 128 mmol/L (136-145)
[2023-02-15] MEDS: acetaminophen 325 mg Tablet 650 MG PO (22:53)
[2023-02-15] MEDS: lidocaine 5% Patch 1 PATCH TOPICAL (23:07)
[2023-02-16] VITALS (14 sets, daily range): BP systolic 122–135; BP diastolic 60–79; PULSE 74–90; RESP 8–24; TEMP 36.6–36.9; O2SAT 87–98; BMI 22.5
[2023-02-16 04:16] LABS: Basophils % 0.3 %; Eosinophils # 0.1 10^3/uL (0.0-0.8); Eosinophils % 0.5 %; Hematocrit 25.8 % (37-53); Lymphocytes # 1.5 10^3/uL (0.8-4.8); Mean Corpuscular HGB Conc 31.8 g/dL (30-55); Mean Corpuscular Hemoglobin 29.9 pg (27-33); Mean Corpuscular Volume 94.2 fl (82-101); Mean Platelet Volume 11.8 fL (7.4-10.4); Monocytes # 0.8 10^3/uL (0.2-0.9); Monocytes % 7.7 %; Neutrophils # 6.97 10^3/uL (1.8-7.7); Neutrophils % 63.5 %; Nucleated Red Blood Cells # 0.1 /100WBC; Nucleated Red Blood Cells % 0.6 %; Platelet Count 83 10^3/cmm (157-399); Red Blood Count 2.74 10^6/uL (3.85-5.65); Red Cell Distribution Width 15.8 % (12.1-15.1); White Blood Count 10.98 10^3/uL (3.29-11.43)
[2023-02-16 04:33] LABS: Alanine Aminotransferase 67 U/L (0-41); Albumin Level 2.7 g/dL (3.5-5.2); Alkaline Phosphatase 266 U/L (40-130); Anion Gap 12.1 (5-19); Aspartate Amino Transferase 97 U/L (0-40); Blood Urea Nitrogen 24 mg/dL (8-23); C Reactive Protein 120.5 mg/L (0.0-4.9); Carbon Dioxide 30 mmol/L (22-29); Chloride 88 mmol/L (98-107); Globulin 2.5 g/dL (1.3-4.6); Glucose 119 mg/dL (65-115); Magnesium 1.7 mg/dL (1.7-2.3); Osmolality Calculated 267 mOsm/kg (285-295); Phosphorus 2.5 mg/dL (2.5-4.5); Potassium 4.1 mmol/L (3.5-5.1); Sodium 126 mmol/L (136-145); Total Bilirubin 0.8 mg/dL (0.15-1.2); Total Protein 5.2 g/dL (6.6-8.7)
[2023-02-16 04:36] LABS: Slide Review Slide Review Perform
[2023-02-16 04:44] LABS: NT Pro B Type Natriuretic Pept 12335 pg/mL (0-450); Procalcitonin 0.26 ng/mL (0-0.5)
[2023-02-16] MEDS: ipratropium-albuterol 3 mL Neb INHALATION ×4 (09:00→20:14)
[2023-02-16] MEDS: budesonide 0.5 mg/2 mL Neb INHALATION (09:00)
[2023-02-16] MEDS: escitalopram 10 mg Tablet 5 MG PO (09:03)
[2023-02-16] MEDS: ciprofloxacin 500 mg Tablet PO ×2 (09:03→20:27)
[2023-02-16] MEDS: atorvastatin 40 mg Tablet 20 MG PO (09:04)
[2023-02-16] MEDS: aspirin 81 mg EC Tablet PO (09:04)
[2023-02-16] MEDS: predniSONE 5 mg Tablet PO ×2 (09:04→17:20)
[2023-02-16] MEDS: metroNIDAZOLE 500 MG Tablet PO ×3 (09:05→20:27)
[2023-02-16] MEDS: pantoprazole DR 40 mg Tablet PO ×2 (09:05→17:20)
[2023-02-16] MEDS: metoprolol succinate ER (24 HR) 25 mg Tablet 75 MG PO (09:05)
[2023-02-16] MEDS: acetaminophen 325 mg Tablet 650 MG PO (10:51)
[2023-02-16 11:18] LABS: Sodium 124 mmol/L (136-145)
--- NOTE | 2023-02-16 12:13 | PC.SOCIAL ---
IMM Update pg 2 of IMM updated and reviewed w/ patient. Copy provided and Copy dated, initialed and placed in chart.
--- NOTE | 2023-02-16 15:36 | PM.PN ---
Subjective Subjective: patient was seen this morning, he is aaoX3, follows commands, no headache, no blurry vision, we discussed his serum sodium of 126, his breathing has significantly improved, he is alert and awake, he is sitting up in a chair, he is on 2 L, we discussed his CT findings of emphysema, with his heart failure he is going to need oxygen for some period of time more in fact the rest of his life, he is agreeable, we discussed watching here as inpatient if his serum sodium improves he can certainly potentially be discharged home, if his serum sodium drops, then we will have to watch him as inpatient due to morbidity mortality associated he is agreeable, he was reexamined in the evening time, he sitting up in a chair, family at bedside, he is feeling well, alert oriented x3, following all commands, he is talking to his family emerged I discussed his serum sodium 124, it is likely from heart failure from diuresis, not can to try to correct it, due to risks of fluid overload, risk of cerebral edema I Libby watch it every 4 hours liberalize his fluid intake, I think his baseline sodium is anywhere between 1 27-1 30, Vitals/I&O/Wt Last Vital Signs Temp 98.5 F 02/16/23 14:52 Pulse 84 02/16/23 14:52 Resp 18 02/16/23 13:03 BP 132/76 02/16/23 14:52 Pulse Ox 96 02/16/23 14:52 O2 Del Method Nasal Cannula 02/16/23 14:52 O2 Flow Rate 2 02/16/23 09:00 02/16/23 02/16/23 02/16/23 06:59 14:59 22:59 Intake Total 500 / 500 Balance 500 / 500 Weight last 48 hrs Weight 71.271 kg Weight 71.356 kg Physical Exam Const: COMMON NORMALS: no acute distress and patient oriented x3 Resp: COMMON NORMALS: normal respiratory effort, No retractions, No use of accessory muscles and clear to auscultation bilaterally AUSCULTATION: clear to auscultation bilaterally Cardio: COMMON NORMALS: regular rate, regular rhythm, S1 normal heart sound present and S2 normal heart sound present RATE: regular rate RHYTHM: regular rhythm HEART SOUNDS: S1 normal heart sound present and S2 normal heart sound present GI: COMMON NORMALS: Normal to inspection, nondistended, normoactive bowel sounds present and non-tender Extremity: COMMON NORMALS: no pedal edema Neuro: COMMON NORMALS: patient oriented x3 Psych: COMMON NORMALS: mental status grossly normal Urinary Catheter Management: Amaro: Cath Placed During This Visit: yes, but has since been removed by the nurse Reason for Continuing Indwelling Catheter: Acute Urinary Retention or Obstruction Urinary Catheter Date of Insertion: 02/09/23 Urinary Catheter Time of Insertion: 23:04 Date Urinary Catheter Removed: 02/13/23 Time Urinary Catheter Discontinued: 00:00 Data 02/16/23 04:05 02/16/23 10:47 Micro: Microbiology 02/14/23 10:40 Blood Culture - Preliminary Blood NEGATIVE TO DATE 02/14/23 10:40 Blood Culture - Preliminary Blood NEGATIVE TO DATE 02/13/23 10:42 Urine Culture - Final Urine,Voided A&P Assessment and plan (1) Hyponatremia: (2) Thrombocytopenia: (3) Elevated LFTs: (4) Status cardiac pacemaker: (5) HTN (hypertension): (6) Dyslipidemia: (7) SSS (sick sinus syndrome): (8) Prostate cancer: (9) Systolic CHF, acute: (10) Right-sided heart failure: (11) Cholecystitis without calculus: (12) Bilateral pleural effusion: (13) Emphysema of lung: (14) Acute anemia: (15) Acute encephalopathy: (16) Physical deconditioning: (17) Protein calorie malnutrition: Plan Fall -Multiple x-rays no acute fracture Acute encephalopathy -No significant leukocytosis ? UA within normal is within normal limits ?, Chest x-ray shows pulmonary edema ? CT head within normal limits ? Did receive Ambien last night, possible delirium related to adverse drug reaction, side effect -He did receive magnesium sulfate accidentally on Tuesday, which was stopped, after about 1/4 of it infused, doubt that this is likely why he is encephalopathic, will monitor ? Has had a prolonged hospitalization, possible delirium related to prolonged hospitalization, -Acute on chronic hyponatremia 124, watch serum sodiums every 4 hours Acute hypoxic respiratory failure -Secondary to pulm edema, fluid overload, systolic CHF -Possible component of lung emphysema Plan -Monitor in cardiac stepdown unit -Currently on room air, will consider BiPAP schedule during the night -Continue diuresis, monitor serum sodium, creatinine -Sodium 124, he is -6 L, on 2 L nasal cannula, will monitor, hold Lasix -s/p dose of Solu-Medrol -Monitor respiratory status closely -DuoNeb, budesonide -Full code -Lovenox for DVT prophylaxis Systolic CHF, acute exacerbation CONCLUSIONS ?1. Normal left ventricular cavity size. Moderately decreased ?left ventricular systolic function.? Left ventricular ejection ?fraction is estimated at 30-35 % visually and 41% by modified ?biplane method. Global left ventricular hypokinesis. ?2. Mild mitral valve regurgitation. ?3. Mild to moderate tricuspid valve regurgitation. ?4. When compared to study dated 05/30/2015, left regular ?systolic function seems to have decreased. Plan -Diuresis as above -Aspirin, statin -Etiology cardiac versus stress-induced cardiomyopathy, Zytiga -Cardiac stress test -?IMPRESSIONS ?1.? 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 No evidence of ischemia. ?2.? LV systolic function is moderate to severely reduced with EF of 36%.? ?Moderate to severe global hypokinesis is seen. -Denies chest pain Right-sided heart failure -Possibly secondary to underlying emphysema -CT angiogram negative for pulm embolism -We will continue diuresis as above Acalculous cholecystitis 1. No cholelithiasis. 2. Diffuse gallbladder wall thickening with adjacent pericholecystic fluid. This may be secondary to a calculus acute cholecystitis. Gallbladder wall thickening and pericholecystic fluid also can be related to hepatocellular disease. Additional causes of pericholecystic fluid include cirrhosis, congestive heart failure and ascites. 3. Small RIGHT pleural effusion. 4. Moderate hepatomegaly. 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 Acute anemia -Heparin stopped ? Continue aspirin for now ? Monitor hemoglobin ? Hemoccult stool negative Metastatic prostate cancer SSS, status post pacemaker Atrial fibrillation: Declined anticoagulation, on aspirin HTN: Monitor blood pressures HLD: Alzheimer's disease Full code As SCDs for DVT prophylaxis, lovenox Plan for today, follow serum sodium Attestations Medical Necessity Statement*: Patient requires hospitalization for hyponatremia, fluid overload, improving, monitoring serum sodium Coding Level of Care Code Acute Code for Chg Fwd Diagnoses Hyponatremia E87.1 Thrombocytopenia D69.6 Elevated LFTs R79.89 Status cardiac pacemaker Z95.0 HTN (hypertension) I10 Dyslipidemia E78.5 SSS (sick sinus syndrome) I49.5 Prostate cancer C61 Systolic CHF, acute I50.21 Right-sided heart failure I50.810 Cholecystitis without calculus K81.9 Bilateral pleural effusion J90 Emphysema of lung J43.9 Acute anemia D64.9 Acute encephalopathy G93.40 Physical deconditioning R53.81 Protein calorie malnutrition E46
[2023-02-16] MEDS: enoxaparin 40 mg/0.4 mL Syringe SUBCUT (15:53)
[2023-02-16] MEDS: nicotine 14 mg Patch 1 PATCH TRANSDERMA (16:08)
[2023-02-16 18:43] LABS: Sodium 126 mmol/L (136-145)
[2023-02-16 22:46] LABS: Sodium 124 mmol/L (136-145)
[2023-02-16 23:34] LABS: Fibrinogen Degradation Product 20 mcg/mL (LESS THAN 5)
[2023-02-16 23:34] LABS: Fibrinogen Degradation Product 80 mcg/mL (LESS THAN 5)
[2023-02-16 23:34] LABS: Fibrinogen Degradation Product 40 mcg/mL (LESS THAN 5)
[2023-02-16 23:34] LABS: Fibrinogen Degradation Product 40 mcg/mL (LESS THAN 5)
[2023-02-17] VITALS (12 sets, daily range): BP systolic 103–133; BP diastolic 56–79; PULSE 60–95; RESP 13–23; TEMP 36.3–37.1; O2SAT 91–97
[2023-02-17 02:04] LABS: Hematocrit 25.4 % (37-53); Mean Corpuscular HGB Conc 31.5 g/dL (30-55); Mean Corpuscular Hemoglobin 29.7 pg (27-33); Mean Corpuscular Volume 94.4 fl (82-101); Mean Platelet Volume 10.6 fL (7.4-10.4); Platelet Count 79 10^3/cmm (157-399); Red Blood Count 2.69 10^6/uL (3.85-5.65); Red Cell Distribution Width 16.1 % (12.1-15.1); White Blood Count 11.34 10^3/uL (3.29-11.43)
[2023-02-17 02:34] LABS: NT Pro B Type Natriuretic Pept 15496 pg/mL (0-450); Procalcitonin 0.18 ng/mL (0-0.5)
[2023-02-17 02:50] LABS: Alanine Aminotransferase 60 U/L (0-41); Albumin Level 2.8 g/dL (3.5-5.2); Alkaline Phosphatase 287 U/L (40-130); Anion Gap 13.1 (5-19); Aspartate Amino Transferase 131 U/L (0-40); Blood Urea Nitrogen 22 mg/dL (8-23); C Reactive Protein 104.6 mg/L (0.0-4.9); Calcium 8.1 mg/dL (8.5-10.5); Carbon Dioxide 27 mmol/L (22-29); Chloride 89 mmol/L (98-107); Globulin 2.3 g/dL (1.3-4.6); Glucose 109 mg/dL (65-115); Magnesium 1.6 mg/dL (1.7-2.3); Osmolality Calculated 264 mOsm/kg (285-295); Phosphorus 2.8 mg/dL (2.5-4.5); Potassium 4.1 mmol/L (3.5-5.1); Sodium 125 mmol/L (136-145); Total Bilirubin 0.8 mg/dL (0.15-1.2); Total Protein 5.1 g/dL (6.6-8.7)
[2023-02-17 02:51] LABS: Absolute Eosinophils 0.1 10^3/cmm (0.0-0.7); Absolute Segmented Neutrophil 9.4 10/cmm (1.6-7.1); Eosinophils 1 %; Lymphocytes 3 %; Monocytes Absolute 0.2 10^3/cmm (0.1-0.6); Platelet Estimate Decreased (Normal); Segmented Neutrophils 83 %; Slide Review Slide Review Perform; Total Cells Counted 100 (0-100)
[2023-02-17 06:40] LABS: Sodium 126 mmol/L (136-145)
[2023-02-17] MEDS: atorvastatin 40 mg Tablet 20 MG PO (08:21)
[2023-02-17] MEDS: metoprolol succinate ER (24 HR) 25 mg Tablet 75 MG PO (08:21)
[2023-02-17] MEDS: ciprofloxacin 500 mg Tablet PO ×2 (08:21→20:43)
[2023-02-17] MEDS: aspirin 81 mg EC Tablet PO (08:21)
[2023-02-17] MEDS: escitalopram 10 mg Tablet 5 MG PO (08:21)
[2023-02-17] MEDS: pantoprazole DR 40 mg Tablet PO ×2 (08:21→18:33)
[2023-02-17] MEDS: metroNIDAZOLE 500 MG Tablet PO ×3 (08:21→20:43)
[2023-02-17] MEDS: predniSONE 5 mg Tablet PO ×2 (08:22→18:33)
[2023-02-17] MEDS: nicotine 14 mg Patch 1 PATCH TRANSDERMA (08:22)
[2023-02-17] MEDS: budesonide 0.5 mg/2 mL Neb INHALATION (10:08)
[2023-02-17] MEDS: ipratropium-albuterol 3 mL Neb INHALATION ×3 (10:08→20:33)
--- NOTE | 2023-02-17 10:09 | PC.NURSE ---
physician orders to change nicotine patch from 14mg to 21mg starting tomorrow.
[2023-02-17 12:44] LABS: Sodium 126 mmol/L (136-145)
[2023-02-17] MEDS: enoxaparin 40 mg/0.4 mL Syringe SUBCUT (14:41)
--- NOTE | 2023-02-17 14:56 | PM.PN ---
Subjective Subjective: Patient was seen this morning, denies any fevers, no chills, no cough, family is at bedside, his serum sodiums are at 126, family do know that he has intermittent episodes of confusion, slurring his words, upon examination he is alert and oriented x3, following all commands, he does become drowsy, squeezes my fingers bilaterally, pupils equal round reactive to light, cranial nerves II to XII grossly intact, has equal strength bilaterally with no significant facial droop, we will continue to monitor, possibly symptomatic related to low sodium levels, but he is chronically hyponatremic, his baseline sodium is anywhere between 1 20-1 29, I Libby hold the Lexapro as a possible etiology Vitals/I&O/Wt Last Vital Signs Temp 98.8 F 02/17/23 11:57 Pulse 82 02/17/23 12:50 Resp 18 02/17/23 12:50 BP 113/63 02/17/23 11:57 Pulse Ox 96 02/17/23 12:50 O2 Del Method Nasal Cannula 02/17/23 12:50 O2 Flow Rate 3 02/17/23 12:50 02/16/23 02/17/23 02/17/23 22:59 06:59 14:59 Intake Total 660 / 1160 300 / 1460 240 / 240 Output Total 0 / 0 300 / 300 Balance 660 / 1160 300 / 1460 -60 / -60 Weight last 48 hrs Weight 70.896 kg Weight 71.271 kg Physical Exam Const: COMMON NORMALS: no acute distress and patient oriented x3 Resp: COMMON NORMALS: normal respiratory effort, No retractions, No use of accessory muscles and clear to auscultation bilaterally AUSCULTATION: clear to auscultation bilaterally Cardio: COMMON NORMALS: regular rate, regular rhythm, S1 normal heart sound present and S2 normal heart sound present RATE: regular rate RHYTHM: regular rhythm HEART SOUNDS: S1 normal heart sound present and S2 normal heart sound present GI: COMMON NORMALS: Normal to inspection, nondistended, normoactive bowel sounds present and non-tender Extremity: COMMON NORMALS: no pedal edema Neuro: COMMON NORMALS: patient oriented x3, CN's II-XII intact bilaterally, moves all extremities and no focal motor deficits Psych: COMMON NORMALS: mental status grossly normal Urinary Catheter Management: Amaro: Cath Placed During This Visit: yes, but has since been removed by the nurse Reason for Continuing Indwelling Catheter: Acute Urinary Retention or Obstruction Urinary Catheter Date of Insertion: 02/09/23 Urinary Catheter Time of Insertion: 23:04 Date Urinary Catheter Removed: 02/13/23 Time Urinary Catheter Discontinued: 00:00 Data 02/17/23 01:53 02/17/23 11:47 A&P Assessment and plan (1) Hyponatremia: (2) Thrombocytopenia: (3) Elevated LFTs: (4) Status cardiac pacemaker: (5) HTN (hypertension): (6) Dyslipidemia: (7) SSS (sick sinus syndrome): (8) Prostate cancer: (9) Systolic CHF, acute: (10) Right-sided heart failure: (11) Cholecystitis without calculus: (12) Bilateral pleural effusion: (13) Emphysema of lung: (14) Acute anemia: (15) Acute encephalopathy: (16) Physical deconditioning: (17) Protein calorie malnutrition: Plan Fall -Multiple x-rays no acute fracture Acute encephalopathy, resolving -No significant leukocytosis ? UA within normal is within normal limits ?, Chest x-ray shows pulmonary edema ? CT head within normal limits ? Did receive Ambien , possible delirium related to adverse drug reaction, side effect -He did receive magnesium sulfate accidentally on Tuesday, which was stopped, after about 1/4 of it infused, doubt that this is likely why he is encephalopathic, will monitor ? Has had a prolonged hospitalization, possible delirium related to prolonged hospitalization, -Acute on chronic hyponatremia 126 Acute hypoxic respiratory failure -Secondary to pulm edema, fluid overload, systolic CHF -Possible component of lung emphysema Plan -Monitor in cardiac stepdown unit -Currently on room air, will consider BiPAP schedule during the night -Continue diuresis, monitor serum sodium, creatinine -Sodium 124, he is -6 L, on 2 L nasal cannula, will monitor, hold Lasix -s/p dose of Solu-Medrol -Monitor respiratory status closely -DuoNeb, budesonide -Full code -Lovenox for DVT prophylaxis Systolic CHF, acute exacerbation CONCLUSIONS ?1. Normal left ventricular cavity size. Moderately decreased ?left ventricular systolic function.? Left ventricular ejection ?fraction is estimated at 30-35 % visually and 41% by modified ?biplane method. Global left ventricular hypokinesis. ?2. Mild mitral valve regurgitation. ?3. Mild to moderate tricuspid valve regurgitation. ?4. When compared to study dated 05/30/2015, left regular ?systolic function seems to have decreased. Plan -Diuresis as above -Aspirin, statin -Etiology cardiac versus stress-induced cardiomyopathy, Zytiga -Cardiac stress test -?IMPRESSIONS ?1.? 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 No evidence of ischemia. ?2.? LV systolic function is moderate to severely reduced with EF of 36%.? ?Moderate to severe global hypokinesis is seen. -Denies chest pain Right-sided heart failure -Possibly secondary to underlying emphysema -CT angiogram negative for pulm embolism -We will continue diuresis as above Acalculous cholecystitis 1. No cholelithiasis. 2. Diffuse gallbladder wall thickening with adjacent pericholecystic fluid. This may be secondary to a calculus acute cholecystitis. Gallbladder wall thickening and pericholecystic fluid also can be related to hepatocellular disease. Additional causes of pericholecystic fluid include cirrhosis, congestive heart failure and ascites. 3. Small RIGHT pleural effusion. 4. Moderate hepatomegaly. 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 Acute anemia -Heparin stopped ? Continue aspirin for now ? Monitor hemoglobin ? Hemoccult stool negative Metastatic prostate cancer SSS, status post pacemaker Atrial fibrillation: Declined anticoagulation, on aspirin HTN: Monitor blood pressures HLD: Alzheimer's disease Full code As SCDs for DVT prophylaxis, lovenox Plan for today, follow serum sodium Attestations Medical Necessity Statement*: Patient requires hospitalization for acute encephalopathy, low serum sodiums, will continue to monitor, hold [employer] Coding Level of Care Code Acute Code for Chg Fwd Diagnoses Hyponatremia E87.1 Thrombocytopenia D69.6 Elevated LFTs R79.89 Status cardiac pacemaker Z95.0 HTN (hypertension) I10 Dyslipidemia E78.5 SSS (sick sinus syndrome) I49.5 Prostate cancer C61 Systolic CHF, acute I50.21 Right-sided heart failure I50.810 Cholecystitis without calculus K81.9 Bilateral pleural effusion J90 Emphysema of lung J43.9 Acute anemia D64.9 Acute encephalopathy G93.40 Physical deconditioning R53.81 Protein calorie malnutrition E46
--- NOTE | 2023-02-17 15:17 | CTR_ITS ---
PROCEDURE INFORMATION: Exam: CT Head Without Contrast Exam date and time: 02/17/2023 4:10 PM Age: 82 years old Clinical indication: Altered mental status/memory loss; Additional info: AMS TECHNIQUE: Imaging protocol: Computed tomography of the head without contrast. Radiation optimization: All CT scans at this facility use at least one of these dose optimization techniques: automated exposure control; mA and/or kV adjustment per patient size (includes targeted exams where dose is matched to clinical indication); or iterative reconstruction. REPORTING DATA: Count of CT and Cardiac NM exams in prior 12 months: This patient has received 6 known CTs and 0 known cardiac nuclear medicine studies in the 12 months prior to the current study. COMPARISON: CT head wo con* [id number] 02/13/2023 10:05 AM RADIATION DOSE METRICS: Total DLP (mGy-cm): 1095 FINDINGS: Brain: Mild parenchymal volume loss. Moderate bilateral periventricular and subcortical white matter hypodensities are present compatible with small-vessel ischemic disease. No midline shift. No mass, acute infarct, hemorrhage, or extra-axial fluid collection. Cerebral ventricles: No ventriculomegaly. Paranasal sinuses: Visualized sinuses are unremarkable. No fluid levels. Mastoid air cells: Visualized mastoid air cells are well aerated. Bones/joints: Unremarkable. No acute fracture. Soft tissues: Unremarkable. CT/CT head wo con* [id number] IMPRESSION: No acute intracranial abnormality.
--- NOTE | 2023-02-17 16:52 | PC.OT ---
OT TREATMENT ATTEMPTED; PATIENT SLEEPING SOUNDLY.
[2023-02-17 18:33] LABS: Sodium 126 mmol/L (136-145)
[2023-02-17] MEDS: magnesium lactate 84 mg Tablet PO (18:33)
[2023-02-18] VITALS (7 sets, daily range): BP systolic 98–124; BP diastolic 58–75; PULSE 61–96; RESP 16–23; TEMP 36.4–36.7; O2SAT 88–94
--- NOTE | 2023-02-18 | XRR_ITS ---
[facility] Final Radiology Report Call: [phone] assistance Online chat: [email or web address] Name: EZEQUIEL BAE Age: 82Years M Date: 02/18/2023 SSN: -- : 1940 Study: XR CHEST 1 VIEW Requesting Physician: JUAN MADRID Images: 1 Add?l Studies: Provided Clinical History: sob PROCEDURE INFORMATION: Exam: XR Chest Exam date and time: 02/18/2023 9:11 AM Age: 82 years old Clinical indication: Shortness of breath; Prior surgery; Surgery date: 6+ months; Surgery type: Appy, pacemaker, lt hip; Patient HX: Cancer (type)--prostate, bone, lymph nodes; Additional info: SOB TECHNIQUE: Imaging protocol: Radiologic exam of the chest. Views: 1 view. COMPARISON: CR XR chest 1V portable [id number] 02/15/2023 9:57 AM FINDINGS: Tubes, catheters and devices: Multi lead pacemaker/defibrillator. Lungs: Hypoventilatory changes in the lower lobes. Moderate interstitial prominence. This is unchanged and appears chronic. Pleural spaces: Unremarkable. No pleural effusion. No pneumothorax. Heart/Mediastinum: See Vasculature finding. Vasculature: Mild cardiomegaly and uncoiling of the thoracic aorta. Bones/joints: Evidence of prior surgery involving the proximal left humerus. IMPRESSION: No acute cardiopulmonary disease. No significant change. Thank you for allowing us to participate in the care of your patient. Dictated and Authenticated by: Demario Mesa MD EZEQUIEL BAE Final Radiology Report CONFIDENTIALITY STATEMENT MTDD
[2023-02-18 03:41] LABS: Basophils # 0.1 10^3/uL (0.0-0.1); Basophils % 0.4 %; Eosinophils # 0.1 10^3/uL (0.0-0.8); Eosinophils % 0.5 %; Hematocrit 26.5 % (37-53); Lymphocytes % 16.7 %; Mean Corpuscular HGB Conc 31.7 g/dL (30-55); Mean Corpuscular Hemoglobin 29.5 pg (27-33); Mean Platelet Volume 10.8 fL (7.4-10.4); Monocytes # 0.8 10^3/uL (0.2-0.9); Monocytes % 7.1 %; Neutrophils % 61.2 %; Nucleated Red Blood Cells # 0.2 /100WBC; Nucleated Red Blood Cells % 1.4 %; Platelet Count 81 10^3/cmm (157-399); Red Blood Count 2.85 10^6/uL (3.85-5.65); Red Cell Distribution Width 16.2 % (12.1-15.1); White Blood Count 11.77 10^3/uL (3.29-11.43)
[2023-02-18 03:59] LABS: Slide Review Slide Review Perform
[2023-02-18 04:02] LABS: Alanine Aminotransferase 57 U/L (0-41); Albumin Level 2.9 g/dL (3.5-5.2); Alkaline Phosphatase 356 U/L (40-130); Anion Gap 17.3 (5-19); Aspartate Amino Transferase 144 U/L (0-40); Blood Urea Nitrogen 32 mg/dL (8-23); C Reactive Protein 132.9 mg/L (0.0-4.9); Carbon Dioxide 27 mmol/L (22-29); Chloride 88 mmol/L (98-107); Globulin 2.4 g/dL (1.3-4.6); Glucose 113 mg/dL (65-115); Magnesium 1.9 mg/dL (1.7-2.3); Osmolality Calculated 274 mOsm/kg (285-295); Phosphorus 3.6 mg/dL (2.5-4.5); Potassium 4.3 mmol/L (3.5-5.1); Sodium 128 mmol/L (136-145); Total Protein 5.3 g/dL (6.6-8.7)
[2023-02-18 04:11] LABS: NT Pro B Type Natriuretic Pept 14993 pg/mL (0-450); Procalcitonin 0.33 ng/mL (0-0.5)
[2023-02-18] MEDS: ipratropium-albuterol 3 mL Neb INHALATION ×2 (08:15→11:07)
[2023-02-18] MEDS: budesonide 0.5 mg/2 mL Neb INHALATION (08:15)
[2023-02-18] MEDS: magnesium lactate 84 mg Tablet PO (08:49)
[2023-02-18] MEDS: metoprolol succinate ER (24 HR) 25 mg Tablet 75 MG PO (08:49)
[2023-02-18] MEDS: predniSONE 5 mg Tablet PO (08:49)
[2023-02-18] MEDS: aspirin 81 mg EC Tablet PO (08:50)
[2023-02-18] MEDS: atorvastatin 40 mg Tablet 20 MG PO (08:50)
[2023-02-18] MEDS: metroNIDAZOLE 500 MG Tablet PO (08:50)
[2023-02-18] MEDS: nicotine 21 mg Patch 1 PATCH TRANSDERMA (08:50)
[2023-02-18] MEDS: pantoprazole DR 40 mg Tablet PO (08:50)
[2023-02-18] MEDS: tamsulosin 0.4 mg Capsule PO (08:50)
[2023-02-18] MEDS: ciprofloxacin 500 mg Tablet PO (08:50)
--- NOTE | 2023-02-18 08:53 | XRR_ITS ---
NOTE: Report was unsigned for reason: Order was edited. Original Signature date and time was: 02/18/2023 15[address] [facility] [address] [place] [address] XRay Report Signed Patient: Ezequiel Regalado Unit #: [id number] : [id number] Age/Sex: 82 / M ADM Date: 02/10/23 Loc: U Room/Bed: [facility] Attending Dr: Eulalio Mata MD Ordering Provider/Ordering MD: Eulalio Mata MD Date of Service: 02/18/23 Procedure(s): XR chest 1V portable [id number] Accession Number(s): [id number] Report Number: [id number] [facility] Final Radiology Report Call: [phone] assistance Online chat: [email or web address] Name: EZEQUIEL REGALADO Age: 82Years M Date: 02/18/2023 SSN: -- : 1940 Study: XR CHEST 1 VIEW Requesting Physician: EULALIO MATA Images: 1 Add?l Studies: Provided Clinical History: sob PROCEDURE INFORMATION: Exam: XR Chest Exam date and time: 02/18/2023 9:11 AM Age: 82 years old Clinical indication: Shortness of breath; Prior surgery; Surgery date: 6+ months; Surgery type: Appy, pacemaker, lt hip; Patient HX: Cancer (type)--prostate, bone, lymph nodes; Additional info: SOB TECHNIQUE: Imaging protocol: Radiologic exam of the chest. Views: 1 view. COMPARISON: CR XR chest 1V portable [id number] 02/15/2023 9:57 AM FINDINGS: Tubes, catheters and devices: Multi lead pacemaker/defibrillator. Lungs: Hypoventilatory changes in the lower lobes. Moderate interstitial prominence. This is unchanged and appears chronic. Pleural spaces: Unremarkable. No pleural effusion. No pneumothorax. Heart/Mediastinum: See Vasculature finding. Vasculature: Mild cardiomegaly and uncoiling of the thoracic aorta. Bones/joints: Evidence of prior surgery involving the proximal left humerus. IMPRESSION: No acute cardiopulmonary disease. No significant change. Thank you for allowing us to participate in the care of your patient. Dictated and Authenticated by: Demario Mesa MD LIPPER, ROBERT Final Radiology Report CONFIDENTIALITY STATEMENT Dictated By:DOCTOR NOT ON FILE Signed By: DOCTOR NOT ON FILE Signed Date/Time: 02/18/23 155 5 DD/ 1552 [facility]ENTERAndreea
[2023-02-18 10:17] LABS: SARS Covid-2 Antigen negative (Negative)
--- NOTE | 2023-02-18 10:31 | PM.DCS ---
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 Baseline troponin 35, 2-hour troponin 33.2.? Additionally noted new transaminitis, AST 228, ALT 178, alk phos 356.? Hyponatremia sodium 126.? Mild leukocytosis 11.8, but with neutrophilia, 1% bands, 3% myelocytes, 2% metamyelocytes and with new thrombocytopenia, platelets 91.? Chronic anemia hemoglobin at 10.? INR 1.75 Chest x-ray with hyperinflation.? UA with 5-10 RBC, 0-4 WBC, negative nitrate, trace bacteria. This is a 82-year-old male, who presents [facility], patient had a complicated hospital course, please look at my last progress note for further detail, I will summarize his hospitalization below Patient was admitted to [facility] for acute hypoxic respiratory failure, secondary to pulm edema, fluid overload, systolic CHF, right-sided heart failure with underlying lung emphysema. Patient received steroid therapy, received diuresis, overall clinically improve respiratory crocker, on discharge lungs clear to auscultation bilaterally, minimal pitting edema, -6 L, on 3 L on discharge. In terms of diuresis, discharged on Lasix and potassium therapy as needed as needed, diuresis has been difficult with his acute on chronic hyponatremia, so if he is diuresed as outpatient, he needs his serum sodium monitored very closely For acute systolic CHF, EF is 30 to 35%, with no chest pain complaints, underwent stress testing -?IMPRESSIONS ?1.? 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 No evidence of ischemia. ?2.? LV systolic function is moderate to severely reduced with EF of 36%.? ?Moderate to severe global hypokinesis is seen. -Because of diminished ejection fraction, likely secondary to abiraterone, which patient recently started in the last 2 months, ? However underlying CAD is certainly a possibility given his age and his risk factors, and his current history of smoking ? Had extensive discussion with patient and his family, for now we will hold the abiraterone, have patient follow-up with cardiology in 2 to 4 weeks, repeat echocardiogram, and monitor ejection fraction ? If he continues to have diminished ejection fraction, or he has any chest pain complaints can consider coronary angiography Patient had right-sided heart failure on echocardiogram, likely secondary to patient's history of emphysema, likely component of pulmonary hypertension, patient has a history of smoking and is a current smoker, Patient has evidence of emphysema, right-sided heart failure, all evidence of underlying pulmonary hypertension, received steroids during his hospitalization, will be discharged with a close follow-up with pulmonary as outpatient Patient also had acalculus cholecystitis, during his hospitalization, with elevated LFTs, some of this could be from his right-sided heart failure, resulting in cardiac hepatic congestion, but given his diffuse gallbladder wall thickening, pericholecystic fluid, he was managed with antibiotic therapy, will be discharged on 5 more days of p.o. antibiotic therapy, follow-up with general surgery as outpatient For his transaminitis, elevated INR, elevated alk phos, could be from cardiac hepatic congestion, and or from cholecystitis, will be need to be monitored as outpatient Patient has metastatic prostate cancer to the bone, after extensive discussion with oncology, and given patient's new onset heart failure, decision was made to hold abiraterone, until patient follows up with oncology. In terms of Lupron, denosumab, I had extensive discussion with patient and family about issues of residential facility taking patient on these medications. Patient's family really wanted him to go to residential facility to receive rehab and care, unfortunately his medications were a hindrance for him to go to residential facility. I had an extensive discussion with the patient and his family about holding these medications while he goes to the rehab facility, there is a risk of progression of his cancer, and morbidity mortality associated although I think the risk is fairly low if he hold it for 2 to 4 weeks, but low risk does not mean no risk. There is also risk of increased related cancer related pain. I also spoke to oncology, and got their opinion about holding the medication, and they agree that in this circumstance, holding it for patient to receive rehab at residential facility would be reasonable if patient and family agrees, understands risk and benefits, and they can follow-up with patient in the near future, and discuss either continue to hold medication or resuming. After discussing risks and benefits, patient and family voiced understanding, all questions answered, agreed to hold medications as above, so patient's receives residential care, and, follow-up with hematology oncology as outpatient for decision to when and if to resume He has a history of atrial fibrillation, managed with aspirin, he has declined anticoagulation, and in addition his anemia is a hindrance to him being on anticoagulant therapy Patient had acute anemia during his hospitalization, given his atrial fibrillation, he was managed on a heparin drip and his NSTEMI was on heparin drip however his hemoglobin dropped such that anticoagulation had to be stopped, he is Hemoccult stool is negative, but with his persistent anemia, his risk of falls, anticoagulation will be stopped for now. Decision when and if to resume anticoagulation will depend on discussion with patient and family. Currently on aspirin 81 mg. Patient understands that even on aspirin 81 mg she has a risk of strokes, after discussing the risk and benefits, he voiced understanding, all question answered, shared decision making, agreed to continue to hold anticoagulation for now continue aspirin 81 mg. For patient's acute encephalopathy -In terms of encephalopathy, most of his encephalopathy with clear out during the afternoon in the evening time, it is more prevalent early in the morning, he does have significant sundowning episodes Patient's hospital course was complicated by persistent encephalopathy, I think that the etiology behind his encephalopathy is complicated and multifactorial, ? According to family before his hospitalization he was independent, he could drive, he could carry out more of this is functioning ? But according to family, he would sleep during the day, takes naps during the day he does not really sleep during the night ? I think a component of his encephalopathy is underlying dementia, that worsened with his prolonged hospitalization ? In addition acute on chronic hyponatremia his serum sodium did decrease to 124 during his hospitalization with diuresis therapy certainly Lexapro and fluoxetine could play a role, which have been discontinued on discharge, but his serum sodiums have been difficult to manage, on discharge they have improved to 128 which is about near his baseline, which is 1 29-1 30 ? I did not attempt to correct his serum sodium, due to risk of fluid overload, and complications associated with correcting hyponatremia, I held anticoagulation for 48 hours, and patient serum sodium improved to 128 on its own, that is my worry as outpatient if he becomes fluid overloaded, and we try to anticoagulate him the issue will be, his hyponatremia ? The other thought is he has episodes of confusion, intermittent episodes of slurring his words, could these be TIA episodes associated with his atrial fibrillation? as he is not on anticoagulation given his anemia, and his risk of falls, I have done multiple CTs of his hands during his hospitalization, there is no evidence of acute stroke, I cannot do an MRI given his pacemaker, on discharge she is alert oriented x3, following all commands, no focal neurologic deficits, he does have intermittent episodes of drowsiness, but I cannot discern any focal neurologic deficits. Putting him on anticoagulation as above has been proven to be complicated, given the issue of anemia and his recurrent falls, in my opinion at this time his risk of further anemia, morbidity and mortality associated, risk of falls and morbidity and mortality associated is greater than currently that is a risk of a stroke, but low risk does not mean no risk, certainly this is a complicated and difficult situation, and I have gone over this in detail with patient and his family, but for now we will can continue aspirin 81 mg once daily ? Certainly his cholecystitis could also be playing a role he is on antibiotics, -I think a significant component of his confusion is alteration of his sleep-wake cycles, he normally stays awake most of the night, naps during the day, and here in the hospital, that came to fruition, usually in the morning he was quite drowsy, but in the afternoon and evening time he would be alert and awake,, following all commands, and he would be awake at times during the night, unfortunately medications do help with his sleep have had complications, and I would recommend against him ? I have gone over the complicated situation regarding his encephalopathy with family as above, it is a complicated situation, and there might be many contributing factors, but I think the biggest contributing factor is his deconditioning, his underlying dementia, at his alteration of sleep-wake cycles and his prolonged hospitalization leading to his confusion During his hospitalization, patient received Ambien and one of the nights to help with his sleep, and in the morning, he was confused, and unfortunately had a fall, fall was closely examined by nursing staff, and I did a chao CT scan of his head, of his hips, without any acute fracture findings, no head ache, no loss of consciousness, no acute bleeding. thus, I would recommend patient not receive any sedating medications in the near future, as it is associate with a high risk of falls and confusion inpatient During his hospitalization, patient was accidentally given magnesium sulfate instead of heparin drip, his magnesium was monitored thereafter, respiration, was monitored thereafter, no significant complications, I was told by nursing staff that he received quarter of the magnesium sulfate, I went over this in detail with family, I apologized for the mistake, they were concerned that it might play a role to his mentation, I think it is fairly unlikely especially as later on his hospitalization his magnesium levels were on the lower end, and he needed magnesium replacement, they voiced understanding, all questions answered, For patient's prostate cancer with metastatic disease to the bone, please follow-up with oncology in 2 to 4 weeks, we are holding patient's cancer medications abiraterone, Lupron, denosumab Physical Exam Const: COMMON NORMALS: no acute distress and patient oriented x3 Resp: COMMON NORMALS: normal respiratory effort, No retractions, No use of accessory muscles and clear to auscultation bilaterally AUSCULTATION: clear to auscultation bilaterally Cardio: COMMON NORMALS: regular rate, regular rhythm, S1 normal heart sound present and S2 normal heart sound present RATE: regular rate RHYTHM: regular rhythm HEART SOUNDS: S1 normal heart sound present and S2 normal heart sound present GI: COMMON NORMALS: Normal to inspection, nondistended, normoactive bowel sounds present and non-tender Extremity: COMMON NORMALS: capillary refill normal Neuro: COMMON NORMALS: patient oriented x3 Psych: COMMON NORMALS: mental status grossly normal Urinary Catheter Management: Amaro: Cath Placed During This Visit: yes, but has since been removed by the nurse Reason for Continuing Indwelling Catheter: Acute Urinary Retention or Obstruction Urinary Catheter Date of Insertion: 02/09/23 Urinary Catheter Time of Insertion: 23:04 Date Urinary Catheter Removed: 02/13/23 Time Urinary Catheter Discontinued: 00:00 Discharge Data Studies Completed and Pending Completed Studies During Hospitalization Category Date Time Status CT abdomen pelvis wo con [id number] Stat Cat Scan 02/15/23 09:[address] head wo con* [id number] Routine Cat Scan 02/13/23 09:[address] head wo con* [id number] Routine Cat Scan 02/17/23 15:17 Completed CTA chest [CT angio chest [id number]] Stat Cat Scan 02/09/23 22:39 Completed Sestamibi Stress Test Request Routine Exams 02/13/23 14:44 Draft XR chest 1V [id number] Stat Exams 02/09/23 20:55 Completed XR chest 1V portable [id number] Routine Exams 02/13/23 09:03 Completed XR chest 1V portable [id number] Routine Exams 02/15/23 09:40 Completed XR chest 1V portable [id number] Stat Exams 02/10/23 15:39 Completed XR hip BI 2V wo/[place] [id number] Routine Exams 02/13/23 08:39 Completed XR knee LT 1-2V [id number] Routine Exams 02/13/23 09:04 Completed XR knee RT 1-2V [id number] Routine Exams 02/13/23 09:04 Completed XR lumbar spine 2-3V* [id number] Routine Exams 02/13/23 08:39 Completed NM aida perf SPECT r/s* [id number] Routine Nuc Med 02/14/23 14:44 [place] [id number] Routine Ultrasound 02/09/23 23:52 Completed CV. echo complete* [id number] Routine Ultrasound 02/10/23 01:49 Completed US abdomen limited [id number] Routine Ultrasound 02/10/23 08:32 Completed Pending at discharge Category Date Time Status XR chest 1V portable [id number] Routine Exams 02/18/23 08:53 Taken Blood Culture Stat Lab 02/14/23 10:40 Results C Reactive Protein AM LABS Lab 02/19/23 04:00 Ordered Complete Blood Count w/Auto AM LABS Lab 02/19/23 04:00 Ordered Comprehensive Metabolic Panel AM LABS Lab 02/19/23 04:00 Ordered Magnesium AM LABS Lab 02/19/23 04:00 Ordered NT Pro B Type Natriuretic Pept QAM Lab 02/19/23 06:00 Ordered Phosphorus AM LABS Lab 02/19/23 04:00 Ordered Procalcitonin AM LABS Lab 02/19/23 04:00 Ordered Urinalysis Routine Lab 02/18/23 08:53 Uncollected Radiology Impressions Chest CTA 02/09/23 22:39 IMPRESSION: 1. No large or central pulmonary embolism. Contrast bolus is suboptimal for exclusion of small or peripheral emboli. 2. Bilateral pleural effusions without loculation. Body wall edema. Low volume ascites. Findings are concerning for right heart failure. 3. 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 4. Extensive sclerotic osseous metastatic disease. Hip/Pelvis X-Ray 02/13/23 08:39 IMPRESSION: No acute findings. Lumbar Spine X-Ray 02/13/23 08:39 IMPRESSION: Severe multilevel spondylosis and mild scoliosis. Knee X-Ray 02/13/23 09:04 IMPRESSION: No acute findings. Head CT 02/17/23 15:17 IMPRESSION: No acute intracranial abnormality. Laboratory Results WBC 11.77 10^3/uL (3.29-11.43) H 02/18/23 03:26 RBC 2.85 10^6/uL (3.85-5.65) L 02/18/23 03:26 Hgb 8.40 g/dL (11.27-16.99) L 02/18/23 03:26 Hct 26.5 % (37-53) L 02/18/23 03:26 MCV 93.0 fl (82-101) 02/18/23 03:26 MCH 29.5 pg (27-33) 02/18/23 03:26 MCHC 31.7 g/dL (30-55) 02/18/23 03:26 RDW 16.2 % (12.1-15.1) H 02/18/23 03:26 Plt Count 81 10^3/cmm (157-399) L 02/18/23 03:26 MPV 10.8 fL (7.4-10.4) H 02/18/23 03:26 Neut % (Auto) 61.2 % 02/18/23 03:26 Lymph % (Auto) 16.7 % 02/18/23 03:26 Placer % (Auto) 7.1 % 02/18/23 03:26 Eos % (Auto) 0.5 % 02/18/23 03:26 Baso % (Auto) 0.4 % 02/18/23 03:26 Neut # (Auto) 7.20 10^3/uL (1.8-7.7) 02/18/23 03:26 Lymph # (Auto) 2.0 10^3/uL (0.8-4.8) 02/18/23 03:26 Placer # (Auto) 0.8 10^3/uL (0.2-0.9) 02/18/23 03:26 Eos # (Auto) 0.1 10^3/uL (0.0-0.8) 02/18/23 03:26 Baso # (Auto) 0.1 10^3/uL (0.0-0.1) 02/18/23 03:26 Nucleated RBC % (auto) 1.4 % 02/18/23 03:26 Total Counted 100 (0-100) 02/17/23 01:53 Atypical Lymphs % Not Reportable 02/17/23 01:53 Absolute Neutrophils 11.4 10^3/cmm (1.4-6.5) H 02/12/23 04:27 Segmented Neutrophils 83 % 02/17/23 01:53 Abs Segm Neuts (Man) 9.4 10/cmm (1.6-7.1) H 02/17/23 01:53 Band Neutrophils Not Reportable 02/17/23 01:53 Abs Band Neuts (Man) 0.3 10^3/cmm (0.0-1.2) 02/12/23 04:27 Absolute Lymphocytes 0.8 10^3/cmm (1.2-3.4) L 02/12/23 04:27 Lymphocytes (Manual) 3 % 02/17/23 01:53 Monocytes (Manual) 2.0 % 02/17/23 01:53 Absolute Monocytes 0.2 10^3/cmm (0.1-0.6) 02/17/23 01:53 Eosinophils (Manual) 1 % 02/17/23 01:53 Absolute Eosinophils 0.1 10^3/cmm (0.0-0.7) 02/17/23 01:53 Basophils (Manual) 0.0 % 02/17/23 01:53 Absolute Basophils 0.0 10^3/cmm (0.0-0.2) 02/17/23 01:53 Metamyelocytes 1.0 % 02/17/23 01:53 Myelocytes 6.0 % 02/17/23 01:53 Promyelocytes 1.0 % 02/17/23 01:53 Nucleated RBCs 3.0 /100WBC (0-1) H 02/17/23 01:53 Nucleated RBCs # 0.2 /100WBC 02/18/23 03:26 Platelet Estimate Decreased (Normal) 02/17/23 01:53 Peripher Smr Path Cons Sent for review 02/09/23 21:00 PT 18.30 SECONDS (12.1-14.9) H 02/12/23 04:27 INR 1.47 (0.8-1.2) H 02/12/23 04:27 APTT 46.6 SECONDS (23.9-36.7) H 02/12/23 07:09 Fibrinogen 271 mg/dL (174-498) 02/12/23 04:27 Fibrin Degrad Products 20 mcg/mL (LESS THAN 5) H 02/12/23 04:56 D-Dimer 13.04 ug/mLFEU (0-0.59) H 02/12/23 04:27 Specimen Type Arterial 02/10/23 15:53 Sample Site Radial, right 02/10/23 15:53 ABG pH 7.50 (7.35-7.45) H 02/10/23 15:53 ABG pCO2 27.5 mmHg (35-45) L 02/10/23 15:53 ABG pO2 77.3 mmHg (80.0-100.0) L 02/10/23 15:53 ABG HCO3 21.5 mmol/L (22-26) L 02/10/23 15:53 ABG O2 Saturation 95.4 02/10/23 15:53 ABG Base Excess -0.8 mmol/L (-2.0-2.0) 02/10/23 15:53 Jonas Test Pos 02/10/23 15:53 A-a O2 Gradient 4.8 mmHg (5-10) L 02/10/23 15:53 Hematocrit 31.5 % (42-52) L 02/10/23 15:53 Hgb O2 Saturation 94.0 % (95-100) L 02/10/23 15:53 Carboxyhemoglobin 0.8 %THgb (0.4-20.1) 02/10/23 15:53 Methemoglobin 0.6 % (0.4-1.5) 02/10/23 15:53 Total Hemoglobin 10.3 g/dL (14-18) L 02/10/23 15:53 Sodium 128.0 mmol/L (131-143) L 02/10/23 15:53 Potassium 3.8 mmol/L (3.5-5.0) 02/10/23 15:53 Glucose 108.0 mg/dL (70-115) 02/10/23 15:53 Ionized Calcium 1.1 mmol/L (1.1-1.4) 02/10/23 15:53 O2 Delivery Device Nc 02/10/23 15:53 O2 Liters/Min 4.0 % 02/10/23 15:53 Septic Pump Truck Driver ID Boyd 02/10/23 15:53 Sodium 128 mmol/L (136-145) L 02/18/23 03:26 Potassium 4.3 mmol/L (3.5-5.1) 02/18/23 03:26 Chloride 88 mmol/L (98-107) L 02/18/23 03:26 Carbon Dioxide 27 mmol/L (22-29) 02/18/23 03:26 Anion Gap 17.3 (5-19) 02/18/23 03:26 BUN 32 mg/dL (8-23) H 02/18/23 03:26 Creatinine 1.2 mg/dL (0.7-1.2) 02/18/23 03:26 GFR Calculation Not Reportable 02/18/23 03:26 Glucose 113 mg/dL (65-115) 02/18/23 03:26 Calculated Osmolality 274 mOsm/kg (285-295) L 02/18/23 03:26 Calcium 8.0 mg/dL (8.5-10.5) L 02/18/23 03:26 Phosphorus 3.6 mg/dL (2.5-4.5) 02/18/23 03:26 Magnesium 1.9 mg/dL (1.7-2.3) 02/18/23 03:26 Iron 44 ug/dL (59-158) L 02/12/23 12:55 Iron Cancelled 02/12/23 12:55 TIBC 279 mcg/dl 02/12/23 12:55 % Saturation 15.7 % (20-50) L 02/12/23 12:55 Unsat Iron Binding 235 ug/dL (112-347) 02/12/23 12:55 Ferritin 579 ng/mL (30-400) H 02/12/23 12:55 Total Bilirubin 1.0 mg/dL (0.15-1.2) 02/18/23 03:26 AST 144 U/L (0-40) H 02/18/23 03:26 ALT 57 U/L (0-41) H 02/18/23 03:26 Alkaline Phosphatase 356 U/L (40-130) H 02/18/23 03:26 Creatine Kinase 451 U/L (39-308) H* 02/11/23 01:35 Troponin T Baseline 61 ng/L (0-15) H 02/10/23 16:07 Troponin T 120 Minute 63.73 ng/L (0-15) H 02/10/23 18:17 Delta Troponin T 2.73 ABS# (0-10) 02/10/23 18:17 Troponin T Hi Sens 6Hr 54.35 ng/L (0-15) H 02/10/23 22:01 Troponin T Hi Sens 6Hr Delta -6.65 ng/L (0-12) L 02/10/23 22:01 C-Reactive Protein 132.9 mg/L (0.0-4.9) H 02/18/23 03:26 NT-Pro-B Natriuret Pep 21713 pg/mL (0-450) H 02/18/23 03:26 Total Protein 5.3 g/dL (6.6-8.7) L 02/18/23 03:26 Albumin 2.9 g/dL (3.5-5.2) L 02/18/23 03:26 Globulin 2.4 g/dL (1.3-4.6) 02/18/23 03:26 Procalcitonin 0.33 ng/mL (0-0.5) 02/18/23 03:26 Urine Color Yellow (Yellow) 02/13/23 08:43 Urine Appearance Clear (CLEAR) 02/13/23 08:43 Urine pH 6.5 (5-7) 02/13/23 08:43 Ur Specific Laura 1.005 (1.005-1.030) 02/13/23 08:43 Urine Protein Neg (Negative) 02/13/23 08:43 Urine Glucose (UA) Norm (Normal) 02/13/23 08:43 Urine Ketones Negative (Negative) 02/13/23 08:43 Urine Blood Neg (Negative) 02/13/23 08:43 Urine Nitrate Negative (Negative) 02/13/23 08:43 Urine Bilirubin Neg (Negative) 02/13/23 08:43 Urine Urobilinogen 1 mg/dL (Negative) H 02/13/23 08:43 Ur Leukocyte Esterase 1+ (Negative) H 02/13/23 08:43 Urine RBC None /hpf (0-2) 02/13/23 08:43 Urine WBC 5-10 /hpf (0-5) H 02/13/23 08:43 Ur Squamous Epith Cells 0-4 /hpf (0-5) H 02/13/23 08:43 Ur Transition Epith Cell 0-4 /hpf 02/09/23 22:06 Amorphous Sediment Not Reportable 02/13/23 08:43 Urine Bacteria Trace /hpf (NONE) 02/13/23 08:43 Urine Mucus 2+ /hpf 02/09/23 22:06 Nasal Influ A H1 2009 PCR Not detected (NOT DETECT) 02/09/23 23:49 Adenovirus (PCR) Not detected (NOT DETECT) 02/09/23 23:49 C. pneumoniae DNA (PCR) Not detected (NOT DETECT) 02/09/23 23:49 Coronavirus 229E (PCR) Not detected (NOT DETECT) 02/09/23 23:49 Human Metapneumovir PCR Not detected (NOT DETECT) 02/09/23 23:49 Influenza A (H1) PCR Not detected (NOT DETECT) 02/09/23 23:49 Influenza A (H3) PCR Not detected (NOT DETECT) 02/09/23 23:49 Influenza Type A (PCR) Not detected (NOT DETECT) 02/09/23 23:49 Influenza Type B (PCR) Not detected (NOT DETECT) 02/09/23 23:49 M. pneumoniae (PCR) Not detected (NOT DETECT) 02/09/23 23:49 Parainfluenza 1 (PCR) Not detected (NOT DETECT) 02/09/23 23:49 Parainfluenza 2 (PCR) Not detected (NOT DETECT) 02/09/23 23:49 Parainfluenza 3 (PCR) Not detected (NOT DETECT) 02/09/23 23:49 Parainfluenza 4 (PCR) Not detected (NOT DETECT) 02/09/23 23:49 RSV Type A (PCR) Not detected (NOT DETECT) 02/09/23 23:49 RSV Type B (PCR) Not detected (NOT DETECT) 02/09/23 23:49 Entero/Rhino (PCR) Not detected (NOT DETECT) 02/09/23 23:49 SARS-CoV-2 (PCR) Not detected (NOT DETECT) 02/09/23 23:49 SARS-CoV-2 Ag (Rapid) negative (Negative) 02/18/23 09:30 Vitals Last Vital Signs Temp 98.0 F 02/18/23 04:00 Pulse 95 02/18/23 08:16 Resp 16 02/18/23 08:16 BP 124/75 02/18/23 07:56 Pulse Ox 92 02/18/23 08:16 O2 Del Method Nasal Cannula 02/18/23 08:16 O2 Flow Rate 3 02/18/23 08:16 FiO2 3 02/17/23 20:33 Discharge Plan Discharge Patient Disposition: Xfer SNF Condition: Stable Prescriptions: New ciprofloxacin HCl 500 mg Tablet 500 mg PO BID@0900,2100 5 Days Qty: 10 0RF Magtab 84 mg Tablet Extended Release 84 mg PO DAILY 30 Days Qty: 30 0RF metronidazole 500 mg Tablet 500 mg PO TID 30 Days Qty: 90 0RF nicotine 21 mg/24 hr Patch 24 Hour 1 patch transdermal DAILY 28 Days Qty: 28 0RF Lasix 40 mg tablet 40 mg PO DAILY PRN (Reason: for sob or edema or weight gain more than 3lbs) 30 Days Qty: 30 0RF Klor-Con M20 20 mEq tablet,ER particles/crystals 20 meq PO DAILY PRN (Reason: use with lasix only) 30 Days Qty: 30 0RF Continued omeprazole 40 mg capsule,delayed release(DR/EC) 40 mg PO DAILY simvastatin 20 mg tablet 20 mg PO DAILY montelukast [Singulair] 10 mg tablet 10 mg PO DAILY aspirin [Adult Low Dose Aspirin] 81 mg tablet,delayed release (DR/EC) 81 mg PO DAILY acetaminophen 500 mg capsule 500 mg PO DAILY PRN (Reason: Pain) tamsulosin 0.4 mg capsule 0.4 mg PO BID PRN (Reason: URINE FLOW) ascorbic acid (vitamin C) [Vitamin C] 500 mg capsule, extended release 500 mg PO DAILY cholecalciferol (vitamin D3) 10 mcg (400 unit) capsule 10 mcg PO DAILY metoprolol succinate 50 mg tablet extended release 24 hr 75 mg PO DAILY Qty: 135 3RF prednisone 5 mg tablet 5 mg PO BID Qty: 60 3RF Held abiraterone 250 mg tablet See Rx Instructions .ROUTE .COMPLEX Qty: 28 0RF Hold Instructions: Resume on 03/15/23. hold until you see oncology Dose Instruction: TAKE 1 TABLET BY MOUTH ONCE DAILY. TAKE WITH OR WITHIN 30 MINS OF A LOW FAT BREAKFAST Rx Instructions: TAKE 1 TABLET BY MOUTH ONCE DAILY. TAKE WITH OR WITHIN 30 MINS OF A LOW FAT BREAKFAST Discontinued fluoxetine [Prozac] 20 mg capsule 20 mg PO DAILY escitalopram oxalate 5 mg tablet 5 mg PO DAILY Qty: 30 1RF meloxicam 7.5 mg tablet 7.5 mg PO DAILY Discharge Orders: Discharge Order (Routine); Ordered 02/18/23 Ordered By: Eulalio Mata Referrals: [facility] [Outside] Daniele Clarke DO [Primary Care Provider] - Discharge Diet: Cardiac Discharge Activity: Resume usual activity Patient Instructions: Ciprofloxacin (By mouth) (Cipro), Furosemide (By mouth) (Lasix), Potassium Chloride (By mouth) (K-Dur, K-Brit, K-Tab, Escobar Mur), Metronidazole (By mouth) (Flagyl, Flagyl 375, Flagyl ER), Nicotine (Absorbed through the skin) (Nicoderm CQ, Nicoderm CQ..., Heart Failure (DC), CHF Stoplight, Opioid Safety Activity Restrictions/Additional Instructions: - For your heart failure, please limit fluid intake to 2 L a day, monitor shortness of breath, monitor edema, monitor we can -If you gain more than 3 pounds, if you feel more short of breath, if you develop lower extreme edema please use Lasix 40 mg once daily as needed with potassium replacement -The big thing that must be monitored is patient's sodium, patient developed severe hyponatremia with Lasix therapy and this needs to be monitored daily if he is given Lasix, risk of increased confusion, and complications with hyponatremia -For acute on chronic hyponatremia, serum sodium is 128, continue 2 L a day, monitor serum sodium in 48 hours -I have held patient's Lexapro, and fluoxetine, due to concerns for hyponatremia, ? For patient's systolic heart failure, please follow-up with cardiology in 2 to 4 weeks ? 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 For patient's acute anemia, monitor hemoglobin as outpatient repeat in 48 hours, hemoglobin discharge 8.4 Discharge Attestations Time Spent in Discharge Care*: greater than 30 min Quality Metrics Clinical Quality Measures [ No reported AMI, CVA or VTE this stay] Coding Level of Care Code 34403 Total time (in minutes) for Discharge: 45 Diagnoses Hyponatremia E87.1 Thrombocytopenia D69.6 Elevated LFTs R79.89 Status cardiac pacemaker Z95.0 HTN (hypertension) I10 Dyslipidemia E78.5 SSS (sick sinus syndrome) I49.5 Prostate cancer C61 Systolic CHF, acute I50.21 Right-sided heart failure I50.810 Cholecystitis without calculus K81.9 Bilateral pleural effusion J90 Emphysema of lung J43.9 Acute anemia D64.9 Acute encephalopathy G93.40 Physical deconditioning R53.81 Protein calorie malnutrition E46
--- NOTE | 2023-02-18 13:29 | PC.SOCIAL ---
IMM Update pg 2 of IMM updated and reviewed w/ patient. Copy provided and copy dated, initialed and placed in chart.
--- NOTE | 2023-02-18 15:03 | PC.NURSE ---
Discharge Note Patient discharged to SNF via POV accompanied by [facility] staff. Discharge instructions reviewed with patient and/or u.s. representative. Mobile pharmacy medications and/or prescriptions provided. Belongings/home medications returned.
== END 2023-02-18 14:00 | disposition skilled nursing facility (03) | DRG 280 ==
LOC: ER 02-10 00:01 → CSU 02-10 00:15
PROVIDERS: Admitting Provider Internal Medicine; Emergency Provider Physician Assistant; PCP Internal Medicine; Visit Provider Family Medicine
DX: I11.0 Hypertensive heart disease with heart failure (principal); I50.23 Acute on chronic systolic (congestive) heart failure; I21.4 Non-ST elevation (NSTEMI) myocardial infarction; J96.01 Acute respiratory failure with hypoxia; E87.1 Hypo-osmolality and hyponatremia; M62.82 Rhabdomyolysis; G93.40 Encephalopathy, unspecified; C79.51 Secondary malignant neoplasm of bone; F17.210 Nicotine dependence, cigarettes, uncomplicated; I49.5 Sick sinus syndrome; Z95.0 Presence of cardiac pacemaker; G30.9 Alzheimer's disease, unspecified; F02.80 Dementia in other diseases classified elsewhere, unspecified severity, without behavioral disturbance, psychotic disturbance, mood disturbance, and anxiety; E78.5 Hyperlipidemia, unspecified; I48.91 Unspecified atrial fibrillation; D64.9 Anemia, unspecified; K81.9 Cholecystitis, unspecified; J43.9 Emphysema, unspecified; D69.6 Thrombocytopenia, unspecified; I50.810 Right heart failure, unspecified; C61 Malignant neoplasm of prostate
CPT/HCPCS: 36415; 36600; 51702; 70450; 71045; 71275; 72100; 73521; 73560; 74176; 76705; 78452; 80048; 80051; 80053; 80503; 81001; 81015; 82274; 82330; 82550; 82728; 82805; 83540; 83550; 83735; 83880; 84100; 84145; 84295; 84484; 85007; 85014; 85018; 85025; 85049; 85362; 85378; 85384; 85610; 85730; 86140; 87040; 87086; 87426; 87486; 87581; 87633; 92523; 92610; 93005; 93017; 93306; 93970; 94640; 96372; 96374; 96375; 96376; 97110; 97116; 97161; 97166; 97530; 97535; 99285; A9270; A9500; J0744; J1644; J1650; J1940; J2405; J2785; J2930; J3490; J7512; J7626; Q9967

== ENCOUNTER 2023-02-25 00:14 | Inpatient (IN) | payer MEDICARE, OTHER, SELFPAY ==
[2023-02-25] VITALS (16 sets, daily range): BP systolic 74–116; BP diastolic 37–59; PULSE 60–115; RESP 16–28; TEMP 36.4–37.6; O2SAT 90–100
--- NOTE | 2023-02-25 00:16 | ECG_ITS ---
[facility] Test Date: 2023-02-25 Pat Name: Charlie Regalado Department: Room: Gender: Male Data Processing Clerk: : 1940 Requested By: Lavell Martinez Order Number: [id number] Cinthia MD: Joel Gao M.D. Measurements Intervals [place] Rate: 65 P: 0 FL: 0 QRS: 97 QRSD: 166 T: -7 QT: 443 QTc: 464 Interpretive Statements ELECTRONIC VENTRICULAR PACEMAKER Atrial fibrillation with a demand V pacing ABNORMAL RHYTHM ECG INTERPRETATION BASED ON A DEFAULT AGE OF 40 YEARS Compared to ECG 02/10/2023 21:30:40 No significant changes Electronically Signed On 02-25-2023 20:46:29 RUG FRAME MOUNTER by Joel Gao M.D. [email or web address] [facility].[email or web address]/NU/[id number]
--- NOTE | 2023-02-25 00:24 | XRR_ITS ---
PROCEDURE INFORMATION: Exam: XR Chest Exam date and time: 02/25/2023 12:28 AM Age: 82 years old Clinical indication: Dyspnea; Prior surgery; Surgery date: 6+ months; Surgery type: Pacer; Additional info: Shortnes of breath TECHNIQUE: Imaging protocol: Radiologic exam of the chest. Views: 1 view. COMPARISON: CR XR chest 1V portable [id number] 02/18/2023 9:11 AM FINDINGS: Tubes, catheters and devices: A left pacemaker device is present and its leads are in appropriate position. EKG monitoring leads overlie the thoracic wall. Lungs: Mild diffuse interstitial coarsening, not significantly changed from comparison of 02/10/2023 and prior examinations. No consolidation. Pleural spaces: No pleural effusion or pneumothorax. Heart/Mediastinum: Mild cardiomegaly. Bones/joints: No acute fracture is identified. XR/XR chest 1V portable [id number] IMPRESSION: 1. Mild chronic interstitial coarsening. 2. Mild cardiomegaly, stable. 3. No acute cardiopulmonary findings.
[2023-02-25 00:34] LABS: Hematocrit 28.8 % (37-53); Mean Corpuscular HGB Conc 30.2 g/dL (30-55); Mean Corpuscular Hemoglobin 28.7 pg (27-33); Red Blood Count 3.03 10^6/uL (3.85-5.65); Red Cell Distribution Width 18.3 % (12.1-15.1); White Blood Count 5.34 10^3/uL (3.29-11.43)
--- NOTE | 2023-02-25 00:37 | ED_ITS ---
HPI - SOB/Dyspnea General: Chief Complaint: Shortness of Breath/Dyspnea Stated Complaint: Resp Distress Time Seen by Provider: 02/25/23 00:24 History of Present Illness: HPI Narrative: Patient presents from [facility] by EMS with complaints of shortness of breath, stating he feels like he was going to , EMS stated that he was in A-fib and a bradycardia type pattern. They did give him 1/2 mg of atropine on route for bradycardia in the 30s. Upon arrival he is pulse was in the 70s. Patient is on 4 L of oxygen per nasal cannula and at his baseline. Patient reports that he has not felt well for several days but denies any chest pain, diaphoresis, nausea vomiting. Review of Systems General: Reports: 10 or more systems reviewed and unremarkable except in HPI and below PFSH ED PFSH: Medical History Alzheimer disease Dizziness Dyslipidemia Elevated PSA HTN (hypertension) Migraine SSS (sick sinus syndrome) Surgical History Hx of shoulder surgery S/P appendectomy S/P cataract extraction S/P hip replacement Status cardiac pacemaker Family History Father , AT AGE 80 Stroke Mother , AT AGE 26 Bowel obstruction Other CAD (coronary artery disease) Cancer Social History Smoking and tobacco/nicotine status: current every day tobacco/nicotine user cigarettes Packs smoked per day: 1 Years cigarettes smoked: 70 Alcohol intake: never Substance/Drug Use: never Lives independently: Yes Marital status: / service: Yes branch: [employer] Current occupational status: retired Previous occupational history: [employer] Current gender identity: Male Physical Exam Const: COMMON NORMALS: no acute distress, average body habitus, no limitations, healthy appearing, alert and well nourished HENMT: COMMON NORMALS: normocephalic, atraumatic, hearing grossly normal bilaterally, external ears normal, Normal external nose present, moist oral mucous membranes and oropharynx normal HEAD & SCALP: normocephalic and atraumatic NOSE: Normal external nose present EXTERNAL EAR: Yes external ears normal Neck/C-Spine: COMMON NORMALS: full ROM, no lymphadenopathy, supple, no meningeal signs and no JVD Chest: COMMONS NORMALS: normal inspection of the chest and normal palpation of entire chest wall Resp: COMMON NORMALS: normal respiratory effort, No retractions, No use of accessory muscles and clear to auscultation bilaterally AUSCULTATION: clear to auscultation bilaterally Cardio: COMMON NORMALS: no JVD, regular rate, S1 normal heart sound present, S2 normal heart sound present, No gallops present (Cardio), No clicks present (Cardio), No murmurs present (Cardio) and No rub (Cardio); negative for regular rhythm (Irregularly irregular rhythm) RATE: regular rate RHYTHM: abnormal rhythm (Irregularly irregular rhythm) HEART SOUNDS: S1 normal heart sound present and S2 normal heart sound present GI: COMMON NORMALS: Normal to inspection, nondistended, normoactive bowel sounds present, Soft to palpation, non-tender, No hepatosplenomegaly present and no masses PALPATION: Yes Soft to palpation and Yes No hepatosplenomegaly pres ent Neuro: SENSORIUM/ORIENTATION: Yes alert MENINGEAL SIGNS: Yes no meningeal signs Course Vital Signs: Vital signs: Vital Signs Temperature 99.1 F 02/25/23 00:14 Pulse Rate 76 02/25/23 04:10 Respiratory Rate 18 02/25/23 04:10 Blood Pressure 107/59 02/25/23 04:10 Pulse Oximetry 97 02/25/23 04:10 Oxygen Delivery Me thod Nasal Cannula 02/25/23 04:10 Oxygen Flow Rate 4 02/25/23 04:10 MDM - SOB/Dyspnea Medical Decision Making Patient was just recently discharged from this hospital secondary to anemia. Patient has metastatic colon cancer. Lab work was obtained which revealed platelets of 28,000, glucose of 37, patient was given 1 amp of D50 and blood glucose raised to 98. Elevated liver enzymes such as AST ALT alkaline phosphatase and total bilirubin as well as INR even though the patient is not on Coumadin, chest x-ray was essentially negative. Dr. Lianet barrera was consulted and this case was discussed extensively with him and he was the admitting physician for the last hospital stay. Dr. Ramon did suggest we get an LDH, DIC panel and abdomen pelvis CT to look into this issue with the elevated liver enzymes. And then patient will probably be admitted to [facility]. Differential Diagnosis Unlikely acute exacerbation of chronic obstructive airways disease, congestive heart failure, community acquired pneumonia, asthma with exacerbation or pulmonary embolism Medical Records I reviewed the patient's medical records. Lab Data I reviewed the patient's lab results. 02/25/23 00:26 02/25/23 00:26 Labs/Radiology: Radiology Impressions Chest X-Ray 02/25/23 00:24 IMPRESSION: 1. Mild chronic interstitial coarsening. 2. Mild cardiomegaly, stable. 3. No acute cardiopulmonary findings. Abdomen/Pelvis CT 02/25/23 02:36 IMPRESSION: 1. Hepatomegaly and hepatic steatosis. No liver masses are identified. However, given the lack of intravenous contrast, correlation with a 2nd modality such as ultrasound or MRI may be helpful. 2. A small amount of free fluid in the pelvis, perhaps related to liver disease. 3. The adrenal glands are thickened, consistent with bilateral adrenal hyperplasia. Metastatic disease may present a similar picture. 4. Bladder wall thickening suggesting cystitis, incomplete distention or chronic outflow obstruction. 5. Extensive osseous, sclerotic, metastatic lesions. COMMENTS: Consistent with the [employer]'s Incidental Findings Committee white paper (J Am Adam Radiol 2018): Any incidental renal lesion less than 1 cm or classified as too small to characterize, or any incidental cystic renal lesion characterized as simple-appearing, is likely benign. No follow-up imaging is recommended for these lesions per consensus recommendations based on imaging criteria. Laboratory Results WBC 5.34 10^3/uL (3.29-11.43) 02/25/23 00:26 Corrected WBC 4.8 10^3/cmm (4.8-10.8) 02/25/23 00:26 RBC 3.03 10^6/uL (3.85-5.65) L 02/25/23 00:26 Hgb 8.70 g/dL (11.27-16.99) L 02/25/23 00:26 Hct 28.8 % (37-53) L 02/25/23 00:26 MCV 95.0 fl (82-101) 02/25/23 00:26 MCH 28.7 pg (27-33) 02/25/23 00: MCHC 30.2 g/dL (30-55) 02/25/23 00: RDW 18.3 % (12.1-15.1) H 02/25/23 00:26 Plt Count 28 10^3/cmm (157-399) L* 02/25/23 00:26 MPV Strip [place] 02/25/23 00:26 Lymph % (Auto) Not Reportable 02/25/23 00:26 [place] % (Auto) Not Reportable 02/25/23 00:26 Lymph # (Auto) Not Reportable 02/25/23 00:26 [place] # (Auto) Not Reportable 02/25/23 00:26 Total Counted 100 (0-100) 02/25/23 00:26 Atypical Lymphs % Not Reportable 02/25/23 00:26 Segmented Neutrophils 66 % 02/25/23 00:26 Abs Segm Neuts (Man) 3.5 10/cmm (1.6-7.1) 02/25/23 00:26 Band Neutrophils Not Reportable 02/25/23 00:26 Lymphocytes (Manual) 14 % 02/25/23 00:26 Monocytes (Manual) 2.0 % 02/25/23 00:26 Absolute Monocytes 0.1 10^3/cmm (0.1-0.6) 02/25/23 00:26 Eosinophils (Manual) 0 % 02/25/23 00:26 Absolute Eosinophils 0.0 10^3/cmm (0.0-0.7) 02/25/23 00:26 Basophils (Manual) 1.0 % 02/25/23 00:26 Absolute Basophils 0.1 10^3/cmm (0.0-0.2) 02/25/23 00:26 Myelocytes 5.0 % 02/25/23 00:26 Nucleated RBCs 12.0 /100WBC (0-1) H 02/25/23 00:26 Platelet Estimate Decreased (Normal) 02/25/23 00:26 Polychromasia Trace 02/25/23 00:26 Poikilocytosis 1+ H 02/25/23 00:26 PT 33.50 SECONDS (12.1-14.9) H 02/25/23 03:27 INR 3.15 (0.8-1.2) H 02/25/23 03:27 APTT 74.7 SECONDS (23.9-36.7) H 02/25/23 03:27 Fibrinogen 451 mg/dL (174-498) 02/25/23 03:27 D-Dimer >= 20.00 ug/mLFEU (0-0.59) H 02/25/23 03:27 Sodium 138 mmol/L (136-145) 02/25/23 00:26 Potassium 4.3 mmol/L (3.5-5.1) 02/25/23 00:26 Chloride 97 mmol/L (98-107) L 02/25/23 00:26 Carbon Dioxide 20 mmol/L (22-29) L 02/25/23 00:26 Anion Gap 25.3 (5-19) H 02/25/23 00:26 BUN 44 mg/dL (8-23) H 02/25/23 00:26 Creatinine 1.3 mg/dL (0.7-1.2) H 02/25/23 00:26 GFR Calculation Not Reportable 02/25/23 00:26 Glucose 37 mg/dL (65-115) L* 02/25/23 00:26 POC Glucose 98 mg/dL (70-110) 02/25/23 02:06 Calculated Osmolality 294 mOsm/kg (285-295) 02/25/23 00:26 Calcium 8.7 mg/dL (8.5-10.5) 02/25/23 00:26 Magnesium 2.3 mg/dL (1.7-2.3) 02/25/23 00:26 Total Bilirubin 3.1 mg/dL (0.15-1.2) H 02/25/23 00:26 AST 380 U/L (0-40) H 02/25/23 00:26 ALT 102 U/L (0-41) H 02/25/23 00:26 Alkaline Phosphatase 471 U/L (40-130) H 02/25/23 00:26 Ammonia 34 umol/L (16-60) 02/25/23 03:27 Lactate Dehydrogenase 2425 U/L (135-225) H 02/25/23 02:07 Troponin T Baseline 59 ng/L (0-15) H 02/25/23 00:26 Troponin T 120 Minute 56.50 ng/L (0-15) H 02/25/23 02:07 Delta Troponin T -2.50 ABS# (0-10) L 02/25/23 02:07 NT-Pro-B Natriuret Pep 8959 pg/mL (0-450) H 02/25/23 00:26 Total Protein 5.2 g/dL (6.6-8.7) L 02/25/23 00:26 Albumin 2.8 g/dL (3.5-5.2) L 02/25/23 00:26 Globulin 2.4 g/dL (1.3-4.6) 02/25/23 00:26 All radiology interpretation(s) finalized by discharge EKG Data EKG 1: I personally reviewed and interpreted this EKG as follows: EKG Interpretation Date: 02/25/23 EKG interpretation time: 00:16 Prior EKG tracings: not available for review Interpretation: EKG showed ventricular rate 65 bpm, QRS duration 166, QTc of 455, Tronic ventricular pacemaker EKG 2: I personally reviewed and interpreted this EKG as follows: EKG Interpretation Date: 02/25/23 EKG interpretation time: 02:34 Prior EKG tracings: available for review Interpretation: Ventricular rhythm of 66 bpm, QRS duration 143, QTc of 483, electronic ventricular pacemaker Discharge Plan Discharge Patient Disposition: Admitted As Inpatient Clinical Impression: Thrombocytopenia, Anemia, Malignant neoplasm of prostate metastatic to bone, Elevated liver enzymes, Elevated LDH, Elevated INR, D-dimer, elevated Condition: Stable Coding Level of Care Code ED Feed Preparation Operator for Nav Joyce
[2023-02-25 00:46] LABS: INR 3.03 (0.8-1.2)
--- NOTE | 2023-02-25 00:50 | PC.NURSE ---
medtroinc pacemaker interrogated at this time
[2023-02-25 00:54] LABS: Troponin(5th) Baseline 59 ng/L (0-15)
[2023-02-25 01:03] LABS: Slide Review Slide Review Perform
[2023-02-25 01:04] LABS: Alanine Aminotransferase 102 U/L (0-41); Albumin Level 2.8 g/dL (3.5-5.2); Alkaline Phosphatase 471 U/L (40-130); Anion Gap 25.3 (5-19); Aspartate Amino Transferase 380 U/L (0-40); Blood Urea Nitrogen 44 mg/dL (8-23); Calcium 8.7 mg/dL (8.5-10.5); Carbon Dioxide 20 mmol/L (22-29); Chloride 97 mmol/L (98-107); Globulin 2.4 g/dL (1.3-4.6); Magnesium 2.3 mg/dL (1.7-2.3); NT Pro B Type Natriuretic Pept 8959 pg/mL (0-450); Osmolality Calculated 294 mOsm/kg (285-295); Potassium 4.3 mmol/L (3.5-5.1); Sodium 138 mmol/L (136-145); Total Bilirubin 3.1 mg/dL (0.15-1.2); Total Protein 5.2 g/dL (6.6-8.7)
[2023-02-25 01:05] LABS: Absolute Segmented Neutrophil 3.5 10/cmm (1.6-7.1); Segmented Neutrophils 66 %; Total Cells Counted 100 (0-100)
[2023-02-25 01:06] LABS: Basophils Absolute 0.1 10^3/cmm (0.0-0.2); Corrected White Blood Count 4.8 10^3/cmm (4.8-10.8); Eosinophils 0 %; Lymphocytes 14 %; Monocytes Absolute 0.1 10^3/cmm (0.1-0.6); Platelet Estimate Decreased (Normal)
[2023-02-25 01:07] LABS: Poikilocytosis 1+
[2023-02-25 01:08] LABS: Polychromasia Trace
[2023-02-25 01:09] LABS: Platelet Count 28 10^3/cmm (157-399)
[2023-02-25 01:12] LABS: Glucose 37 mg/dL (65-115)
[2023-02-25] MEDS: dextrose 50% syringe 50 mL IVP (01:24)
[2023-02-25 01:26] LABS: Glucose Point of Care 34 mg/dL (70-110)
[2023-02-25 02:10] LABS: Glucose Point of Care 98 mg/dL (70-110)
--- NOTE | 2023-02-25 02:25 | ECG_ITS ---
[facility] Test Date: 2023-02-25 Pat Name: Charlie Regalado Department: Room: Gender: Male Forensic Science Technician: : 1940 Requested By: Lavell Martinez Order Number: [id number] Cinthia MD: Joel Gao M.D. Measurements Intervals [place] Rate: 66 P: 0 VT: 0 QRS: -70 QRSD: 143 T: 79 QT: 469 QTc: 494 Interpretive Statements Atrial fibrillation with a demand V pacing. Further interpretation is not possible Electronically Signed On 02-25-2023 20:52:57 HEAT TREATING FURNACE TENDER by Joel Gao M.D. [email or web address] [email or web address] regional health centerLiveProcess [email or web address].PlaySight/store/OM/[id number]
--- NOTE | 2023-02-25 02:36 | CTR_ITS ---
PROCEDURE INFORMATION: Exam: CT Abdomen And Pelvis Without Contrast Exam date and time: 02/25/2023 2:53 AM Age: 82 years old Clinical indication: Abnormal findings; Abnormal lab test; Other: Julisa lft, bili, low plts; Additional info: Elevated lfts, bilirubin, low plts, cancer mets TECHNIQUE: Imaging protocol: Computed tomography of the abdomen and pelvis without contrast. Radiation optimization: All CT scans at this facility use at least one of these dose optimization techniques: automated exposure control; mA and/or kV adjustment per patient size (includes targeted exams where dose is matched to clinical indication); or iterative reconstruction. REPORTING DATA: Count of CT and Cardiac NM exams in prior 12 months: This patient has received 7 known CTs and 0 known cardiac nuclear medicine studies in the 12 months prior to the current study. COMPARISON: CT abdomen pelvis wo con [id number] 02/15/2023 12:00 PM RADIATION DOSE METRICS: Total DLP (mGy-cm): 540.12 FINDINGS: Limitations: The lack of intravenous contrast limits evaluation. Tubes, catheters and devices: There are pacemaker leads in appropriate position. Lungs: The visualized lung florence show mild bibasilar atelectasis. Liver: The liver is mildly enlarged, measuring 18 cm in length at the mid axillary line. There is hepatic steatosis. No liver masses identified on this examination done without contrast. Gallbladder and bile ducts: No calcified gallstones are identified. There is no pericholecystic fluid. There is no evidence of biliary ductal dilation. Pancreas: The pancreas is normal. Spleen: The spleen is normal in size and density. Adrenal glands: The adrenal glands are thickened. Kidneys and ureters: No hydronephrosis. Multiple simple appearing cysts of the left kidney as large as 4.7 cm. There is bilateral perirenal stranding/fluid. TheModerate diverticulosis is present in the left colon without acute diverticulitis. Stomach and bowel: See Kidneys and ureters finding. Appendix: No evidence of appendicitis. Intraperitoneal space: The there is a small amount of free fluid in the pelvis. Vasculature: No abdominal aortic aneurysm. Lymph nodes: No enlarged retroperitoneal or mesenteric lymph nodes. Urinary bladder: There is mild bladder wall thickening. Reproductive: The prostate appears small. Seminal vesicles are unremarkable. Bones/joints: There is a left hip arthroplasty in near anatomic alignment. Diffuse osseous demineralization and multiple blastic metastatic lesions of the pelvis, spine and included ribs. Mild levoconvex lumbar rotoscoliosis.Multilevel degenerative disc disease without significant spinal canal stenosis. Soft tissues: Anasarca of the abdominopelvic ryan and mesentery. CT/CT abdomen pelvis wo con [id number] IMPRESSION: 1. Hepatomegaly and hepatic steatosis. No liver masses are identified. However, given the lack of intravenous contrast, correlation with a 2nd modality such as ultrasound or MRI may be helpful. 2. A small amount of free fluid in the pelvis, perhaps related to liver disease. 3. The adrenal glands are thickened, consistent with bilateral adrenal hyperplasia. Metastatic disease may present a similar picture. 4. Bladder wall thickening suggesting cystitis, incomplete distention or chronic outflow obstruction. 5. Extensive osseous, sclerotic, metastatic lesions. COMMENTS: Consistent with the [employer] [employer]'s Incidental Findings Committee white paper (J Am Adam Radiol 2018): Any incidental renal lesion less than 1 cm or classified as too small to characterize, or any incidental cystic renal lesion characterized as simple-appearing, is likely benign. No follow-up imaging is recommended for these lesions per consensus recommendations based on imaging criteria.
[2023-02-25] MEDS: sodium chloride 0.9% 1,000 ML 999 ML IV ×2 (03:17→04:14)
[2023-02-25 03:19] LABS: Lactate Dehydrogenase 2425 U/L (135-225)
[2023-02-25 03:30] LABS: Reflex FDPQ test REFLEX FDP QUEST TES
[2023-02-25 03:48] LABS: INR 3.15 (0.8-1.2)
[2023-02-25 03:51] LABS: Ammonia 34 umol/L (16-60)
[2023-02-25] MEDS: morphine 4 mg/mL SDV 1 mL 2 MG IVP (03:53)
[2023-02-25 03:56] LABS: Fibrinogen 451 mg/dL (174-498); Partial Thromboplastin Time 74.7 SECONDS (23.9-36.7)
[2023-02-25 04:05] LABS: D Dimer >= 20.00 ug/mLFEU (0-0.59)
--- NOTE | 2023-02-25 04:29 | US_ITS ---
WS: [id number] RIGHT UPPER QUADRANT ULTRASOUND HISTORY: elevated lfts, metastatic prostate cancer, dic, COMPARISON: 02/10/2023, 02/25/2023 Liver: 17.2 cm in length. Mildly enlarged liver. No mass or bile duct dilatation. Portal Vein: Normal hepatopetal flow with monophasic waveform. Gallbladder: Normally distended gallbladder. No stones. There is mild diffuse gallbladder wall thicke tremaine with a small amount of pericholecystic fluid. Gallbladder wall measures up to 8 mm. Gallbladder is not hydropic. CBD: 0.4 cm Pancreas: Atrophic. Right kidney: 11.8 cm in length. Normal size and echogenicity. No hydronephrosis or mass. Aorta and IVC: Unremarkable abdominal aorta and IVC. Tiny amount of ascites and a very tiny RIGHT pleural effusion. IMPRESSION: 1. No cholelithiasis or gallbladder hydrops. 2. Diffuse gallbladder wall thickening with pericholecystic fluid. Differential includes a calculus c holecystitis. Gallbladder wall thickening and these changes also may be seen with ascites and hepatoc ellular disease. There are no stones and there is no hydrops. 3. No bile duct dilatation. 4. Tiny amount of ascites and small RIGHT pleural effusion.
--- NOTE | 2023-02-25 05:02 | P.HP_ITS ---
Providers/Chief Complaint Admitting Physician: Leeroy Ramon Primary Care Provider: Daniele Clarke DO Chief Complaint: Resp Distress History of Present Illness 82-year-old gentleman with history of metastatic prostate cancer, with recent hospitalization with CHF, new cardiomyopathy, acute encephalopathy, UTI, hyponatremia, other medical problems, please refer to discharge note, was discharged to group home facility for rehabilitation, returns to ER after assessment by EMS which was called due to shortness of breath found A-fib with bradycardia pattern, heart rates in the 30s, received atropine, heart rates came up to 70s, on assessment in ER with soft blood pressure for which received fluid boluses, additionally hypoglycemic, blood glucose 37, received an amp of D50. Not on hypoglycemic medications. He is chronically on 4 L of oxygen which he is on in ER with saturations in the 90s. He is found to have worsened thrombocytopenia, platelets down to 28, with increase in nucleated RBC up to 12. Worsened elevation, INR up to 3.15. Severely elevated D-dimer >20, severe elevation of LDH 2425. With worsening liver parameters, new T. bili elevation 3.1, worsening alk phos elevation up to 471 also worsened AST up to 380, worsened ALT up to 102. NT proBNP is lower than previous at 8959. Mild troponin elevation. LASHELL, creatinine up to 1.3. Chest x-ray with mild chronic interstitial coarsening. Mild cardiomegaly. Stable. CT abdomen pelvis with hepatomegaly and hepatic steatosis. No liver masses but noncontrast study. Small amount of free fluid in the pelvis. Adrenal glands thickened, consistent with bilateral adrenal hyperplasia. Metastatic disease not excluded. Bladder wall thickening suggesting cystitis, incomplete distention or chronic outflow obstruction. Extensive osseous sclerotic metastatic lesions. Per discussion with family speech has been somewhat slurred. Mouth is dry. He is still having some visual hallucinations. Review of Systems Const: Reports: other (Weak); Denies: fever(s), chills, body aches or malaise ENMT: Denies: throat pain Card: Denies: chest pain, edema, pre-syncope or dyspnea on exertion Resp: Denies: dyspnea, productive cough, change in phlegm color or hemoptysis GI: Denies: abdominal pain, nausea, vomiting, diarrhea, constipation, hematochezia or melena : Reports: other (dysuria); Denies: flank pain, difficulty urinating, urinary frequency or hematuria Musc: Denies: back pain, joint swelling or joint redness Skin/Breast: Denies: rash or new lesions Neuro: Reports: confusion; Denies: headache(s), numbness in extremities, weakness in extremities, dizziness or seizure-like activity Psych: Reports: visual hallucinations Medications/Allergies Home Medications Medication Instructions Recorded Confirmed Last Taken Type omeprazole 40 mg capsule,delayed 40 mg PO DAILY 05/21/19 02/10/23 02/09/23 History release simvastatin 20 mg tablet 20 mg PO DAILY 05/21/19 02/10/23 02/09/23 History aspirin 81 mg tablet,delayed 81 mg PO DAILY 12/05/19 02/10/23 02/09/23 History release (Adult Low Dose Aspirin) acetaminophen 500 mg capsule 500 mg PO DAILY PRN Pain 03/25/22 02/10/23 Unknown History montelukast 10 mg tablet 10 mg PO DAILY 03/25/22 02/10/23 02/09/23 History (Singulair) tamsulosin 0.4 mg capsule 0.4 mg PO BID PRN URINE FLOW 08/02/22 02/10/23 Unknown History ascorbic acid (vitamin C) 500 mg 500 mg PO DAILY 08/25/22 02/10/23 02/09/23 His tory capsule,extended release (Vitamin C) cholecalciferol (vitamin D3) 10 10 mcg PO DAILY 08/25/22 02/10/23 02/09/23 History mcg (400 unit) capsule metoprolol succinate 50 mg 75 mg PO DAILY #135 tabs 10/04/22 02/10/23 02/09/23 Rx tablet,extended release 24 hr prednisone 5 mg tablet 5 mg PO BID #60 tabs 10/11/22 02/10/23 02/09/23 Rx abiraterone 250 mg tablet See Rx Instructions .Route 01/19/23 02/10/23 02/09/23 Rx .COMPLEX #28 tabs furosemide 40 mg tablet (Lasix) 40 mg PO DAILY PRN for sob or 02/18/23 Unknown Rx edema or weight gain more than 3lbs 30 days #30 tabs magnesium L-lactate 84 mg 84 mg PO DAILY 30 days #30 tabs 02/18/23 Unknown Rx tablet,extended release (Magtab) metronidazole 500 mg tablet 500 mg PO TID 30 days #90 tabs 02/18/23 Unknown Rx nicotine 21 mg/24 hr daily 1 patch transdermal DAILY 28 days 02/18/23 Unknown Rx transdermal patch #28 ea potassium chloride 20 mEq 20 meq PO DAILY PRN use with lasix 02/18/23 Unknown Rx tablet,extended only 30 days #30 tabs release(part/cryst) (Klor-Con M) Allergies Allergy/AdvReac Type Severity Reaction Status Date / Time grass pollen Allergy Mild ALGY-Conges Verified 02/25/23 00:23 leobardo zolpidem [From Ambien] AdvReac Severe ADR-Agitate Verified 02/25/23 00:23 d PFSH Acute PFSH: Medical History Alzheimer disease Dizziness Dyslipidemia Elevated PSA HTN (hypertension) Migraine SSS (sick sinus syndrome) Surgical History Hx of shoulder surgery S/P appendectomy S/P cataract extraction S/P hip replacement Status cardiac pacemaker Family History Father , AT AGE 80 Stroke Mother , AT AGE 26 Bowel obstruction Other CAD (coronary artery disease) Cancer Social History Smoking and tobacco/nicotine status: current every day tobacco/nicotine user cigarettes Packs smoked per day: 1 Years cigarettes smoked: 70 Alcohol intake: never Substance/Drug Use: never Lives independently: Yes Marital status: / service: Yes branch: [employer] Current occupational status: retired Previous occupational history: [employer] Current gender identity: Male Vitals/I&O/Wt Last Vital Signs Temp 99.1 F 02/25/23 00:14 Pulse 91 02/25/23 04:18 Resp 20 H 02/25/23 04:18 BP 105/59 02/25/23 04:18 Pulse Ox 92 02/25/23 04:18 O2 Del Method Nasal Cannula 02/25/23 04:18 O2 Flow Rate 4 02/25/23 04:18 02/24/23 02/24/23 02/25/23 14:59 22:59 06:59 Intake Total 616.05 / 616.05 Balance 616.05 / 616.05 Weight last 48 hrs Weight 68.039 kg Physical Exam Narrative: Accompanied by family. Const: COMMON NORMALS: alert GENERAL APPEARANCE: cooperative and frail appearing ORIENTATION/CONSCIOUSNESS: Yes awake HENMT: COMMON NORMALS: oropharynx normal Neck/C-Spine: COMMON NORMALS: no JVD Resp: COMMON NORMALS: normal respiratory effort and clear to auscultation bilaterally AUSCULTATION: clear to auscultation bilaterally Cardio: COMMON NORMALS: no JVD, regular rhythm, S1 normal heart sound present, S2 normal heart sound present and No murmurs present (Cardio) RHYTHM: regular rhythm HEART SOUNDS: S1 normal heart sound present and S2 normal heart sound present GI: COMMON NORMALS: Normal to inspection, nondistended, normoactive bowel sounds present, Soft to palpation and non-tender PALPATION: Yes Soft to palpation OTHER: Moe negative. Extremity: COMMON NORMALS: no joint enlargement and no pedal edema Neuro: COMMON NORMALS: moves all extremities SENSORIUM/ORIENTATION: Yes alert OTHER: Moderate dysarthria Skin: COMMON NORMALS: no rashes or lesions noted GENERAL SKIN EXAM: no rashes or lesions noted RASHES: rashes noted (Petechiae on lower extremities) Data 02/25/23 00:26 02/25/23 00:26 A&P Assessment and plan (1) Bradycardia: On presentation atrial fibrillation with bradycardia pattern, received atropine. This has resolved. So far maintaining heart rate 60s-70s. Monitor on te lemetry. Reviewed chemistry, magnesium, troponin, EKG. He does have a pacemaker in place. Interrogation was requested in ER. NT-proBNP reviewed, appears better than previously, does not appear in decompensated CHF. Limited TTE. Complete troponin EKG series to assess for any cardiac ischemia. Metoprolol is not resumed for now. (2) Hypoglycemia: Unfortunate appears he is going into acute liver failure which is supported by hypoglycemia not on any hypoglycemic medications, initially responded to D50 push, but now glucose again down to 54. Additional push of D50. Started D10 infusion. Monitor Accu-Cheks. (3) DIC (disseminated intravascular coagulation): Worsened thrombocytopenia, platelets down to 28. Appears to be in DIC with noted INR 3.15, D-dimer more than 20, LDH 2425. Check haptoglobin. Reviewed DIC profile, INR, CBC. Fibrinogen noted not low at current time. No active bleeding. Monitor. Follow-up DIC profile. Additional assessment for possible underlying condition apart from metastatic cancer, noted possible acute liver failure, additional assessment for possible Budd-Chiari syndrome, for now empiric antibiotic coverage with Zosyn given recent UTI, follow-up UA. Additional assessment with recent concern for cholecystitis. For now Zosyn coverage, although Moe's negative, CT scan without CBD dilation, lower carlos spicion for cholecystitis. HIDA scan requested. N.p.o. for the study. (4) Thrombocytopenia: Suspected DIC as above. Low risk group for TTP. Noted hepatomegaly on review o f abdominal CT, but spleen appears normal size and density. Concern for DIC. Concern otherwise for possibility of bone marrow disorder, possibly malignant invasion given rising nucleated RBC, up to 12. (5) Acute liver failure: Appears to be progressing to acute liver failure with worsening of liver function on review of LFTs, including worsened transaminitis, new hyperbi lirubinemia, worsening alk phos, additionally noted elevated INR 3.15, low albumin of 2.8, elevated LDH, persistent hypoglycemia. Unclear etiology, previously noted right heart failure, currently not decompensated, but possibly contributed over. This time, possible medication, amiodarone? Cipro? Flagyl? Tylenol? Will start first dose NAC. Possible metastatic invasion with disseminated prostate cancer. CT abdomen pelvis reviewed, no obvious metastatic disease, but noncontrast study. Additional assessment for possible Budd-Chiari syndrome. Liver duplex requested. Additional assessment with recent concern for cholecystitis. For now Zosyn coverage, although Moe negative, CT scan without CBD dilation, lower suspicion for cholecystitis. No signs of cholangitis. HIDA scan requested. N.p.o. for the study. (6) Abnormal liver function: As above. (7) LASHELL (acute kidney injury): Possibly prerenal, noted dry mucous membranes, soft blood pressure, has been on Lasix. Hold diuretics. Received fluid challenge. Follow-up renal function. Otherwise possibility of hepatorenal syndrome. Albumin is low, will give albumin. Start on midodrine. (8) Goals of care, counseling/discussion: Discussed seriousness and severity of his condition with his family after it was also discussed by ER physician highlighting concern for a potentially life- threatening condition underlying his presentation, possibly DIC, possibly acute liver failure, possibly bone marrow disease possibly malignant infiltration or other, recommendation made for transfer to tertiary care facility, but family state recently learning of the extent of the metastatic disease with prostate cancer as well as other conditions including cardiomyopathy and overall condition aggressive care would be incongruent with his goals of care, declining transfer to tertiary facility, declining initial admission to intensive care unit. They understand that he is likely in potentially life-threatening condition that may take his life during this admission, they do not want aggressive work-up or intervention is do agree with initial work-up and managem ent as above on medical surgical floor because they also would like to have a number of family visiting him, realizing that he may not survive for very long, depending on his condition, additional findings, they may forego further medical treatment as well in favor of comfort measures. Discussed with him as well. Discussed with warehouse assembly worker, requesting private room on medical surgical floor. As per discussion also no resuscitation in case of cardiopulmonary arrest. Overall prognosis, very high risk of mortality in the near future. Evaluated and treated in ER, arrangements made for admission to intensive care unit, but declined per family. ER documentation reviewed and discussed with ER physician. Plan Recently diagnosed cardiomyopathy, CHF: Currently not decompensated, LASHELL, dry MM, for now did not restart Lasix. With bradycardia, reassess limited echo. Reassess volume status, consider resumption of diuretic. Abnormal stress test: During prior hospitalization. With noted new cardiomyopathy. Noted medium size prior infarct seen in LAD and RCA territory. Aspirin currently on hold due to worsening thrombocytopenia. Beta-zuleima currently on hold due to preadmission bradycardia. Recent UTI: Completed course with Cipro, last urine culture with mixed junie. Repeat UA. Adrenal thickening: noted adrenal thickening on CT, possibly hyperplasia versus metastatic disease. As blood pressure has been soft, on chronic steroid, will give stress dose steroids for now with hydrocortisone. BPH: Continue Flomax PPM present Emphysema Metastatic prostate cancer: With diffuse osseous metastatic cyst. Also noted adrenal thickening, possibly hyperplasia versus metastatic disease. Attestations Medical Necessity Statement*: Need for admission of over 2 midnights anticipated with DIC, acute liver failure, LASHELL, additional multiple abnormalities as above angiomata with metastatic prostate cancer, cardiomyopathy, additional medical problems. Coding Level of Care Code Critical Care >/= 30 minutes Critical care time (in minutes): 40 The high probability of a clinically significant, sudden or life threatening deterioration, as referenced in this documentation, required my full and direct attention, intervention and personal management. The critical care time shown is in addition to time spent performing any reported separately billable procedures and includes the following: [x] Data and vital sign review and interpretation [x ] Patient assessment, examination and intervention [x] Medication orders and management [x] Patient/Family updates as able [x] Care Coordination and Documentation. Diagnoses Bradycardia R00.1 Hypoglycemia E16.2 DIC (disseminated intravascular coagulation) D65 Thrombocytopenia D69.6 Acute liver failure K72.00 Abnormal liver function R94.5 LASHELL (acute kidney injury) N17.9 Goals of care, counseling/discussion Z71.89
[2023-02-25 05:15] LABS: Urine Color Dark Yellow (Yellow)
[2023-02-25 05:16] LABS: Bilirubin Urine 1+ (Negative); Blood Urine Trace (Negative); Glucose Urine UA Norm (Normal); Ketones Urine 1+ (Negative); Nitrate Urine Negative (Negative); Protein Urine Trace (Negative); Specific Gravity, Urine 1.025 (1.005-1.030); Urine Appearance SL Hazy (CLEAR); pH Urine 5 (5-7)
[2023-02-25 05:17] LABS: Add Urine Culture? No; Add Urine Microscopic? YES; Amorphous Sediment Urine 1+ /hpf; Bacteria Urine TRACE /hpf; Leukocyte Esterase Urine Trace (Negative); Mucus Urine 2+ /hpf; RBC Urine 0-4 /hpf (0-2); Squamous Epithelial Cell Urine 0-4 /hpf (0-5); Urobilinogen Urine Neg (Negative); WBC Urine 0-4 /hpf (0-5)
--- NOTE | 2023-02-25 05:32 | USCV_ITS ---
Charlie Regalado Age: 82 Gender: M : 1940 Exam Date: 02/25/2023 07:13 Ordering Phys: Leeroy Ramon MD Technologist: Cj Spring Exam Location: [facility] [place] Indication: bradycardia BP: 74 / 47 HR: 62 Rhythm: Sinus Technical Quality: Adequate MEASUREMENTS (Male / Female) Normal Values 2D ECHO LVOT Diameter 2.1 cm LV Ejection Fraction MOD 2C 46.3 % LV Ejection Fraction 2C AL 50.0 % LA Diameter 4.2 cm LA Width 4.1 cm LA Height 6.7 cm RA Width 5.6 cm RA Height 6.1 cm Aorta at Sinotubular Diameter 2.1 cm IVC Diameter 2.6 cm M-MODE Aortic Annulus Diameter 2.7 cm LA Ao Ratio MM 1.8 MV E Point Septal Separation 0.6 cm DOPPLER Right Atrial Pressure 15.0 mmHg FINDINGS Left Ventricle Limited study. No Doppler performed. LV systolic function estimated to be 50% with mild anterior wall hypokinesis. Right Ventricle Upper normal size. Overall normal function Right Atrium Normal in size Left Atrium Mildly dilated Mitral Valve Thickened no Doppler performed Aortic Valve Thickened and calcified. No Doppler performed Tricuspid Valve Not well-visualized Pulmonic Valve Not well-visualized Pericardium No pericardial effusion Aorta IVC CONCLUSIONS Ebony Morataya MD (Electronically Signed) Final Date: 25 February 2023 09:39 S
--- NOTE | 2023-02-25 05:41 | PC.NURSE ---
Patient's blood sugar 54. Patient not able to drink juice on attempt. Dr. Ramon notified. See orders.
[2023-02-25] MEDS: dextrose 50% syringe 50 mL 25 ML IVP (06:14)
[2023-02-25] MEDS: sodium chloride 0.9% 250 ML IV (06:17)
[2023-02-25] MEDS: dextrose 10% 1,000 ML 30 ML IV (06:17)
[2023-02-25] MEDS: albumin 50 G/200 ML BAG 60 G IV (06:17)
[2023-02-25] MEDS: pantoprazole 40 mg SDV IVP (06:23)
[2023-02-25] MEDS: midodrine 5 mg TABLET PO (06:23)
[2023-02-25] MEDS: hydrocortisone 100 mg/2 mL SDV IVP (06:23)
--- NOTE | 2023-02-25 06:28 | PC.NURSE ---
call placed to dr. Dior due to low BP, Tristen Jaramillo already placed orders in and instructed this nurs to go ahead and pull Midodrine if pt can take oral, one time order placed due to inability to pull midodrine since it is not due until 0900, Dr. Berger approved and okay to still give 0900 dose. pt took midodrine orallly.
[2023-02-25] MEDS: acetylcysteine 10,200 MG in dextrose 5% 250 ML 301 MG IV (06:48)
[2023-02-25 06:49] LABS: Glucose Point of Care 54 mg/dL (70-110)
[2023-02-25 06:49] LABS: Glucose Point of Care 82 mg/dL (70-110)
[2023-02-25 07:17] LABS: Troponin 5 6HR 64.33 ng/L (0-15)
[2023-02-25 07:21] LABS: Troponin 5 6HR Delta 5.33 ng/L (0-12)
--- NOTE | 2023-02-25 10:46 | PM.MISC ---
Miscellaneous Note Note: Patient's discharge summary from previous admission and chart reviewed in detail. H&P also reviewed. Patient was seen at bedside twice this morning. Patient experiencing shortness of breath and was actively dyspneic. Saturations down to 84%. At times unable to get a reading on pulse ox. Nursing staff called me. We started patient on BiPAP and saturations went up to 100% at that point. Patient is chronically on 4 L nasal cannula otherwise. His blood pressure was also in low 80s systolic at the time. He was confused this morning and was unable to tell me much. He did tell me that he was not in pain and was comfortable at this time. I spoke to his daughter at length regarding patient's current medical issues. She demonstrated understanding knowing that he may be possibly in acute liver failure, may have cholecystitis, Patient also may be in DIC. INR elevated, LDH elevated. Patient is currently running an albumin infusion. Fibrinogen is within normal range at this time. Fibrin degradation products are pending. Haptoglobin is low at 10. Patient's last labs were done last night and labs from this morning are currently pending. I did discuss with the daughter at length regarding patient's management. Daughter and son-in-law along with patient's son are in agreement that they do not want to transfer patient to ICU for aggressive measures. They did not want a central line placed. I discussed regarding Levophed as well which they also do not want at this time. Patient's blood pressure has been running 80 systolic range. Also they declined transfer to a tertiary care facility at admission last night. Daughter stated they may consider hospice however they will discuss with family and decide what to do further. Patient on the BiPAP mask currently asking us to remove it. Patient will be transitioned over to oxy mask or nasal cannula. He is currently on midodrine, Zosyn, stress dose steroids. Diuretics are being held at this time. We will be cautious with use of IV fluids to prevent fluid overload as patient has new onset heart failure from prior admission. Patient's liver ultrasound results also reviewed. There is pericholecystic fluid distended gallbladder present. Possibly a calculus cholecystitis consistent with similar results from previous admission. I will continue patient on Zosyn at this time. Due to his DIC profile, elevated INR, low platelets at 28,000 I do not believe he is a candidate for any kind of surgical intervention at this time or even a percutaneous drainage tube. D-dimer is elevated greater than 20,000. I discussed with family that even if we were to find a clot we will not be able to anticoagulate patient due to his platelets being 28,000 and his INR elevated. He is not a candidate for that at this time. Also noted from previous admission anticoagulation had to be stopped due to patient's low hemoglobin. When patient seen the second time he was a little bit more oriented as he knew he was in the hospital and it was years 2022 and knew his birthday. However did not know who the president was. Patient does have a history of Alzheimer's disease. Patient has periods of confusion and periods of lucidness. Son and son-in-law present at bedside. HIDA scan was ordered for this morning for which the family has declined to carry on at this time. For now we will continue antibiotics, as needed albumin, watch for fluid status. We will also repeat labs and and then go from there. Family still undecided however unsure of 1 thing but they do not want aggressive measures at this time. We will do supportive measures. Updated comp field case manager, RN, family in detail at bedside. Patient is DNR DNI.
[2023-02-25 11:00] LABS: Basophils # 0.1 10^3/uL (0.0-0.1); Basophils % 1.8 %; Eosinophils # 0.1 10^3/uL (0.0-0.8); Eosinophils % 1.1 %; Hematocrit 26.9 % (37-53); Lymphocytes # 1.6 10^3/uL (0.8-4.8); Lymphocytes % 27.4 %; Mean Corpuscular HGB Conc 27.5 g/dL (30-55); Mean Corpuscular Hemoglobin 29.2 pg (27-33); Mean Corpuscular Volume 106.3 fl (82-101); Monocytes # 0.3 10^3/uL (0.2-0.9); Monocytes % 4.6 %; Neutrophils # 3.08 10^3/uL (1.8-7.7); Neutrophils % 54.3 %; Nucleated Red Blood Cells # 0.7 /100WBC; Nucleated Red Blood Cells % 12.5 %; Red Blood Count 2.53 10^6/uL (3.85-5.65); White Blood Count 5.66 10^3/uL (3.29-11.43)
[2023-02-25 11:19] LABS: Alanine Aminotransferase 111 U/L (0-41); Alkaline Phosphatase 355 U/L (40-130); Anion Gap 35.4 (5-19); Aspartate Amino Transferase 465 U/L (0-40); Blood Urea Nitrogen 45 mg/dL (8-23); Calcium 8.1 mg/dL (8.5-10.5); Carbon Dioxide 10 mmol/L (22-29); Chloride 98 mmol/L (98-107); Globulin 2.2 g/dL (1.3-4.6); Glucose 60 mg/dL (65-115); Osmolality Calculated 297 mOsm/kg (285-295); Potassium 4.4 mmol/L (3.5-5.1); Sodium 139 mmol/L (136-145); Total Bilirubin 3.5 mg/dL (0.15-1.2); Total Protein 5.2 g/dL (6.6-8.7)
[2023-02-25 11:29] LABS: INR 4.37 (0.8-1.2)
[2023-02-25 11:30] LABS: Add RBC Morph Yes; Slide Review Slide Review Perform
[2023-02-25 11:32] LABS: Platelet Count 25 10^3/cmm (157-399); Poikilocytosis 2+; RBC Morph Comp No
[2023-02-25 11:33] LABS: Acanthocytes 2+; Burr Cells 1+; Schistocytes 1+
[2023-02-25 11:38] LABS: Glucose Point of Care 86 mg/dL (70-110)
--- NOTE | 2023-02-25 14:28 | PC.SOCIAL ---
Pg 2 IMM Explained to pt's family Pg 2 IMM. No questions voiced. Provided family a copy. Initialed, dated, & timed a copy & placed in chart.
[2023-02-25] MEDS: nicotine 21 mg Patch 1 PATCH TRANSDERMA (15:10)
[2023-02-25] MEDS: morphine 4 mg/mL SDV 1 mL IVP ×3 (17:31→20:47)
[2023-02-25 18:26] LABS: Glucose Point of Care 78 mg/dL (70-110)
--- NOTE | 2023-02-25 20:16 | PC.NURSE ---
Family stated they did not want vitals or blood sugar taken till in the morning so patient could rest. Nurse notified
--- NOTE | 2023-02-25 20:46 | PC.NURSE ---
Urinary catheter placed by day shift nurse.
[2023-02-25] MEDS: ondansetron 2 mg/ML SDV 2 mL 4 MG IVP (20:47)
[2023-02-25 22:15] LABS: Glucose Point of Care 79 mg/dL (70-110)
--- NOTE | 2023-02-25 23:01 | PC.NURSE ---
TOD 22:50. Two nurse verified. Family notified. Dr. Ramon notified. boatbuilder supervisor notified.
--- NOTE | 2023-02-26 00:48 | PC.NURSE ---
Family took all patient belongings, except blue blanket. Blue blanket sent with home staff.
--- NOTE | 2023-02-26 08:53 | PM.DDS ---
Discharge Providers DDS Date of Admission: 02/25/23 04:32 Date Summary Completed: 02/26/23 Attending Provider at Admission: Leeroy Ramon Time of : 22:50 Attending Provider at Discharge: Parvin Craft MD Primary Care Provider: DO GIANA Grace Diagnoses Hospital Diagnoses (1) Bradycardia: (2) Hypoglycemia: (3) DIC (disseminated intravascular coagulation): (4) Thrombocytopenia: (5) Acute liver failure: (6) Abnormal liver function: (7) LASHELL (acute kidney injury): (8) Goals of care, counseling/discussion: Reason for Visit Reason for Visit Resp Distress Summary Date and Time of Date of : 02/25/23 Time of : 22:50 Summary Summary: Please see please see progress note dated 02/25/2023. Patient admitted with possible acute liver failure and DIC. Family did not want aggressive measures and started comfort care for patient. He on 02/26/2002/04/2023 at 22.50 Additional Data Advance directives?: No Discharge Plan Discharge Patient Disposition: Condition: Stable Prescriptions: No Action omeprazole 40 mg capsule,delayed release(DR/EC) 40 mg PO DAILY simvastatin 20 mg tablet 20 mg PO DAILY montelukast [Singulair] 10 mg tablet 10 mg PO DAILY aspirin [Adult Low Dose Aspirin] 81 mg tablet,delayed release (DR/EC) 81 mg PO DAILY acetaminophen 500 mg capsule 500 mg PO DAILY PRN (Reason: Pain) tamsulosin 0.4 mg capsule 0.4 mg PO BID PRN (Reason: URINE FLOW) ascorbic acid (vitamin C) [Vitamin C] 500 mg capsule, extended release 500 mg PO DAILY cholecalciferol (vitamin D3) 10 mcg (400 unit) capsule 10 mcg PO DAILY prednisone 5 mg tablet 5 mg PO BID Qty: 60 3RF abiraterone 250 mg tablet See Rx Instructions .ROUTE .COMPLEX Qty: 28 0RF Hold Instructions: Resume on 03/15/23. hold until you see oncology Dose Instruction: TAKE 1 TABLET BY MOUTH ONCE DAILY. TAKE WITH OR WITHIN 30 MINS OF A LOW FAT BREAKFAST Rx Instructions: TAKE 1 TABLET BY MOUTH ONCE DAILY. TAKE WITH OR WITHIN 30 MINS OF A LOW FAT BREAKFAST magnesium L-lactate [Magtab] 84 mg Tablet Extended Release 84 mg PO DAILY 30 Days Qty: 30 0RF metronidazole 500 mg Tablet 500 mg PO TID 30 Days Qty: 90 0RF nicotine 21 mg/24 hr Patch 24 Hour 1 patch transdermal DAILY 28 Days Qty: 28 0RF furosemide [Lasix] 40 mg tablet 40 mg PO DAILY PRN (Reason: for sob or edema or weight gain more than 3lbs) 30 Days Qty: 30 0RF potassium chloride [Klor-Con M20] 20 mEq tablet,ER particles/crystals 20 meq PO DAILY PRN (Reason: use with lasix only) 30 Days Qty: 30 0RF Milk of Magnesia 400 mg/5 mL Suspension 30 ml PO DAILY PRN (Reason: Constipation) bisacodyl 10 mg Suppository [address] DAILY PRN (Reason: Constipation) Fleet Enema 19-7 gram/118 mL Enema [address] DAILY PRN (Reason: Constipation) metoprolol succinate 50 mg tablet extended release 24 hr 50 mg PO DAILY Referrals: Daniele Clarke DO [Primary Care Provider] - Patient Instructions: Opioid Safety Probable Cause of Probable cause of : Cardiac arrest DS Attestations Time Spent in /Discharge Care*: less than 30 min Quality - AMI: AMI present?: No Quality - Stroke: CVA present?: No Quality - VTE: VTE present?: No Coding Level of Care Code Acute Code for Chg Fwd Diagnoses Bradycardia R00.1 Hypoglycemia E16.2 DIC (disseminated intravascular coagulation) D65 Thrombocytopenia D69.6 Acute liver failure K72.00 Abnormal liver function R94.5 LASHELL (acute kidney injury) N17.9 Goals of care, counseling/discussion Z71.89
[2023-03-03 02:55] LABS: Fibrinogen Degradation Product 80 mcg/mL (LESS THAN 5)
== END 2023-02-25 23:26 | disposition expired | DRG 640 ==
LOC: ER 02:52 → ICU 04:33 → MEDSURG 04:48
PROVIDERS: Admitting Provider Internal Medicine; Emergency Provider Emergency Medicine; PCP Internal Medicine; Visit Provider Internal Medicine
DX: E16.2 Hypoglycemia, unspecified (principal); D65 Disseminated intravascular coagulation [defibrination syndrome]; K72.00 Acute and subacute hepatic failure without coma; N17.9 Acute kidney failure, unspecified; C79.51 Secondary malignant neoplasm of bone; I42.9 Cardiomyopathy, unspecified; D69.6 Thrombocytopenia, unspecified; I46.9 Cardiac arrest, cause unspecified; C61 Malignant neoplasm of prostate; K76.0 Fatty (change of) liver, not elsewhere classified; G30.9 Alzheimer's disease, unspecified; F02.80 Dementia in other diseases classified elsewhere, unspecified severity, without behavioral disturbance, psychotic disturbance, mood disturbance, and anxiety; E78.5 Hyperlipidemia, unspecified; I11.0 Hypertensive heart disease with heart failure; I50.9 Heart failure, unspecified; Z95.0 Presence of cardiac pacemaker; I49.5 Sick sinus syndrome; Z66 Do not resuscitate; Z51.5 Encounter for palliative care; J43.9 Emphysema, unspecified; N40.0 Benign prostatic hyperplasia without lower urinary tract symptoms; F17.210 Nicotine dependence, cigarettes, uncomplicated; Z87.440 Personal history of urinary (tract) infections; Z99.81 Dependence on supplemental oxygen
CPT/HCPCS: 36415; 36416; 51702; 71045; 74176; 76705; 80053; 81001; 82140; 82962; 83010; 83615; 83735; 83880; 84484; 85007; 85025; 85362; 85378; 85384; 85610; 85730; 93005; 93308; 94660; 96374; 96375; 99285; C9113; J0132; J1720; J2270; J2405; J7030; J7050; J7060; P9046